=== PATIENT | female | born 1945 | race Caucasian/White ===

== ENCOUNTER 2016-11-13 09:35 | Observation (INO) | payer OTHER, MEDICAID ==
[2016-11-13] MEDS ORDERED: DILTIAZEM 25 MG/5 ML VIAL IVP ONE (09:45)
[2016-11-13] MEDS ORDERED: DILTIAZEM 125 MG in D5W 125 ML IV ONE (09:45)
[2016-11-13 09:50] LABS: % IMMATURE GRANULYOCYTES 1.1 % (0.0-1.1); ABSOLUTE IMMATURE GRANULOCYTES 0.09 10^3/uL (0.00-0.10); ADD DIFF? NO; ADD MORPH? NO; ADD SCAN? NO; ATYPICAL LYMPHOCYTE FLAG 10 (0-99); FRAGMENT RBC FLAG 0 (0-99); HEMATOCRIT 41.1 % (38.0-47.0); HEMOGLOBIN 14.2 g/dL (12.6-16.3); LEFT SHIFT FLG 0 (0-99); LIPEMIA HEMOLYSIS FLAG 90 (0-99); MEAN CELL HEMOGLOBIN 32.1 pg (27.9-34.1); MEAN CELL HEMOGLOBIN CONCENTR. 34.5 g/dL (32.4-36.7); MEAN PLATELET VOLUME 8.8 fL (8.7-11.7); PLATELET CLUMPS FLAG 10 (0-99); PLATELET COUNT 297 10^3/uL (150-400); RED BLOOD CELL COUNT 4.42 10^6/uL (4.18-5.33); RED CELL DISTRIBUTION WIDTH 12.8 % (11.5-15.2)
--- NOTE | 2016-11-13 09:54 | EDPHY ---
H & P HPI/ROS: CHIEF COMPLAINT: Chest pain HISTORY OF PRESENT ILLNESS: Patient complains of chest pain that started around 7:28 a.m. this morning. She resides at [facility] and under independent living status. She says the pain is retrosternal. It is mild to moderate. It is constant. It is much better than at the time of onset. Does not radiate. Some nausea but no vomiting. Some headache. Minimal shortness of breath. No fever chills. No recent cough or illness. She arrives by EMS in atrial fibrillation with RVR but normotensive. She does have a history of atrial fibrillation but she is not anticoagulated, and she is on no rate control agents. She was given 381 mg aspirins en route. No other medications administered. No other associated complaints or modifying factors. REVIEW OF SYSTEMS: Ten systems reviewed and are negative unless otherwise noted in the HPI PERTINENT MEDICAL HISTORY: Atrial fibrillation, previous PA, previous CVA, current smoker EXAMINATION General Appearance: Alert, no distress Head: normocephalic, atraumatic Eyes: Pupils equal and round, no conjunctival pallor or injection ENT, Mouth: Mucous membranes moist Neck: Normal inspection, supple, non-tender Respiratory: Scattered rhonchi. No wheezing, crackles or diminishment. Cardiovascular: Irregularly irregular rhythm Gastrointestinal: Abdomen is soft and nontender Back: non-tender, no bony abnormalities Neurological: GCS 15. A&O, nonfocal, strength 5/5. No facial droop. No dysmetria. No pronator drift. Skin: Warm and dry, no rash. No petechia Extremities: Nontender, no pedal edema Psychiatric: Mood and affect normal DIFFERENTIAL DIAGNOSES: Including but not limited to AFib with RVR, ACS, CAD pneumonia, COPD electrolyte disturbance, hypothyroid MDM: 9:50 a.m. Chest pain along with atrial fibrillation RVR. Pressure is 120-140s systolic. Pain is still present. Chest x-ray, laboratory studies are pending. I have also ordered a bolus and titratable drip of diltiazem. EKG is currently being obtained. 10:05 a.m. EKG does confirm atrial fibrillation with RVR. Her blood pressure remains in the 115-130 systolic. We are proceeding with bolus and drip at 5 milligrams/ hour. Proceed with admission after troponin and chest x-ray returned. 10:30 a.m. Troponin is negative. BNP is slightly elevated. Vital signs remained stable after bolus. Diltiazem drip is currently 2.5 milligrams/hour. Chest x-ray is not yet been obtained, and we have requested this be done at this time. Then we will proceed with admission. 10:40 a.m. Chest x-ray as interpreted by me reveals COPD presentation. No obvious pneumonia. Patient remains hemodynamically stable on the diltiazem drip. I will proceed with admission to the hospitalist. 10:45 a.m. I have discussed the case with the hospitalist Latricia Cooper. She informed me that the patient can be admitted to PCU bed to Dr. Caitlyn Jones. She has been admitted in stable condition on a diltiazem, titrating drips. SUPERVISION: Patient was evaluated in conjunction with the supervising physician. Please see their note for details. Source: Patient, Old records Exam Limitations: No limitations Constitutional: Initial Vital Signs Temperature (C) 96.8 F 11/13/16 09:35 Heart Rate 142 H 11/13/16 09:35 Respiratory Rate 20 11/13/16 09:35 Blood Pressure 141/106 H 11/13/16 09:35 O2 Sat (%) 93 11/13/16 09:35 O2 Delivery Mode Room Air Allergies/Adverse Reactions: olanzapine [From Zyprexa] Allergy (Unknown, Verified 11/13/16 09:46) Unknown Penicillins Allergy (Unknown, Verified 11/13/16 09:46) Unknown theophylline [Theophylline] Allergy (Unknown, Verified 11/13/16 09:46) Unknown amoxicillin Allergy (Verified 11/13/16 09:46) diphenhydramine HCl [From Benadryl] Allergy (Verified 11/13/16 09:46) ENVIRONMENTAL Allergy (Unknown, Uncoded 04/07/11 14:11) Unknown TB VAC Allergy (Uncoded 02/11/11 14:20) theodur Allergy (Uncoded 10/27/09 16:43) Home Medications: Medication Instructions Recorded Metoprolol Tartrate 100 mg PO BID 02/11/11 clonIDINE [Catapres] 0.1 mg PO BID 02/11/11 Norvasc 11/13/16 Medical Decision Making - Data Points Laboratory Results: Laboratory Results 11/13/16 09:40 11/13/16 09:40 11/13/16 11/13/16 11/13/16 09:40 09:40 09:40 WBC 8.43 10^3/uL 10^3/uL (3.80-9.50) RBC 4.42 10^6/uL 10^6/uL (4.18-5.33) Hgb 14.2 g/dL g/dL (12.6-16.3) Hct 41.1 % % (38.0-47.0) MCV 93.0 fL fL (81.5-99.8) MCH 32.1 pg pg (27.9-34.1) MCHC 34.5 g/dL g/dL (32.4-36.7) RDW 12.8 % % (11.5-15.2) Plt Count 297 10^3/uL 10^3/uL (150-400) MPV 8.8 fL fL (8.7-11.7) Neut % (Auto) 63.5 % % (39.3-74.2) Lymph % (Auto) 22.5 % % (15.0-45.0) [place] % (Auto) 10.6 % % (4.5-13.0) Eos % (Auto) 1.7 % % (0.6-7.6) Baso % (Auto) 0.6 % % (0.3-1.7) Nucleat RBC Rel Count 0.0 % % (0.0-0.2) Absolute Neuts (auto) 5.36 10^3/uL 10^3/uL (1.70-6.50) Absolute Lymphs (auto) 1.90 10^3/uL 10^3/uL (1.00-3.00) Absolute Monos (auto) 0.89 10^3/uL H 10^3/uL (0.30-0.80) Absolute Eos (auto) 0.14 10^3/uL 10^3/uL (0.03-0.40) Absolute Basos (auto) 0.05 10^3/uL 10^3/uL (0.02-0.10) Absolute Nucleated RBC 0.00 10^3/uL 10^3/uL (0-0.01) Immature Gran % 1.1 % % (0.0-1.1) Immature Gran # 0.09 10^3/uL 10^3/uL (0.00-0.10) PT 12.1 SEC SEC (12.0-15.0) INR 0.91 (0.83-1.16) APTT 26.8 SEC SEC (23.0-38.0) Sodium 145 mEq/L H mEq/L (134-144) Potassium 4.1 mEq/L mEq/L (3.5-5.2) Chloride 102 mEq/L mEq/L (97-110) Carbon Dioxide 29 mEq/l mEq/l (22-31) Anion Gap 14 mEq/L mEq/L (8-16) BUN 15 mg/dL mg/dL (7-23) Creatinine 0.9 mg/dL mg/dL (0.6-1.0) Estimated GFR > 60 Glucose 115 mg/dL H mg/dL (70-100) Calcium 9.6 mg/dL mg/dL (8.5-10.4) Troponin I < 0.012 ng/mL ng/mL (0-0.034) NT-Pro-B Natriuret Pep 972 pg/mL H pg/mL (0-125) Lipase 232.0 IU/L IU/L (23-300) TSH 1.290 uIU/mL uIU/mL (0.465-4.680) Medications Given: Discontinued Medications Diltiazem HCl (Cardizem 25 Mg/5 Ml Vial) 20 mg IVP EDNOW ONE Stop: 11/13/16 09:46 Last Admin: 11/13/16 10:10 Dose: 20 mg Diltiazem HCl 125 mg/ Dextrose 125 mls @ 0 mls/hr IV EDNOW ONE; As Directed PRN Reason: Protocol Stop: 11/13/16 09:46 Last Admin: 11/13/16 10:20 Dose: 125 mls Departure - Departure Disposition: [facility] Acute Clinical Impression: Acute chest pain, Atrial fibrillation with RVR Condition: Good Referrals: Patient,NotPresent [Primary Care Provider] - As per Instructions
--- NOTE | 2016-11-13 09:55 | CPEKG ---
Heart Rate: 106 RR Interval: 566 QRSD Interval: 76 QT Interval: 348 QTC Interval: 463 QRS [place]: 38 T Wave [place]: 89 EKG Severity - ABNORMAL ECG - EKG Impression: ATRIAL FIBRILLATION Electronically Signed By: Harvinder Peacock 13-Nov-2016 14:34:52
[2016-11-13 09:59] LABS: INR 0.91 (0.83-1.16); PROTIME(PATIENT) 12.1 SEC (12.0-15.0)
[2016-11-13 10:00] LABS: APTT 26.8 SEC (23.0-38.0)
[2016-11-13 10:03] LABS: ANION GAP 14 mEq/L (8-16); CALCIUM 9.6 mg/dL (8.5-10.4); CARBON DIOXIDE 29 mEq/l (22-31); CHLORIDE 102 mEq/L (97-110); CREATININE 0.9 mg/dL (0.6-1.0); GLOMERULAR FILTRATION RATE > 60; GLUCOSE 115 mg/dL (70-100); POTASSIUM 4.1 mEq/L (3.5-5.2); SODIUM 145 mEq/L (134-144)
[2016-11-13 10:16] LABS: TROPONIN I < 0.012 ng/mL (0-0.034)
[2016-11-13] MEDS ORDERED: ONDANSETRON DISINTEGRATING 4 MG TAB PO PRN (12:35)
[2016-11-13] MEDS ORDERED: ONDANSETRON 4 MG/2 ML VIAL IVP PRN (12:35)
[2016-11-13] MEDS ORDERED: DOCUSATE SODIUM 100 MG CAP PO PRN (12:38)
[2016-11-13] MEDS ORDERED: guaiFENesin 200 MG/10 ML UDCUP PO PRN (12:38)
[2016-11-13] MEDS ORDERED: SENNOSIDES/DOCUSATE SODIUM TAB PO PRN (12:38)
[2016-11-13] MEDS ORDERED: MAGNESIUM HYDROXIDE 30 ML UDCUP PO PRN (12:38)
[2016-11-13] MEDS ORDERED: DILTIAZEM 125 MG in D5W 125 ML IV SCH (13:00)
--- NOTE | 2016-11-13 13:26 | CPEKG ---
Heart Rate: 48 RR Interval: 1250 P-R Interval: 148 QRSD Interval: 84 QT Interval: 460 QTC Interval: 411 P [place]: 49 QRS [place]: 32 T Wave [place]: 59 EKG Severity - BORDERLINE ECG - EKG Impression: SINUS BRADYCARDIA Electronically Signed By: Wilbur Grant 13-Nov-2016 16:37:35
--- NOTE | 2016-11-13 13:30 | PDGENHP ---
History and Physical - Chief Complaint chest pain - History of Present Illness 71 yo female with h/o paroxysmal A fib, CAD s/p [place] with 2 stents and h/o CVA presents to ED from [place], where she lives independently, after developing crushing chest pain this morning. She had her morning cigarette and ate breakfast. While resting in bed, she felt tightness and heaviness in her chest. There was no associated SOB, N/V, diaphoresis or radiation of the pain. She denies fevers/chills, abdominal pain, or urinary symptoms. She is not anti-coagulated for her a fib as she states blood thinners make her cold. She takes daily ASA. In the ED, she was found to be in A fib with RVR. A diltiazem drip was started and she is admitted to the PCU for further management. History Information - Allergies/Home Medication List Allergies/Adverse Reactions: olanzapine [From Zyprexa] Allergy (Unknown, Verified 11/13/16 09:46) Unknown Penicillins Allergy (Unknown, Verified 11/13/16 09:46) Unknown theophylline [Theophylline] Allergy (Unknown, Verified 11/13/16 09:46) Unknown amoxicillin Allergy (Verified 11/13/16 09:46) diphenhydramine HCl [From Benadryl] Allergy (Verified 11/13/16 09:46) ENVIRONMENTAL Allergy (Unknown, Uncoded 04/07/11 14:11) Unknown TB VAC Allergy (Uncoded 02/11/11 14:20) theodur Allergy (Uncoded 10/27/09 16:43) Home Medications: Acetaminophen [Tylenol ES 500 mg (*)] 1,000 mg PO TID PRN 11/13/16 [Last Taken 11/13/16 05:00] Aspirin [Aspirin 81mg (*)] 81 mg PO DAILY 11/13/16 [Last Taken 11/11/16] Docusate Sodium [Colace 100 MG (*)] 100 mg PO DAILY PRN 11/13/16 [Last Taken Unknown] Ergocalciferol [Vitamin D2 (*)] 50,000 unit PO Q30D 11/13/16 [Last Taken Unknown ] Herbals/Supplements -Info Only 1 ea PO DAILY 11/13/16 [Last Taken Unknown] Magnesium Hydroxide [Milk of Magnesia] 30 ml PO DAILY PRN 11/13/16 [Last Taken Unknown] Metoprolol Tartrate [Lopressor 50 mg (*)] 50 mg PO BID 11/13/16 [Last Taken 02/22] Sennosides/Docusate Sodium [Senna-S Tablet] 2 each PO DAILY PRN 11/13/16 [Last Taken Unknown] amLODIPine BESYLATE [Norvasc 10 mg (*)] 10 mg PO DAILY 11/13/16 [Last Taken 02/22] clonIDINE [Catapres (*)] 0.1 mg PO DAILY PRN 11/13/16 [Last Taken Unknown] clonIDINE [Catapres (*)] 0.2 mg PO BID 11/13/16 [Last Taken 11/13/16] guaiFENesin [Cough Syrup] 200 mg PO Q4 PRN 11/13/16 [Last Taken Unknown] I have personally reviewed and updated: family history, medical history, social history, surgical history - Past Medical History atrial fibrillation, coronary artery disease, CVA, hypertension, hyperlipidemia Additional medical history: CAD with stents - Surgical History Reports: hysterectomy Additional surgical history: cardiac stents, bladder suspension surgery - Family History Positive for: CAD - Social History Smoking Status: Current every day smoker Alcohol Use: None Drug Use: None Additional social history: 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 Review of Systems ROS: 10pt was reviewed & negative except for what was stated in HPI & below Physical Exam Temp Pulse Resp BP Pulse Ox 36.7 C 47 L 20 101/47 L 93 11/13/16 11:40 11/13/16 13:02 11/13/16 11:40 11/13/16 13:02 11/13/16 11:40 Constitutional: no apparent distress Eyes: PERRL Ears, Nose, Mouth, Throat: moist mucous membranes Cardiovascular: irregularly irregular Respiratory: no respiratory distress, clear to auscultation Gastrointestinal: normoactive bowel sounds, soft, non-tender abdomen Skin: warm Musculoskeletal: full muscle strength, other (no edema) Neurologic: AAOx3 Psychiatric: interacting appropriately Lab Data & Imaging Review 11/13/16 09:40 11/13/16 09:40 WBC 8.43 10^3/uL (3.80-9.50) 11/13/16 09:40 RBC 4.42 10^6/uL (4.18-5.33) 11/13/16 09:40 Hgb 14.2 g/dL (12.6-16.3) 11/13/16 09:40 Hct 41.1 % (38.0-47.0) 11/13/16 09:40 MCV 93.0 fL (81.5-99.8) 11/13/16 09:40 MCH 32.1 pg (27.9-34.1) 11/13/16 09:40 MCHC 34.5 g/dL (32.4-36.7) 11/13/16 09:40 RDW 12.8 % (11.5-15.2) 11/13/16 09:40 Plt Count 297 10^3/uL (150-400) 11/13/16 09:40 MPV 8.8 fL (8.7-11.7) 11/13/16 09:40 Neut % (Auto) 63.5 % (39.3-74.2) 11/13/16 09:40 Lymph % (Auto) 22.5 % (15.0-45.0) 11/13/16 09:40 [place] % (Auto) 10.6 % (4.5-13.0) 11/13/16 09:40 Eos % (Auto) 1.7 % (0.6-7.6) 11/13/16 09:40 Baso % (Auto) 0.6 % (0.3-1.7) 11/13/16 09:40 Nucleat RBC Rel Count 0.0 % (0.0-0.2) 11/13/16 09:40 Absolute Neuts (auto) 5.36 10^3/uL (1.70-6.50) 11/13/16 09:40 Absolute Lymphs (auto) 1.90 10^3/uL (1.00-3.00) 11/13/16 09:40 Absolute Monos (auto) 0.89 10^3/uL (0.30-0.80) H 11/13/16 09:40 Absolute Eos (auto) 0.14 10^3/uL (0.03-0.40) 11/13/16 09:40 Absolute Basos (auto) 0.05 10^3/uL (0.02-0.10) 11/13/16 09:40 Absolute Nucleated RBC 0.00 10^3/uL (0-0.01) 11/13/16 09:40 Immature Gran % 1.1 % (0.0-1.1) 11/13/16 09:40 Immature Gran # 0.09 10^3/uL (0.00-0.10) 11/13/16 09:40 PT 12.1 SEC (12.0-15.0) 11/13/16 09:40 INR 0.91 (0.83-1.16) 11/13/16 09:40 APTT 26.8 SEC (23.0-38.0) 11/13/16 09:40 Sodium 145 mEq/L (134-144) H 11/13/16 09:40 Potassium 4.1 mEq/L (3.5-5.2) 11/13/16 09:40 Chloride 102 mEq/L (97-110) 11/13/16 09:40 Carbon Dioxide 29 mEq/l (22-31) 11/13/16 09:40 Anion Gap 14 mEq/L (8-16) 11/13/16 09:40 BUN 15 mg/dL (7-23) 11/13/16 09:40 Creatinine 0.9 mg/dL (0.6-1.0) 11/13/16 09:40 Estimated GFR > 60 11/13/16 09:40 Glucose 115 mg/dL (70-100) H 11/13/16 09:40 Calcium 9.6 mg/dL (8.5-10.4) 11/13/16 09:40 Troponin I < 0.012 ng/mL (0-0.034) 11/13/16 09:40 NT-Pro-B Natriuret Pep 972 pg/mL (0-125) H 11/13/16 09:40 Lipase 232.0 IU/L (23-300) 11/13/16 09:40 TSH 1.290 uIU/mL (0.465-4.680) 11/13/16 09:40 Visualized and Interpreted Chest x-ray results: Yes Chest X-Ray results: no infiltrate, normal heart size Visualized and Interpreted EKG results: Yes EKG additional interpertation: A fib Assessment & Plan Assessment: A fib with RVR - Paroxysmal by hx. Presented with HR 140's and started on Diltiazem drip. BP initially dropped to 70's, but improved with rate control. She then had a conversion pause on telemetry of about 3 seconds and is now in sinus bradycardia with SBP >100. Chads vasc 5. Discussed anticoagulation, pt reluctant and wants to discuss this with her trusted case consultant. -d/c dilt drip given conversion with pause -holding BB for now with bradycardia -check echo -cardiology to see -ASA for now, but I recommended anti-coagulation. She'd like to discuss this with cards. If she is agreeable, would proceed with Heparin or LMWH until chest pain w/u completed, then transition to coumadin or eliquis. Chest pain - likely secondary to onset of A fib. She is chest pain free at this time. Initial trop neg, EKG non-ischemic. -trend trop -echo as above to r/o WMA -stress test prior to dc -check lipid panel in am and start statin if indicated H/O CAD with prior [place] s/p stent - cont ASA, holding BB due to bradycardia, check lipid status and plan for stress test as above. Hypertension - she is on multiple anti-hypertensives, including Amlodipine, Clonidine and Metoprolol, which are held for now due to hypotension. Will resume as clinically indicated. Full code Dispo - obs
[2016-11-13] MEDS ORDERED: TEMAZEPAM 15 MG CAP PO PRN ×2 (13:45→21:06)
[2016-11-13] MEDS: ACETAMINOPHEN 325 MG TAB PO PRN ×2 (14:07→21:08)
[2016-11-13 15:03] LABS: ALANINE AMINOTRANSFERASE 28 IU/L (9-52); ALBUMIN 4.1 g/dL (3.5-5.0); ALKALINE PHOSPHATASE 76 IU/L (38-126); ASPARTATE AMINOTRANSFERASE 33 IU/L (14-46); BILIRUBIN,TOTAL 0.5 mg/dL (0.1-1.4); BILIRUBIN-CONJUGATED 0.4 mg/dL (0.0-0.5); BILIRUBIN-UNCONJUGATED 0.1 mg/dL (0.0-1.1); TOTAL PROTEIN 6.7 g/dL (6.3-8.2)
[2016-11-13 15:15] LABS: TROPONIN I < 0.012 ng/mL (0-0.034)
[2016-11-13] MEDS ORDERED: NITROGLYCERIN 0.4 MG BTL SL PRN (16:08)
--- NOTE | 2016-11-13 16:08 | GCON ---
[f rep st] CONSULTATION CARDIOLOGY CONSULTATION. REASON FOR CONSULTATION: We were asked by Dr. Caitlyn Jones of [facility] to evaluate the patient for her new onset chest pain, as well as her paroxysmal atrial fibrillation with rapid ventricular rates. HISTORY OF PRESENT ILLNESS: The patient is a 71-year-old female with a history of paroxysmal atrial fibrillation, CAD, status post PTCA and stenting to RCA in 2002, hypertension, ongoing tobacco abuse, who is admitted from the emergency department for atrial fibrillation with rapid ventricular rate. She reports awakening in her usual state of health. At 7:28, she noted a substernal crushing 10/10 chest discomfort. She denies any radiation or associated nausea , diaphoresis, or dyspnea. Symptoms were relieved after she arrived to the emergency department after being given diltiazem for rate control for her atrial fibrillation. Over the past 3 months, she has noted episodes of this chest discomfort that are typically self-relieved. When this episode did not stop, she presented for further evaluation. She also reports that she will have occasional racing heart rates. She reports that she is active with her ADLs. She will walk the halls of [employer]. She notes dyspnea with this but does not need to stop to rest. She denies any pnd, orthopnea, peripheral edema, or presyncope/syncope. She has previously been seen in our office but has been lost to followup, with her last visit being in 2012. PAST MEDICAL HISTORY: 1. CAD. 2. 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 3. Paroxysmal atrial fibrillation. 4. Bilateral shoulder surgery. 5. Previous hernia surgery. 6. Untreated dyslipidemia. 7. Hypertension. 8. Pulmonary hypertension. 9. Bladder suspension surgery. 10. Hysterectomy. 11. History of CVA. OUTPATIENT MEDICATIONS: Yet to be reconciled, but are listed as senna, guaifenesin, magnesium, Colace, clonidine 0.1 daily p.r.n., Tylenol 1000 mg t.i.d., clonidine 0.2 mg p.o. b.i.d., metoprolol tartrate 50 mg p.o. b.i.d., amlodipine 10 mg p.o. daily, vitamin D3, aspirin. ALLERGIES: Listed to Zyprexa, penicillin, theophylline, amoxicillin, diphenhydramine, TB vaccination, [place], and some environmental allergen. SOCIAL HISTORY: Patient reports occasional alcohol. She is an everyday smoker and smokes up to 6 cigarettes daily. REVIEW OF SYSTEMS: As per HPI. A complete 10-point review of systems was obtained and is negative except for what is dictated. PHYSICAL EXAMINATION: VITAL SIGNS: BP of 101/47, heart rate 47, respirations 20, O2 saturation 93% on room air, temp of 98.1 degrees. GENERAL: She is a very pleasant female, in no apparent distress. HEENT: Eyes are without scleral icterus. Mucous membranes moist. HEART: Regular rate and rhythm with a 2/6 systolic ejection murmur, with no radiation into carotids. There is JVD present to mid neck. LUNGS: Clear. ABDOMEN: Soft, with normoactive bowel sounds. No hepatosplenomegaly detected. SKIN: Warm and dry. 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 LABORATORY DATA: CBC with WBC 8.43, hemoglobin 14.2, hematocrit 41.1, platelets of 297. BMP with sodium 145, potassium 4.1, chloride 102, CO2 29, BUN 15, creatinine 0.9, glucose 115. NT proBNP of 972. Last troponin is less than 0.012. TSH of 1.29. 12-lead ECG, personally interpreted, demonstrates sinus bradycardia at 48 with LVH by voltage. 11/13/2016 EKG at 9:45 a.m. shows atrial fibrillation with variable rates up to 150. Chest x-ray showed borderline cardiac prominence with mild cephalization of pulmonary blood flow. I discussed patient's care with Dr. Caitlyn Jones. IMPRESSION AND PLAN: The patient is a 71-year-old female, who presents with crushing chest pressure. 1. Chest pain. The patient has known coronary artery disease. Her first troponin is negative and her EKG appears nonischemic. We will plan to cycle her enzymes and consider cardiac catheterization for further evaluation. 2. Hypertension. Patient reports a history of resistant hypertension. Currently, her blood pressure appears controlled. Her home medications may be continued. 3. Ongoing tobacco abuse. We will plan for cessation counseling prior to her discharge. 4. Atrial fibrillation. She has an elevated CHADS-VASc, as she claims a history of cerebrovascular accident. Her CHADS-VASc score is at least 5. We will address full anticoagulation prior to her discharge. In the past, she has declined this. Currently, she may be placed on aspirin therapy. 5. History of moderate pulmonary hypertension and moderate tricuspid regurgitation. Echo will be repeated. 6. Dyslipidemia. We will plan to obtain repeat lipids during her admission. /[id number]/MODL MTDSantosh
--- NOTE | 2016-11-13 16:37 | ECHO ---
[id number] + + [address] : : [place] [address] : : [phone] + Adult Echocardiographic Report + -----+ :Name: Josephine WHITE Date: 11/13/2016 02:45 PM : : Hospital Admission Number: [id number] Location : 221: :: 1945 Gender: Female Height: 61 in : :Age: 71 yrs Race: WH Weight: 142 lb : :Reason For Study: Eval LV Fx : : BSA: 1.6 meters2 : :History: New onset A-Fib, Chest Pain : + -----+ MMode/2D Measurements \T\ Calculations IVSd: 0.83 cm LVIDd: 4.1 cm FS: 44.6 % Ao root diam: 3.0 cm LVPWd: 0.93 cm LVIDs: 2.3 cm EDV(Teich): 74.5 ml ACS: 1.9 cm ESV(Teich): 17.6 ml EF(Teich): 76.4 % Normal Measurement Values: + + :LVIDd (3.5-5.7cm) IVSd (0.6-1.1cm) LVPWd (0.6-1.1cm) Aortic Root (2.0-3.7cm)Left Atrium (1.5-4.0cm): :LV Vol(d) (76-115ml) LV Vol(s) (29-48ml) Ejec Fraction (50-65%)PV Sony (0.6- 1.2m/s) TV Sony (0.4-1.0m/s) : :MV E Sony (0.8-1.0m/s)MV A Sony (0.3-1.0m/s)LVOT Sony (0.7-1.2m/s) Asc Ao Sony ( 0.9-1.8m/s) : + + Doppler Measurements \T\ Calculations MV E max sony: Ao V2 max: LV V1 max: PA V2 max: 92.8 cm/sec 97.7 cm/sec 87.4 cm/sec 77.4 cm/sec MV A max sony: Ao max PG: LV V1 max PG: PA max P.4 cm/sec 3.8 mmHg 3.1 mmHg 2.4 mmHg MV E/A: 2.2 TR max sony: 319.0 cm/sec TR max P.7 mmHg RAP systole: 5.0 mmHg RVSP(TR): 45.7 mmHg Left Ventricle The left ventricle is normal in size and function. There is normal left ventricular wall thickness. The left ventricular ejection fraction is normal. Ejection Fraction = 76%. No regional wall motion abnormalities noted. Right Ventricle The right ventricle is normal in size and function. Atria The left atrium is mildly dilated. Right atrial size is normal. Mitral Valve The mitral valve is normal in structure and function. There is no evidence of mitral valve prolapse. There is no mitral valve stenosis. There is trace to mild mitral regurgitation. Tricuspid Valve There is mild tricuspid regurgitation. Right ventricular systolic pressure is 46mmHg. There is Doppler evidence for mild pulmonary hypertension. Aortic Valve The aortic valve is normal in structure and function. The aortic valve is trileaflet. There is no aortic stenosis. There is no aortic insufficiency. Pulmonic Valve The pulmonic valve is normal in structure and function. There is no pulmonic valvular regurgitation. Great Vessels The aortic root is normal size. Pericardium/Pleural There is no pericardial effusion. Conclusion A complete two-dimensional transthoracic echocardiogram was performed (2D, M-mode, Doppler and color flow Doppler). The left ventricle is normal in size and function. The left ventricular ejection fraction is normal. Ejection Fraction = 76%. No regional wall motion abnormalities noted. The right ventricle is normal in size and function. The mitral valve is normal in structure and function. There is trace to mild mitral regurgitation. There is mild tricuspid regurgitation. Right ventricular systolic pressure is 46mmHg. There is Doppler evidence for mild pulmonary hypertension. The left atrium is mildly dilated. The aortic valve is normal in structure and function. The aortic valve is trileaflet. There is no pericardial effusion. Final Reading Physician: Dr Denisse Villanueva electronically signed on 11/13/2016 04:36 PM Ordering Physician: Caitlyn Jones Performed By: Atnwan Mejia, CS
[2016-11-13] MEDS: METOPROLOL TARTRATE 25 MG TAB PO SCH (17:47)
[2016-11-13] MEDS: ALPRAZolam 0.25 MG TAB PO PRN (21:18)
[2016-11-14 05:33] LABS: % IMMATURE GRANULYOCYTES 1.2 % (0.0-1.1); ADD DIFF? NO; ADD MORPH? NO; ADD SCAN? NO; ATYPICAL LYMPHOCYTE FLAG 20 (0-99); FRAGMENT RBC FLAG 0 (0-99); HEMATOCRIT 38.9 % (38.0-47.0); HEMOGLOBIN 13.4 g/dL (12.6-16.3); LEFT SHIFT FLG 10 (0-99); LIPEMIA HEMOLYSIS FLAG 90 (0-99); MEAN CELL HEMOGLOBIN 32.4 pg (27.9-34.1); MEAN CELL HEMOGLOBIN CONCENTR. 34.4 g/dL (32.4-36.7); MEAN CELL VOLUME 94.2 fL (81.5-99.8); MEAN PLATELET VOLUME 8.9 fL (8.7-11.7); PLATELET CLUMPS FLAG 0 (0-99); PLATELET COUNT 294 10^3/uL (150-400); RED BLOOD CELL COUNT 4.13 10^6/uL (4.18-5.33); RED CELL DISTRIBUTION WIDTH 13.1 % (11.5-15.2)
[2016-11-14 05:58] LABS: APTT 27.1 SEC (23.0-38.0); INR 0.92 (0.83-1.16); PROTIME(PATIENT) 12.3 SEC (12.0-15.0)
[2016-11-14] MEDS ORDERED: DIAZEPAM 5 MG TAB PO ONE (06:00)
[2016-11-14] MEDS ORDERED: NS 1,000 ML IV ONE (06:00)
[2016-11-14] MEDS ORDERED: ASPIRIN EC 325 MG TAB PO ONE (06:00)
[2016-11-14 06:06] LABS: ANION GAP 12 mEq/L (8-16); CALCIUM 9.5 mg/dL (8.5-10.4); CARBON DIOXIDE 24 mEq/l (22-31); CHLORIDE 106 mEq/L (97-110); CHOLESTEROL 213 mg/dL (140-220); CHOLESTEROL/HDL RATIO 4.63 RATIO (1.00-4.44); CREATININE 0.8 mg/dL (0.6-1.0); GLOMERULAR FILTRATION RATE > 60; GLUCOSE 85 mg/dL (70-100); HIGH DENSITY LIPOPROTEIN 46 mg/dL (40-85); LDL/HDL RATIO 2.67 RATIO (1.00-3.22); LOW DENSITY LIPOPROTEIN 123 mg/dL (80-100); MAGNESIUM 1.9 mg/dL (1.6-2.3); NON-HIGH DENSITY LIPOPROTEIN 167 mg/dL (90-129); POTASSIUM 4.6 mEq/L (3.5-5.2); SODIUM 142 mEq/L (134-144); TRIGLYCERIDE 221 mg/dL (35-135); VERY LOW DENSITY LIPOPROTEINS 44 mg/dL (8-25)
[2016-11-14] MEDS: ACETAMINOPHEN 325 MG TAB PO PRN (08:43)
[2016-11-14] MEDS: ALPRAZolam 0.25 MG TAB PO PRN (08:43)
[2016-11-14] MEDS: METOPROLOL TARTRATE 25 MG TAB PO SCH (08:43)
[2016-11-14] MEDS ORDERED: ASPIRIN 81 MG CHEWABLE TAB PO SCH (09:00)
--- NOTE | 2016-11-14 09:11 | CPEKG ---
Heart Rate: 79 RR Interval: 759 P-R Interval: 132 QRSD Interval: 72 QT Interval: 400 QTC Interval: 459 P [place]: 49 QRS [place]: 32 T Wave [place]: 79 EKG Severity - ABNORMAL ECG - EKG Impression: SINUS RHYTHM EKG Impression: NONSPECIFIC ST_T WAVE ABNORMAILITES Electronically Signed By: Wilbur Grant 14-Nov-2016 14:19:27
[2016-11-14 11:38] VITALS: BP 159/77; PULSE 67; RESP 16; TEMP 98.5; O2SAT 90
[2016-11-14] MEDS ORDERED: ACETAMINOPHEN 500 MG TAB PO PRN (11:49)
[2016-11-14] MEDS ORDERED: ASPIRIN 325 MG TAB PO ONE (14:26)
--- NOTE | 2016-11-14 14:26 | PDIAF ---
- Diagnosis Diagnosis: paroxysmal a fib Code Status: Full Code - Medication Management Discharge Medications: Medications to Continue on Transfer Acetaminophen [Tylenol ES 500 mg (*)] 1,000 mg PO TID PRN 11/13/16 [Last Taken 11/13/16 05:00] Docusate Sodium [Colace 100 MG (*)] 100 mg PO DAILY PRN 11/13/16 [Last Taken Unknown] Ergocalciferol [Vitamin D2 (*)] 50,000 unit PO Q30D 11/13/16 [Last Taken Unknown ] Herbals/Supplements -Info Only 1 ea PO DAILY 11/13/16 [Last Taken Unknown] Magnesium Hydroxide [Milk of Magnesia] 30 ml PO DAILY PRN 11/13/16 [Last Taken Unknown] Metoprolol Tartrate [Lopressor 50 mg (*)] 50 mg PO BID 11/13/16 [Last Taken 02/22] Sennosides/Docusate Sodium [Senna-S Tablet] 2 each PO DAILY PRN 11/13/16 [Last Taken Unknown] amLODIPine BESYLATE [Norvasc 10 mg (*)] 10 mg PO DAILY 11/13/16 [Last Taken 02/22] guaiFENesin [Cough Syrup] 200 mg PO Q4 PRN 11/13/16 [Last Taken Unknown] Aspirin [Aspirin 325 mg (*)] 325 mg PO DAILY #90 tab 11/14/16 [Last Taken Unknown] Discharge Medications: Refer to the Discharge Home Medication list for PRN reason. PICC Care - Routine: N/A - Orders Diet Recommendation: cardiac -low fat low salt - Follow Up Care Current Providers and Referrals: Belen Fajardo PA [Physician Java Web Services Developer] - WILL CISSE [Primary Care Provider] -
--- NOTE | 2016-11-14 16:03 | PDCARPN ---
Cardiology Progress Note Assessment/Plan: Assessment/plan: 71 yo F with hx of remote RCA PCI (2002), last MPI normal in 2012. Also PAF but has previously declined anticoagulation other than aspirin. She was admitted on 11/13 with AFib and rapid ventricular response. With this she had chest pain. Her troponins have been negative. EKG is not remarkable ischemic. Echocardiogram without ischemic wall motion abnormalities. 1. Chest pain and history of coronary disease: Negative troponins. Chest pain resolved. She also reported that when she is having her echo the probe pressing on her chest reproduces her chest pain. Even though she does have a history of coronary disease, I do not think she requires cardiac catheterization. I recommended further risk stratification with a Lexiscan nuclear stress test. The patient declines stress test at this time, citing adverse drug reactions. I cannot find any record of it 1st drug reactions when she has previously had nuclear stress tests. During our interview she is intermittently irritable questions whether not I a.m. actually physician. She ultimately declined either a stress test or catheterization. Continue aspirin, beta-keira. Could discuss statin as outpatient. 2. Paroxysmal atrial fibrillation: Since her currently in sinus rhythm. Continue beta-keira. Continue aspirin. She has declined additional anticoagulation. I did discuss the thromboembolic stroke risk associated with atrial fibrillation. 3. Psychosis: This is complicating her care as she is not, in my opinion, completely understanding the risks of her decision making. She resides at [facility]. Patient is being discharged in stable condition. She can follow up in our clinic. She has previously seen Curtis Lockwood. 11/14/16 16:06 Subjective: Vicky has not had CP since converting from AF to NSR. no SOB Reviewed/Discussed With: hospitalist Objective: Vital Signs (8 Hrs) Temp Pulse Resp BP Pulse Ox 11/14/16 11:36 36.9 C 67 16 159/77 H 90 L Intake/Output (24 Hrs) 11/13/16 11/14/16 11/15/16 05:59 05:59 05:59 Intake Total 100 Output Total 100 Balance 0 Intake: IV Infused (ml) 100 Output: Urine (ml) 100 Toilet 100 Other: Weight 64.5 kg 63.1 kg Intake Quantity Yes Sufficient Number of Voids Toilet 2 appears upset JVP <10 RRR no m/r/g LUngs CTAB No edema Result Diagrams: 11/14/16 04:08 11/14/16 04:08 Cardiac Labs: Cardiac Lab Results (72 Hrs) 11/13/16 14:32 Troponin I < 0.012 EKG: NSR, Minimal lateral ST abnl. Admission: AF with RVR Telemetry: NSR Echocardiogram: Normal LVEF with normal wall motion. Mild PHTN ICD10 Worksheet Patient Problems: Problems Problem Status Onset Acute chest pain Acute Atrial fibrillation with RVR Acute
--- NOTE | 2016-11-14 21:56 | GDS ---
[f rep st] DISCHARGE SUMMARY DISCHARGE DIAGNOSES: 1. Atrial fibrillation with rapid ventricular rate spontaneously converted to normal sinus rhythm a nd remains in normal sinus rhythm at discharge. 2. Chest pain with onset of atrial fibrillation has since resolved. 3. History of coronary artery disease status post prior stenting. 4. Hypertension. 5. History of psychosis with delusional symptoms present during this hospitalization. CONSULTANTS: 1. Belen Fajardo, ERICK Cardiology. 2. Denisse Villanueva MD upset operator. PROCEDURES: 1. Chest x-ray November 13 showed borderline cardiomegaly, no qian pulmonary edema. 2. Echocardiogram November 13 showed normal left ventricular ejection fraction of 76% without regional wall motion abnormalities, trace to mild mitral regurgitation, mild tricuspid regurgitation, and a r ight ventricular systolic pressure of 46. HISTORY: For details please see dictated history and physical dated November 13. In brief, the patient is a 71-year-old female who resides at [place] with history of atrial fibrillation, coronary [place] disease, hypertension and prior stroke, who presents to the emergency department with chest pain and was found to be in rapid AFib. She was admitted to the hospital for further management. HOSPITAL COURSE: Patient was admitted to the progressive care unit. She was started on a diltiazem drip, and shortly thereafter she converted to normal sinus rhythm. She did have some hypotension o n low-dose diltiazem, and upon converting to normal sinus rhythm her hypotension improved though she was in sinus bradycardia. As her heart rate and blood pressure trended up, her beta-keira was re sumed at a lower dose of 12.5 mg twice daily. Her blood pressures had been in the 150s over 70s on the day of discharge, and thus she is discharged to resume her home dose of metoprolol of 50 mg twic e daily. She had negative troponin x2 without evidence of acute ischemia on her EKG. Stress test was recomme nded though the patient refused this. Per discussion with Cardiology, there was no indication for h eart catheterization. She ultimately declined both stress test and heart catheterization. She is c ontinued on daily aspirin, which is increased to 325 mg p.o. daily at discharge. She had previously declined anticoagulation and continues to decline anticoagulation during this hospitalization. Hiro mullins myself and the cardiology team discussed with her the stroke risk associated with AFib. On the da y of discharge, the patient was chest pain-free. She remained hemodynamically stable in normal sinu s rhythm. DISPOSITION: Patient is discharged back to [place] in stable condition. FOLLOWUP: She is instructed to follow up with ERICK Lockwood at [facility] and Ame Gomes MD, her primary care provider. DISCHARGE MEDICATIONS: Please see [facility] for completed and updated outpatient medication list. N ew medications at discharge include aspirin 325 mg p.o. daily. She will continue all other medicati ons as prescribed, and she will resume her usual dose of metoprolol 50 mg p.o. twice daily, as well as resume Norvasc 10 mg p.o. daily for her hypertension. I have held her clonidine at discharge, as her blood pressure was in the 150s over 70s on just a very low dose of metoprolol and since we are resuming her higher metoprolol dose along with her Norvasc dose, I recommend she follow up with her upset operator or primary care provider to recheck her blood pressure and determine if ongoing clonidi ne is indicated. /[id number]/MODL
== END 2016-11-14 16:24 | disposition home or self-care (01) ==
LOC: EDUNIT# → INTOOBSV 10:45 → F2W 11:21
PROVIDERS: ADMIT Hospitalist; ATTEND Hospitalist
DX: I48.0 Paroxysmal atrial fibrillation (principal); I25.10 Atherosclerotic heart disease of native coronary artery without angina pectoris; F29 Unspecified psychosis not due to a substance or known physiological condition; I10 Essential (primary) hypertension; E78.5 Hyperlipidemia, unspecified; I25.2 Old myocardial infarction; Z95.5 Presence of coronary angioplasty implant and graft; F17.210 Nicotine dependence, cigarettes, uncomplicated; Z86.73 Personal history of transient ischemic attack (TIA), and cerebral infarction without residual deficits; Z79.82 Long term (current) use of aspirin
CPT/HCPCS: 93005; 93306; 97161; G0378; G8978; G8979; G8980; 96365; 96366

== ENCOUNTER 2018-03-17 23:30 | Inpatient (IN) | payer OTHER, MEDICAID ==
[2018-03-17] MEDS ORDERED: NITROGLYCERIN 0.4 MG BTL SL PRN (23:39)
[2018-03-18 00:04] LABS: PLATELET COUNT 300 10^3/uL (150-400)
--- NOTE | 2018-03-18 00:18 | EDPHY ---
H & P Stated Complaint: CP OFF/ON X4, HAPPENING X1 MO Time Seen by Provider: 03/17/18 23:31 HPI/ROS: Chief Complaint: Chest tightness HPI: 72-year-old woman with a history of coronary artery disease, atrial fibrillation, ID in the past is presenting with 4 episodes of chest tightness this evening. Patient states that 1st 1 was in the afternoon. He symptoms last about an hour. Most recent pain began about an hour ago. It was the worst of the 3. At worst is a 9/10. Right now is a 4/10. She has not been given any specific medicines for this. He does have a history of ID in the past. She has had cardiac stenting. She states she had a similar episode 2 weeks ago. She has not followed up with her primary care physician for this. No recent illness. No fevers or chills. No cough. No nausea or vomiting. Pain is nonradiating. It is substernal and described as a tightness. ROS: 10 systems were reviewed and were negative except those elements noted in the HPI. PMH: Coronary artery disease, atrial fibrillation, psychosis, dementia Social History: No smoking, no alcohol, no recreational drug use Family History: non-contributory Physical Exam: Gen: Awake, Alert, No Distress HEENT: Nose: no rhinorrhea Eyes: PERRLA, EOMI Mouth: Moist mucosa Neck: Supple, no JVD Chest: nontender, lungs clear to auscultation Heart: S1, S2 normal, no murmur Abd: Soft, non-tender, no guarding Back: no CVA tenderness, no midline tenderness Ext: no edema, non-tender Skin: no rash Neuro: CN II-XII intact, Sensation grossly intact, Strength 5/5 in bilateral upper and lower extremities - Personal History Current Tetanus/Diphtheria Vaccine: No Tetanus Vaccine Date: < 10 years - Medical/Surgical History Hx Asthma: No Hx Chronic Respiratory Disease: No Hx Diabetes: No Hx Cardiac Disease: Yes Hx Renal Disease: No Hx Cirrhosis: No Hx Alcoholism: No Hx HIV/AIDS: No Hx Splenectomy or Spleen Trauma: No Other PMH: afib, 2 strokes, ID, stents, gerd, hysterectomy, bilat carotid surgery, bladder suspension. broken left wrist, c3 and t3 fractures secondary to a fall about 6 years ago. headaches, positive skin test to TB and treated for 6 months, cataract surgery both eyes - Social History Smoking Status: Current every day smoker Constitutional: Initial Vital Signs Temperature (C) 36.5 C 03/17/18 23:30 Heart Rate 60 03/17/18 23:30 Respiratory Rate 18 03/17/18 23:30 Blood Pressure 136/90 H 03/17/18 23:30 O2 Sat (%) 93 03/17/18 23:30 O2 Delivery Mode Room Air Allergies/Adverse Reactions: olanzapine [From Zyprexa] Allergy (Unknown, Verified 03/18/18 00:38) Unknown Penicillins Allergy (Unknown, Verified 03/18/18 00:38) Unknown theophylline [Theophylline] Allergy (Unknown, Verified 03/18/18 00:38) Unknown amoxicillin Allergy (Verified 03/18/18 00:38) diphenhydramine HCl [From Benadryl] Allergy (Verified 03/18/18 00:38) ENVIRONMENTAL Allergy (Unknown, Uncoded 03/18/18 00:38) Unknown TB VAC Allergy (Uncoded 03/18/18 00:38) theodur Allergy (Uncoded 03/18/18 00:38) Home Medications: Medication Instructions Recorded Acetaminophen [Tylenol ES 500 mg 1,000 mg PO TID PRN 11/13/16 (*)] Metoprolol Tartrate [Lopressor 50 50 mg PO BID 11/13/16 mg (*)] amLODIPine BESYLATE [Norvasc 10 mg 10 mg PO DAILY 11/13/16 (*)] guaiFENesin [Cough Syrup] 200 mg PO Q4 PRN 11/13/16 Aspirin [Aspirin 325 mg (*)] 325 mg PO DAILY #90 tab 11/14/16 Advair 250/50 (*) 03/18/18 Claritin 03/18/18 Lisinopril 03/18/18 Vitamin D3 03/18/18 Medical Decision Making - Diagnostics EKG Interpretation: ECG time 11:48 p.m., sinus rhythm with a rate of 56, normal axis, normal intervals, no acute ST or T-wave changes. Impression: Normal ECG. Imaging Results: Imaging Impressions Chest X-Ray 03/17/18 23:38 Impression: 1. Chronic airways disease and interstitial fibrosis. 2. No acute superimposed process. 3. Severe mid thoracic compression fracture, likely old. ED Course/Re-evaluation: Patient's pain is improved. ECG is normal. Troponin is negative. Given her cardiac history and risk factors she will be admitted to the hospital for cardiac rule out. - Data Points Laboratory Results: Laboratory Results 03/17/18 23:15 03/17/18 23:15 03/17/18 03/17/18 03/17/18 23:54 23:15 23:15 WBC 8.76 10^3/uL 10^3/uL (3.80-9.50) RBC 3.78 10^6/uL L 10^6/uL (4.18-5.33) Hgb 12.1 g/dL L g/dL (12.6-16.3) Hct 35.4 % L % (38.0-47.0) MCV 93.7 fL fL (81.5-99.8) MCH 32.0 pg pg (27.9-34.1) MCHC 34.2 g/dL g/dL (32.4-36.7) RDW 13.2 % % (11.5-15.2) Plt Count 300 10^3/uL 10^3/uL (150-400) MPV 9.2 fL fL (8.7-11.7) Neut % (Auto) 59.0 % % (39.3-74.2) Lymph % (Auto) 29.1 % % (15.0-45.0) [place] % (Auto) 9.1 % % (4.5-13.0) Eos % (Auto) 1.9 % % (0.6-7.6) Baso % (Auto) 0.7 % % (0.3-1.7) Nucleat RBC Rel Count 0.0 % % (0.0-0.2) Absolute Neuts (auto) 5.16 10^3/uL 10^3/uL (1.70-6.50) Absolute Lymphs (auto) 2.55 10^3/uL 10^3/uL (1.00-3.00) Absolute Monos (auto) 0.80 10^3/uL 10^3/uL (0.30-0.80) Absolute Eos (auto) 0.17 10^3/uL 10^3/uL (0.03-0.40) Absolute Basos (auto) 0.06 10^3/uL 10^3/uL (0.02-0.10) Absolute Nucleated RBC 0.00 10^3/uL 10^3/uL (0-0.01) Immature Gran % 0.2 % % (0.0-1.1) Immature Gran # 0.02 10^3/uL 10^3/uL (0.00-0.10) Sodium 140 mEq/L mEq/L (135-145) Potassium 4.4 mEq/L mEq/L (3.3-5.0) Chloride 107 mEq/L mEq/L (97-110) Carbon Dioxide 24 mEq/l mEq/l (22-31) Anion Gap 9 mEq/L mEq/L (8-16) BUN 17 mg/dL mg/dL (7-23) Creatinine 0.9 mg/dL mg/dL (0.6-1.0) Estimated GFR > 60 Glucose 98 mg/dL mg/dL (70-100) Calcium 9.3 mg/dL mg/dL (8.5-10.4) POC Troponin I 0.01 ng/mL ng/mL (0.00-0.08) Medications Given: Nitroglycerin (Nitrostat) 0.4 mg SL EDNOW PRN PRN Reason: Chest Pain Last Admin: 03/18/18 00:02 Dose: 0.4 mg Point of Care Test Results: Chemistry 03/17/18 23:54 POC Troponin I 0.01 ng/mL ng/mL (0.00-0.08) Departure - Departure Disposition: [facility] Inpatient Acute Clinical Impression: Chest pain Condition: Fair Referrals: VICTOR HUGO SARKAR [Primary Care Provider] - As per Instructions
[2018-03-18] MEDS ORDERED: ONDANSETRON DISINTEGRATING 4 MG TAB PO PRN (00:54)
[2018-03-18] MEDS ORDERED: ONDANSETRON 4 MG/2 ML VIAL IVP PRN (00:54)
--- NOTE | 2018-03-18 01:44 | CPEKG ---
Test Reason : OPEN Blood Pressure : / mmHG Vent. Rate : 056 BPM Atrial Rate : 056 BPM P-R Int : 145 ms QRS Dur : 080 ms QT Int : 455 ms P-R-T Axes : 048 021 049 degrees QTc Int : 440 ms Sinus rhythm Confirmed by Ignacio Lawrence ([id number]) on 03/18/2018 1:44:00 AM Referred By: Confirmed By:Ignacio Lawrence
--- NOTE | 2018-03-18 02:00 | PDGENHP ---
History and Physical - Chief Complaint Chest pain - History of Present Illness 72 yo F w/ hx of CAD s/p PCI in 2002, AF, and HTN presents with chest pain. She first experienced an episode of chest pain around 3 PM. She experienced the pain on and off for several hours until presenting to the ED this evening. She tells me she felt four distinct episodes. The pain is described as left-sided chest pain, severe, with onset at rest, and association with shortness of breath. She states the pain reminded her of previous cardiac events. Evaluation in the ED has been thus far unremarkable. She is being admitted for further observation. Case discussed with ED physician Dr. Lawrence; records reviewed in EMR. History Information - Allergies/Home Medication List Allergies/Adverse Reactions: olanzapine [From Zyprexa] Allergy (Unknown, Verified 03/18/18 00:38) Unknown Penicillins Allergy (Unknown, Verified 03/18/18 00:38) Unknown theophylline [Theophylline] Allergy (Unknown, Verified 03/18/18 00:38) Unknown amoxicillin Allergy (Verified 03/18/18 00:38) diphenhydramine HCl [From Benadryl] Allergy (Verified 03/18/18 00:38) ENVIRONMENTAL Allergy (Unknown, Uncoded 03/18/18 00:38) Unknown TB VAC Allergy (Uncoded 03/18/18 00:38) theodur Allergy (Uncoded 03/18/18 00:38) Home Medications: Acetaminophen [Tylenol ES 500 mg (*)] 1,000 mg PO TID PRN 11/13/16 [Last Taken 11/13/16 05:00] Metoprolol Tartrate [Lopressor 50 mg (*)] 50 mg PO BID 11/13/16 [Last Taken 02/22] amLODIPine BESYLATE [Norvasc 10 mg (*)] 10 mg PO DAILY 11/13/16 [Last Taken 02/22] guaiFENesin [Cough Syrup] 200 mg PO Q4 PRN 11/13/16 [Last Taken Unknown] Advair 250/50 (*) 03/18/18 [Last Taken Unknown] Claritin 03/18/18 [Last Taken Unknown] Lisinopril 03/18/18 [Last Taken Unknown] Vitamin D3 03/18/18 [Last Taken Unknown] I have personally reviewed and updated: family history, medical history - Past Medical History atrial fibrillation, coronary artery disease, CVA, hypertension, hyperlipidemia Additional medical history: CAD with stents - Surgical History Reports: hysterectomy Additional surgical history: cardiac stents, bladder suspension surgery - Family History Positive for: CAD - Social History Smoking Status: Current every day smoker Additional social history: 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 Review of Systems Review of Systems: ROS: 10pt was reviewed & negative except for what was stated in HPI & below Physical Exam Physical Exam: Temp Pulse Resp BP Pulse Ox 36.5 C 59 L 14 102/46 L 94 03/17/18 23:30 03/18/18 01:45 03/18/18 01:45 03/18/18 01:45 03/18/18 01:45 Constitutional: no apparent distress, not in pain Eyes: PERRL, EOMI Ears, Nose, Mouth, Throat: moist mucous membranes, no oral mucosal ulcers Cardiovascular: regular rate and rhythym, no murmur, rub, or gallop Respiratory: no respiratory distress, clear to auscultation Gastrointestinal: normoactive bowel sounds, soft, non-tender abdomen Skin: warm, normal color Musculoskeletal: full muscle strength, no muscle tenderness Neurologic: AAOx3, CN II-XII Intact Psychiatric: interacting appropriately, not anxious Lab Data & Imaging Review 03/17/18 23:15 03/17/18 23:15 WBC 8.76 10^3/uL (3.80-9.50) 03/17/18 23:15 RBC 3.78 10^6/uL (4.18-5.33) L 03/17/18 23:15 Hgb 12.1 g/dL (12.6-16.3) L 03/17/18 23:15 Hct 35.4 % (38.0-47.0) L 03/17/18 23:15 MCV 93.7 fL (81.5-99.8) 03/17/18 23:15 MCH 32.0 pg (27.9-34.1) 03/17/18 23:15 MCHC 34.2 g/dL (32.4-36.7) 03/17/18 23:15 RDW 13.2 % (11.5-15.2) 03/17/18 23:15 Plt Count 300 10^3/uL (150-400) 03/17/18 23:15 MPV 9.2 fL (8.7-11.7) 03/17/18 23:15 Neut % (Auto) 59.0 % (39.3-74.2) 03/17/18 23:15 Lymph % (Auto) 29.1 % (15.0-45.0) 03/17/18 23:15 [place] % (Auto) 9.1 % (4.5-13.0) 03/17/18 23:15 Eos % (Auto) 1.9 % (0.6-7.6) 03/17/18 23:15 Baso % (Auto) 0.7 % (0.3-1.7) 03/17/18 23:15 Nucleat RBC Rel Count 0.0 % (0.0-0.2) 03/17/18 23:15 Absolute Neuts (auto) 5.16 10^3/uL (1.70-6.50) 03/17/18 23:15 Absolute Lymphs (auto) 2.55 10^3/uL (1.00-3.00) 03/17/18 23:15 Absolute Monos (auto) 0.80 10^3/uL (0.30-0.80) 03/17/18 23:15 Absolute Eos (auto) 0.17 10^3/uL (0.03-0.40) 03/17/18 23:15 Absolute Basos (auto) 0.06 10^3/uL (0.02-0.10) 03/17/18 23:15 Absolute Nucleated RBC 0.00 10^3/uL (0-0.01) 03/17/18 23:15 Immature Gran % 0.2 % (0.0-1.1) 03/17/18 23:15 Immature Gran # 0.02 10^3/uL (0.00-0.10) 03/17/18 23:15 Sodium 140 mEq/L (135-145) 03/17/18 23:15 Potassium 4.4 mEq/L (3.3-5.0) 03/17/18 23:15 Chloride 107 mEq/L (97-110) 03/17/18 23:15 Carbon Dioxide 24 mEq/l (22-31) 03/17/18 23:15 Anion Gap 9 mEq/L (8-16) 03/17/18 23:15 BUN 17 mg/dL (7-23) 03/17/18 23:15 Creatinine 0.9 mg/dL (0.6-1.0) 03/17/18 23:15 Estimated GFR > 60 03/17/18 23:15 Glucose 98 mg/dL (70-100) 03/17/18 23:15 Calcium 9.3 mg/dL (8.5-10.4) 03/17/18 23:15 POC Troponin I 0.01 ng/mL (0.00-0.08) 03/17/18 23:54 Imaging Review: Imaging Impressions Chest X-Ray 03/17/18 23:38 Impression: 1. Chronic airways disease and interstitial fibrosis. 2. No acute superimposed process. 3. Severe mid thoracic compression fracture, likely old. Visualized and Interpreted EKG results: Yes EKG Interpretation: Positive for: normal sinsus rhythm Assessment & Plan Assessment: 72 yo F w/ hx of CAD s/p PCI in 2002, AF, and HTN presents with chest pain. Plan: 1. Chest pain - Patient describes severe, left-sided chest pain occurring at rest for several hours on day of admission. Initial evaluation unremarkable: troponin negative and ECG(personally interpreted) in sinus rhythm with no signs of acute ischemia. HEART score of 5 necessitating further inpatient observation. - Admit to PCU for observation - Monitor on telemetry, trend cardiac enzymes - Proceed per chest pain protocol pending above 2. Hx CAD - S/p PCI in 2002; last available stress test was in 2012 and normal. She has refused anticoagulation and risk stratification in the past. - Acute management as above - Continue home medications pending reconciliation 3. AF - In NSR on admission; on BB as outpatient, has refused anticoagulation in the past. - Monitor on telemetry 4. HTN - Continue home medications. Diet - NPO Code - Full Ppx - LMWH Dispo - Admit under observation status
[2018-03-18] MEDS: ACETAMINOPHEN 325 MG TAB PO PRN ×2 (02:12→06:22)
[2018-03-18 05:04] LABS: PLATELET COUNT 250 10^3/uL (150-400)
[2018-03-18] MEDS ORDERED: ENOXAPARIN 40 MG/0.4 ML SYR SC SCH (09:00)
[2018-03-18] MEDS: FLUTICASONE/SALMETER 250/50MCG DISKUS IH SCH ×2 (09:53→19:33)
[2018-03-18] MEDS: LISINOPRIL 5 MG TAB PO SCH (10:23)
[2018-03-18] MEDS: ASPIRIN 325 MG TAB PO SCH (10:23)
[2018-03-18] MEDS: METOPROLOL TARTRATE 50 MG TAB PO SCH ×2 (10:24→22:14)
--- NOTE | 2018-03-18 12:22 | ASMTCMCOM ---
CM Note CM Note Notes: 03/18/2018 Case Management Note Reviewed chart and discussed with Abad at [facility] [facility]. 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 Staff at [facility] transported pt to [facility] for evaluation d/t pt complaint of radiating chest pain. Faxed updates to Abad at [facility]. Case Management d/c poc: return to [facility] [facility] Case Management to follow. Date Signed: 03/18/2018 12:21 PM Electronically Signed By:Shaina Banda RN
[2018-03-18] MEDS ORDERED: NS 1,000 ML IV ONE (12:27)
[2018-03-18] MEDS ORDERED: DIAZEPAM 5 MG TAB PO ONE (12:27)
[2018-03-18] MEDS ORDERED: FAMOTIDINE 20 MG TAB PO ONE (12:27)
--- NOTE | 2018-03-18 13:32 | GCON ---
DATE OF CONSULTATION: 03/18/2018 REASON FOR CONSULTATION: We are asked to consult by the hospitalist for chest pain and known coronary artery disease with stents placed in 2002. HISTORY OF PRESENT ILLNESS: A 72-year-old female who has a history of coronary artery disease with stents placed in 2002. Additionally, she has a history of atrial fibrillation and hypertension. Most recently, she experienced chest pain yesterday about 3:00 p.m. in the afternoon. This pain waxed and waned over several hours, until she decided to go to the emergency room for further evaluation. At the time of arrival to the hospital she reports that her chest pain was a 9/10. The pain was presenting on the left side of the chest and very severe. The pain came on at rest and did have associated shortness of breath. The pain was similar to previous cardiac episodes. It was determined to admit her for further observation. On my arrival to evaluate her she reported that at that time the pain was much better, about 3/10. She was given sublingual nitroglycerin in the emergency room and diazepam. MEDICATION ALLERGIES: Zyprexa, penicillin, theophylline, amoxicillin, Benadryl , and environmental allergies. MEDICATION: She currently is on: Norvasc 10 mg daily; Aspirin 325 mg daily; Lovenox 40 mg subcu daily; Zestril 5 mg daily; Metoprolol tartrate 50 mg twice daily. PAST MEDICAL HISTORY 1. Atrial fibrillation. 2. Coronary artery disease. 3. CVA. 4. Hypertension. 5. Hyperlipidemia. PAST SURGICAL HISTORY 1. Three Synergy stents placed in 2002. 2. Hysterectomy. 3. Bladder suspension. 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 REVIEW OF SYSTEMS: A 10-point Review of Systems was done and negative except for that in HPI. PHYSICAL EXAMINATION: VITAL SIGNS: Blood pressure 141/70, heart rate 65 and regular, oxygen saturation 98%. Temperature 36.3. EKG on 03/18/2018 shows sinus bradycardia. CONSTITUTIONAL: She is alert and in no distress. EYES: Sclera are white with EOMI. CARDIOVASCULAR: Heart rate is regular with mild murmur. No rub , or gallop. RESPIRATORY: Lungs are clear to auscultation, no wheezes, rales, or rhonchi noted. GASTROINTESTINAL: Bowel sounds are normal. ABDOMEN: Soft and nontender. SKIN: Warm and dry. MUSCULOSKELETAL: Full, good muscle strength. NEUROLOGICAL: Alert and oriented x3. INVESTIGATION REPORTS: On admission 03/17/2018, chest x-ray showed: 1. Chronic airway disease and interstitial fibrosis. 2. No acute superimposed process. 3. Severe mid thoracic compression fracture, likely old. 03/17/2018, electrocardiogram showed sinus bradycardia with rate 56, lead 3, Q- wave. Myocardial perfusion imaging in March 22, 2011. This was done at [facility]. Dr. Godfrey Mccord was ordering physician, test showed normal myocardial perfusion study. No evidence of ischemia or prior myocardial infarction. Ejection fraction 77%. No wall motion abnormalities. IMPRESSION AND PLAN: 1. Coronary artery disease with stent placed in 2002. She comes in to the emergency room with chest pain rated 9/10. It did improve this morning. She tells me she has mild chest discomfort rated at a 3/10. Her troponins were negative at 0.033. Creatinine noted at 0.9. 2. Hypertension. Her blood pressure is currently well managed on metoprolol, lisinopril, and aspirin. 3. Atrial fibrillation. She has had no recent episodes of atrial fibrillation. She has not been on anticoagulation in the past, however, does continue on aspirin. 4. Tobacco abuse. She continues to smoke cigarettes. We did discuss options for further evaluation. In the past, she has had a cardiac Lexiscan stress test. However, she reports that she did not tolerate it well and refuses to do a Lexiscan stress test. We discussed cardiac angiogram, which she is willing to proceed with. This has been discussed with Dr. Theodore Parker, who is willing to take her to the cardiac center medical and lab director to further evaluate for progressing cardiac disease. She has been n.p.o. since midnight. She understands that the angiogram will be done this afternoon. She is in agreement with this plan. All questions were answered. She will proceed with cardiac angiogram with Theodore Parker MD. /[id number]/MODL and [id number]/MODL [facility]
[2018-03-18] MEDS ORDERED: MIDAZOLAM 2 MG/2 ML VIAL ONE ×2 (14:04)
[2018-03-18] MEDS ORDERED: LIDOCAINE 1% 300 MG/30 ML SDV ONE (14:04)
[2018-03-18] MEDS ORDERED: fentaNYL 100 MCG/2 ML INJ ONE (14:04)
[2018-03-18] MEDS ORDERED: IOPAMIDOL (ISOVUE-370) 150 ML BTL IV ONE (14:04)
[2018-03-18] MEDS ORDERED: CLOPIDOGREL BISULFATE 75 MG TAB ONE (14:11)
[2018-03-18] MEDS ORDERED: CLOPIDOGREL BISULFATE 75 MG TAB PO ONE (14:15)
--- NOTE | 2018-03-18 14:49 | PDPROPOC ---
Sedation Plan of Care Sedation Plan of Care: mental status noted, patient educated of risks, benefits , alternatives, patient can tolerate sedation ASA Classification: ASA 2 Planned drugs: fentanyl, midazolam Mallampati Score: Class 2 Mallampati Reference Image:
--- NOTE | 2018-03-18 14:50 | PDHPUP ---
History & Physical Update H&P update statement: This history and physical update is based on an assessment of the patient which was completed after admission or registration (within 24 hours), but prior to the surgery/procedure. H&P update: H&P reviewed & patient examined, no change in patient's condition since H&P completed
[2018-03-18] MEDS ORDERED: BIVALIRUDIN 250 MG/5 ML VIAL IV ONE (15:11)
[2018-03-18] MEDS ORDERED: NITROGLYCERIN 0.4 MG BTL SL PRN (15:40)
--- NOTE | 2018-03-18 16:19 | CPIP ---
DATE OF PROCEDURE: 03/18/2018 INDICATION FOR PROCEDURE: Unstable angina. PROCEDURE: 1. Nonselective right groin sheathogram. 2. Bilateral coronary angiography. 3. Left heart catheterization. 4. Left ventriculogram. HISTORY: Briefly, this is a 72-year-old female with history of coronary artery disease, positive smo manolo who is admitted for unstable angina. The patient consented for left heart catheterization. DESCRIPTION OF PROCEDURE: After informed consent was obtained, the patient was brought to [facility] where the right groin was prepped and draped in sterile fashion. Using lidocaine, a short 6-S[place] sheath in the right common femoral artery verified angiographically. Through this 6-S[place] sheath, a JL4 ca theter was advanced up to the left coronary artery. A JL4 catheter was advanced. Angiography showed normal left main. Left circumflex had 80% to 90% lesion proximally, followed by a tubular area of l east 43% stenosis. Distal marginal 1 appeared to be widely patent. The LAD had diffuse disease in i ts proximal mid section ranging up to 70% distally. The LAD was a serpiginous vessel, but was health y and patent. There were tiny diagonal arteries coming off the LAD. After these images were obtained, the JL4 catheter was removed. A JR4 catheter was advanced to the r ight coronary artery. Images of the right coronary artery revealed normal ostial RCA. The proximal RCA revealed a 70% proximal and 89% mid distal severe in-stent restenosis. The distal RPDA appeared to be healthy and free of disease. The RPL appeared to be healthy and free of disease as well. After images were obtained, The JR4 catheter was removed. The pigtail catheter was advanced in the l eft ventricle. LVEDP is mmHg. Left ventriculogram in RUIZ projection showed EF of 60% wit h no wall motion abnormalities. There was no pullback gradient aorta. Pigtail catheter w as removed with the FiberWire. Right groin closed with manual pressure. Patient tolerated the proced ure well. No complications. IMPRESSION: 1. Triple-vessel coronary artery disease. 2. Normal ejection fraction. PLAN: The patient will be seen by Dr. Mack from CT surgery for potential CABG. Further orders foll owing clinical course. /[id number]/MODL
--- NOTE | 2018-03-18 16:35 | GCON ---
DATE OF CONSULTATION: 03/18/2018 REFERRING PHYSICIAN: Theodore Parker MD Patient seen at the request of Dr. Parker with the patient's permission. IMPRESSION: 1. Unstable angina pectoris with severe 3-vessel disease. 2. Chronic obstructive pulmonary disease with chronic ongoing cigarette abuse. 3. Multiple questionable allergies, including Zyprexa, penicillin, theophylline, amoxicillin, Benadr yl, and miliary tuberculosis vaccination. RECOMMENDATIONS: 1. The patient has critical 3-vessel disease presenting with unstable angina pectoris. She should u ndergo coronary artery revascularization. We will perform a blood gas to rule out any CO2 retention, although clinically appears to not be severe given her history of paroxysmal atrial fibrillation. W e will also perform a Roman Maze IV and left atrial appendage ligation with intraoperative GREG to rule out thrombus. Risk is 2% to 3% given her comorbidities and heavy ongoing cigarette abuse history. HISTORY OF PRESENT ILLNESS: This is a 72-year-old female with a history of multiple PCIs, atrial fib rillation, and hypertension who presents with chest pain. She underwent diagnostic left heart cath, was noted to have severe 3-vessel disease with preserved LV function. Past medical history is obtain ed from the record. She is currently somewhat somnolent post-cath. PAST MEDICAL HISTORY: Previous medical history is atrial fibrillation, coronary artery disease, stro ke, hypertension, and hyperlipidemia. PAST SURGICAL HISTORY: Previous surgeries, include stents of the coronaries, bladder suspension. SOCIAL HISTORY: She is a current everyday smoker. 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 REVIEW OF SYSTEMS: At the present time were unobtainable. PHYSICAL EXAMINATION: GENERAL: This is an elderly female lying supine in bed, in no apparent distre ss. HEART: Rate is regular without murmur, S3 or S4. LUNGS: Clear. ABDOMEN: Soft, nontender. B owel sounds are active. RECTAL/GENITAL: Exams were deferred. NEUROLOGIC: Grossly intact. VASCULA R: Femoral pulses are 2+. /[id number]/MODL
[2018-03-18 19:09] LABS: PROTIME(PATIENT) 13.4 SEC (12.0-15.0)
[2018-03-18] MEDS ORDERED: TEMAZEPAM 15 MG CAP PO PRN (19:25)
--- NOTE | 2018-03-18 20:45 | HOSPPROG ---
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 Mack's service tomorrow am when she goes to surgery Subjective: Cardiology recommended stress test but she refused as she has had adverse reaction in past. She was agreeabe to cardiac cath - this showed triple vessel disease Objective: Vital Signs Temp Pulse Resp BP Pulse Ox 36.5 C 69 22 H 125/58 H 93 03/18/18 20:20 03/18/18 20:20 03/18/18 20:20 03/18/18 20:20 03/18/18 20:20 03/17/18 03/18/18 03/19/18 05:59 05:59 05:59 Intake Total 300 Balance 300 PT 13.4 SEC (12.0-15.0) 03/18/18 18:43 INR 1.00 (0.83-1.16) 03/18/18 18:43 case d/w Luh Pinzon of cardiology - NPO and await cardiology opinion regarding how to proceed CXR - COPD Laboratory Tests 03/17/18 03/17/18 03/18/18 23:15 23:54 04:25 Hct 35.4 L 32.4 L POC Troponin I 0.01 Troponin I 03/18/18 04:25 Hct POC Troponin I Troponin I 0.033 - Physical Exam Constitutional: no apparent distress, appears nourished, not in pain Cardiovascular: regular rate and rhythym, no murmur, rub, or gallop Respiratory: no respiratory distress, no rales or rhonchi, clear to auscultation Gastrointestinal: normoactive bowel sounds, soft, non-tender abdomen, no palpable masses Skin: no rashes or abrasions, no fluctuance, no induration Neurologic: AAOx3, sensation intact bilaterally Psychiatric: interacting appropriately, not anxious, not encephalopathic, thought process linear ICD10 Worksheet Patient Problems: Problems Problem Status Onset Chest pain Acute Acute chest pain Acute Atrial fibrillation with RVR Acute
[2018-03-18] MEDS ORDERED: CHLORHEXIDINE GLUC HIBICLENS 118 ML BTL TP SCH (21:00)
[2018-03-18] MEDS: HEPARIN 5,000 UNIT/0.5 ML INJ SC SCH (22:18)
[2018-03-18] MEDS: MUPIROCIN 2% 22 GM OINT NS SCH (22:18)
[2018-03-19] MEDS: SENNOSIDES/DOCUSATE SODIUM TAB PO SCH ×2 (00:20→13:09)
[2018-03-19] MEDS: MUPIROCIN 2% 22 GM OINT NS SCH ×2 (06:19→20:55)
[2018-03-19] MEDS ORDERED: CALCIUM CHLORIDE 1 GM/10 ML INJ ONE ×2 (06:33→06:35)
[2018-03-19] MEDS ORDERED: PROTAMINE SULFATE 50 MG/5 ML VIAL IVP ONE (06:33)
[2018-03-19] MEDS ORDERED: NA BICARBONATE 50 MEQ/50 ML VIAL ONE (06:33)
[2018-03-19] MEDS ORDERED: MILRINONE/DEXTROSE/100 ML BAG IV ONE (06:33)
[2018-03-19] MEDS ORDERED: niCARdipine/NACL/200 ML BAG IV ONE (06:34)
[2018-03-19] MEDS ORDERED: HEPARIN 10,000 UNIT/10 ML MDV (1,000 UNIT/ML) ONE ×2 (06:34→06:36)
[2018-03-19] MEDS ORDERED: DOPamine/DEXTROSE 400 MG/250 ML BAG IV ONE (06:34)
[2018-03-19] MEDS ORDERED: AMIODARONE HCL 150 MG/3 ML VIAL ONE ×2 (06:35→06:36)
[2018-03-19] MEDS ORDERED: ceFAZolin 1 GM VIAL ONE (06:35)
[2018-03-19] MEDS ORDERED: NITROGLYCERIN/D5W 50 MG/250 ML BOTTLE IV ONE (06:35)
[2018-03-19] MEDS ORDERED: ADENOSINE 6 MG/2 ML VIAL ONE (06:35)
[2018-03-19] MEDS ORDERED: ALBUMIN 5% 250 ML BOTTLE IV ONE (06:35)
[2018-03-19] MEDS ORDERED: LIDOCAINE 2% 100 MG/5 ML SYR ONE (06:36)
[2018-03-19] MEDS ORDERED: CITRATE DEXTROSE SOLN 500 ML BAG ONE (06:36)
[2018-03-19] MEDS ORDERED: MAGNESIUM SULFATE 1 GM/2 ML VIAL ONE (06:37)
[2018-03-19] MEDS ORDERED: methylPREDNISolone SOD SUCC 1 GM/8 ML VIAL ONE (06:37)
--- NOTE | 2018-03-19 07:20 | PDCARPN ---
Cardiology Progress Note Chief Complaint: CP Assessment/Plan: Assessment: CP 3-vessel CAD NL EF Plan: 03/19/18 07:[address] Mack Given 3V disease and failed prior stents, patient is better suited with CABG Patient is alert/oriented and agrees and understands with plan check echo today Subjective: feels well Reviewed/Discussed With: multidisciplinary team Time Spent with Patient: greater than 25 minutes Time Spent with Patient: Greater than 25 minutes spent on this patients care, greater than 50% of time spent counseling, educating, and coordinating care regarding the above mentioned plan. Objective: Vital Signs (8 Hrs) Temp Pulse Resp BP Pulse Ox 03/19/18 06:22 36.6 C 67 18 113/50 L 93 03/19/18 05:35 36.7 C 67 19 113/50 L 93 Intake/Output (24 Hrs) 03/18/18 03/19/18 03/20/18 05:59 05:59 05:59 Intake Total 900 Balance 900 Intake: Oral (ml) 900 Other: Weight 69.2 kg Number of Voids Toilet 3 Number of Stools Toilet 1 Result Diagrams: 03/19/18 05:45 03/19/18 05:45 - Physical Exam Constitutional: healthy appearing Eyes: PERRL Ears, Nose, Mouth, Throat: moist mucous membranes Cardiovascular: regular rate and rhythm Peripheral Pulses: 1+: femoral (R), femoral (L) Respiratory: clear to auscultate bilat Gastrointestinal: normoactive bowel sounds Genitourinary: no suprapubic tenderness Musculoskeletal: no muscular tenderness Psychiatric: cooperative ICD10 Worksheet Patient Problems: Problems Problem Status Onset Chest pain Acute Acute chest pain Acute Atrial fibrillation with RVR Acute
[2018-03-19] MEDS ORDERED: PAPAVERINE HCL 60 MG/2 ML SDV ONE (07:26)
[2018-03-19] MEDS ORDERED: VERAPAMIL 5 MG/2 ML VIAL ONE (07:27)
[2018-03-19] MEDS ORDERED: SODIUM BICARBONATE 20 MEQ, LIDOCAINE 1% 10 ML in NORMOSOL-R 1,000 ML MISC ONE (07:30)
[2018-03-19] MEDS ORDERED: NOREPINEPHRINE BITARTRATE 16 MG in NS 250 ML IV ONE (07:30)
[2018-03-19] MEDS ORDERED: AMINOCAPROIC ACID 5 GM/20 ML VIAL IV ONE (07:30)
[2018-03-19] MEDS ORDERED: PHENYLEPHRINE HCL 50 MG in NS 250 ML IV ONE (07:30)
[2018-03-19] MEDS ORDERED: VANCOMYCIN HCL/NORMAL SALINE 250 ML IV ONE (07:30)
[2018-03-19] MEDS ORDERED: niCARdipine/NACL 200 ML IV ONE (07:30)
[2018-03-19] MEDS ORDERED: INSULIN REGULAR HUMAN 100 UNIT in NS 100 ML IV ONE (07:30)
[2018-03-19] MEDS ORDERED: CITRATE DEXTROSE SOLN 500 ML BAG MISC ONE (07:30)
[2018-03-19] MEDS ORDERED: VANCOMYCIN PHARMACY TO DOSE MISC ONE (07:30)
[2018-03-19] MEDS ORDERED: VERAPAMIL 5 MG, NITROGLYCERIN 2.5 MG, HEPARIN 500 UNIT, SODIUM BICARBONATE 0.2 MEQ in L... MISC ONE (07:30)
[2018-03-19] MEDS ORDERED: MANNITOL 25% 12.5 GM/50 ML VIAL IVP ONE (07:30)
[2018-03-19] MEDS ORDERED: LR 1,000 ML IV ONE (08:21)
--- NOTE | 2018-03-19 08:31 | PDMN ---
Medical Necessity Medical necessity: Change to IP, as of 03/18/18, per MD & MCG M-40; los >2 mn for ongoing management of unstable angina w/3-vessel CAD; requiring CABG w/ further monitoring; hx AFIB, COPD, delusions, stroke, HTN
[2018-03-19] MEDS ORDERED: MIDAZOLAM 2 MG/2 ML VIAL IVP ONE (08:34)
--- NOTE | 2018-03-19 08:34 | PDANEPAE ---
ANE History of Present Illness here for CABG ANE Past Medical History - Cardiovascular History Hx Hypertension: Yes Hx Arrhythmias: Yes Hx Chest Pain: Yes Hx Coronary Artery / Peripheral Vascular Disease: Yes Hx CHF / Valvular Disease: No Hx Palpitations: No - Pulmonary History Hx COPD: Yes Hx Asthma/Reactive Airway Disease: No Hx Recent Upper Respiratory Infection: No Hx Oxygen in Use at Home: No Hx Sleep Apnea: No Sleep Apnea Screening Result - Last Documented: Positive - Endocrine History Hx Diabetes: No - Renal History Hx Renal Disorders: No - Chronic Pain History Chronic Pain: Yes ANE Review of Systems Review of systems is: negative Review of Systems: - Exercise capacity Exercise capacity: <4 METS ANE Patient History - Allergies Allergies/Adverse Reactions: olanzapine [From Zyprexa] Allergy (Unknown, Verified 03/18/18 00:38) Unknown Penicillins Allergy (Unknown, Verified 03/18/18 00:38) Unknown theophylline [Theophylline] Allergy (Unknown, Verified 03/18/18 00:38) Unknown amoxicillin Allergy (Verified 03/18/18 00:38) diphenhydramine HCl [From Benadryl] Allergy (Verified 03/18/18 00:38) morphine Allergy (Verified 03/19/18 08:42) Unknown ENVIRONMENTAL Allergy (Unknown, Uncoded 03/18/18 00:38) Unknown TB VAC Allergy (Uncoded 03/18/18 00:38) theodur Allergy (Uncoded 03/18/18 00:38) - Home Medications Home medications: home medication list seen and reviewed Home Medications: Acetaminophen [Tylenol ES 500 mg (*)] 1,000 mg PO TID PRN 11/13/16 [Last Taken 11/13/16 05:00] Metoprolol Tartrate [Lopressor 50 mg (*)] 50 mg PO BID 11/13/16 [Last Taken 02/22] amLODIPine BESYLATE [Norvasc 10 mg (*)] 10 mg PO DAILY 11/13/16 [Last Taken 02/22] guaiFENesin [Cough Syrup] 200 mg PO Q6HRS PRN 11/13/16 [Last Taken Unknown] Cholecalciferol Vit D3 [Vitamin D3 (*)] 50,000 unit PO Q30D 03/18/18 [Last Taken Unknown] Fluticasone/Salmeter 250/50Mcg [Advair 250/50 (*)] 1 puffs IH BID 03/18/18 [ Last Taken Unknown] Lisinopril [Zestril 2.5 mg (*)] 5 mg PO DAILY 03/18/18 [Last Taken Unknown] Loratadine [Claritin 10 mg] 10 mg PO DAILY PRN 03/18/18 [Last Taken Unknown] - NPO status NPO Status: no food or drink >8 hours NPO Since - Liquids (Date): 03/19/18 NPO Since - Liquids (Time): 00:05 NPO Since - Solids (Date): 03/18/18 NPO Since - Solids (Time): 18:00 - Anes Hx Anes Hx: no prior problems - Smoking Hx Smoking Status: Current every day smoker ANE Labs/Vital Signs - Labs Result Diagrams: 03/19/18 05:45 03/19/18 05:45 - Vital Signs Blood Pressure: 122/68 Heart Rate: 71 Respiratory Rate: 18 O2 Sat (%): 93 Height: 154.94 cm Weight: 69.2 kg ANE Physical Exam - Airway Neck exam: FROM Mallampati Score: Class 1 Mouth exam: dentures - Pulmonary Pulmonary: no respiratory distress - Cardiovascular Cardiovascular: regular rate and rhythym - ASA Status ASA Status: IV ANE Anesthesia Plan Anesthesia Plan: general endotracheal anesthesia Lines/Monitors: arterial line, central line, GREG
[2018-03-19] MEDS ORDERED: fentaNYL 250 MCG/5 ML INJ ONE (08:45)
[2018-03-19] MEDS ORDERED: PROPOFOL/EMULSION 500 MG/50 ML BOTTLE IV ONE (08:46)
[2018-03-19] MEDS: FLUTICASONE/SALMETER 250/50MCG DISKUS IH SCH ×2 (09:33→20:43)
--- NOTE | 2018-03-19 09:50 | ECHO ---
[email or web address] [address] [address] Main: [phone] Fax: [email or web address] Echocardiogram Name: ZANE WHITE MR#: [id number] Study Date: 03/18/2018 Study Time: 04:31 PM Date of : 1945 Age: 72 year(s) Height: 154.9 cm (61 in.) Weight: 69.85 kg (154 lb.) BSA: 1.69 m2 Gender: Female Examination: Echo Indication: Pre CABG Image Quality: Contrast: Requested by: Delta Mack BP: / Heart Rate: Rhythm: Indication: Pre CABG Procedure Staff Career Based Intervention Coordinator: Antwan Mejia RDCS Reading Physician: Heath Long MD Requesting Provider: Conclusions: Normal size left ventricle. No LV hypertrophy. Normal global systolic LV function. EF is 72 %. No regional wall motion abnormality. Diastolic dysfunction is present. . Trivial mitral valve regurgitation. Measurements: Chambers Valvular Assessment AV/MV Valvular Assessment TV/PV Normal Normal Normal Name Value Range Name Value Range Name Value Range Ao Altagracia (MM): 3.0 cm (2.2 cm-3.7 AV Vmax: 1.26 m/s (1 m/s-1.7 PV Vmax: 0.84 m/s (0.6 m/s-0.9 cm) m/s) m/s) IVSd (2D): 0.8 cm (0.6 cm-1.1 AV maxP mmHg ( - ) PV PGmax: 3 mmHg ( - ) cm) LVOT Vmax: 0.76 m/s (0.7 m/s-1.1 LVDd (2D): 4.4 cm (3.9 cm-5.3 m/s) cm) MV E Vmax: 0.91 m/s ( - ) LVDs (2D): 2.6 cm (2.1 cm-4 MV A Vmax: 0.61 m/s ( - ) cm) MV E/A: 1.49 ( - ) LVPWd (2D): 1.1 cm ( - ) LVEF (2D): 72 (>=54 %) Continued Measurements: Chambers Valvular Assessment AV/MV Name Value Name Value LADs: 2.9 cm MV E' Septal: 0.05 m/s LADs Lon.2 cm MV E/E' Septal: 17.60 LA Area: 19.2 cm2 Patient: ZANE WHITE Study Date: 03/18/2018 Page 1 of 2 04:31 PM LA Volume: 69 ml LA Volume Index: 40.8 ml/m2 Findings: Left Ventricle: Normal size left ventricle. No LV hypertrophy. Normal global systolic LV function. EF is 72 %. No regional wall motion abnormality. Diastolic dysfunction is present. . Right Ventricle: Normal size right ventricle. Left Atrium: The left atrium is normal in size. Right Atrium: The right atrium is normal in size. Mitral Valve: The mitral valve is normal in appearance and function. Trivial mitral valve regurgitation. Aortic Valve: The aortic valve is normal in appearance and function. Tricuspid Valve: The tricuspid valve is normal in appearance and function. Pulmonic Valve: The pulmonic valve is normal in appearance and function. Aorta: The aorta is normal. Pericardium: No pericardial effusion. (No Signature Object) Patient: ZANE WHITE Study Date: 03/18/2018 Page 2 of 2 04:31 PM D:_[id number]
--- NOTE | 2018-03-19 10:23 | ASMTCMCOM ---
CM Note CM Note Notes: 03/19/2018 Case Management Note Pt transfer to ICU after open heart surgery. Case Management d/c poc: return to [place]. Date Signed: 03/19/2018 10:22 AM Electronically Signed By:Shaina Banda RN
[2018-03-19] MEDS ORDERED: MINERAL OIL 10 ML VIAL ONE (11:13)
[2018-03-19] MEDS ORDERED: fentaNYL 100 MCG/2 ML INJ ONE ×3 (11:39→12:45)
[2018-03-19] MEDS ORDERED: PHENYLEPHRINE HCL 100 MCG/ML SYR ONE ×2 (11:56→12:21)
[2018-03-19] MEDS ORDERED: ePHEDrine SULFATE 25 MG/5 ML SYR ONE (12:21)
[2018-03-19] MEDS ORDERED: METOCLOPRAMIDE 10 MG/2 ML VIAL IVP PRN (12:25)
[2018-03-19] MEDS ORDERED: LACTULOSE 20 GM/30 ML UDCUP PO PRN (12:25)
[2018-03-19] MEDS ORDERED: CEPACOL LOZENGE PO PRN (12:25)
[2018-03-19] MEDS ORDERED: MEPERIDINE 25 MG/0.5 ML AMP IVP PRN (12:25)
[2018-03-19] MEDS ORDERED: POTASSIUM Cl (KCl) 50 ML IV PRN (12:25)
[2018-03-19] MEDS ORDERED: MAGNESIUM HYDROXIDE 30 ML UDCUP PO PRN (12:25)
[2018-03-19] MEDS ORDERED: D50W 25 GM/50 ML SYR IVP PRN (12:25)
[2018-03-19] MEDS ORDERED: BISACODYL 10 MG SUPP PR PRN (12:25)
[2018-03-19] MEDS ORDERED: POLYETHYLENE GLYCOL 3350 17 GM PKT PO PRN (12:25)
[2018-03-19] MEDS ORDERED: PANTOPRAZOLE SODIUM 40 MG VIAL IVP ONE (12:25)
[2018-03-19] MEDS ORDERED: niCARdipine/NACL 200 ML IV PRN (12:25)
[2018-03-19] MEDS ORDERED: SODIUM CL NASAL 45 ML BTL EACHNARE PRN (12:25)
[2018-03-19] MEDS ORDERED: ACETAMINOPHEN 650 MG SUPP PR PRN (12:25)
[2018-03-19] MEDS ORDERED: NS 1,000 ML IV SCH (12:30)
[2018-03-19] MEDS ORDERED: INSULIN REGULAR HUMAN 100 UNIT in NS 100 ML IV SCH (12:30)
[2018-03-19] MEDS: fentaNYL 100 MCG/2 ML INJ IVP PRN ×3 (12:45→17:30)
--- NOTE | 2018-03-19 12:59 | GOP ---
DATE OF OPERATION: 03/19/2018 SURGEON: Delta Mack DO SALES ORDER CLERK: Scott. ANESTHESIOLOGIST: Wes. PREOPERATIVE DIAGNOSIS: Unstable angina pectoris. POSTOPERATIVE DIAGNOSIS: Unstable angina pectoris. PROCEDURE PERFORMED: 1. Coronary artery bypass grafting x3 with the left internal mammary artery to the distal left anter ior descending, saphenous vein graft to the lateral circumflex, and saphenous vein graft to the right coronary artery. 2. Ligation of the left atrial appendage. 3. Pulmonary vein ablation. FINDINGS: Patient presented with unstable angina pectoris, underwent diagnostic left heart catheteri zation. Was noted to have severe 3-vessel disease, not easily amenable to PCI. She was referred for surgical intervention. She also has a history of paroxysmal atrial fibrillation. DESCRIPTION OF PROCEDURE: She was consented for surgery and brought to the operating room, intubated . Monitoring lines were placed. She was prepped and draped in a sterile classical manner. Sternoto my was performed. The mammary was harvested. Vein was harvested endoscopically by KIMBERLY Park. Sh e was then heparinized, cannulated. Bypass was begun, and cardioplegic arrest was obtained with ante grade cardioplegia, topical hypothermia, and systemic cooling. All distals and proximals were perfor med with a cross-clamp on. It should be noted that the RCA was a 2.3 mm vessel in the main right mirela or to the crux with heavy posterior plaque. The LAD was a 2 mm vessel with minimal distal plaque. T he circumflex was a 3.6 mm heavily plaqued, but large vessel. The conduits were excellent. The aort a was without thickening or calcification. We also doubly ligated the left atrial appendage. We per formed PVI on both pulmonary veins, left and right, for a history of paroxysmal atrial fibrillation. The cross-clamp was removed with suction on the ascending aortic vent. Spontaneous cardiac activity was noted to resume. The patient was rewarmed, weaned from bypass. Heparin was reversed with prota mine. Cannula was removed and oversewn. 4 pacing wires, 1 left pleural, 1 mediastinal drain was giuseppe earlene. The thymic fat and pericardium were closed. Chest was closed in standard fashion. Patient was returned to ICU in stable condition. /[id number]/MODL
[2018-03-19] MEDS: LISINOPRIL 5 MG TAB PO SCH (13:08)
[2018-03-19] MEDS: ASPIRIN 325 MG TAB PO SCH (13:08)
[2018-03-19] MEDS: HEPARIN 5,000 UNIT/0.5 ML INJ SC SCH (13:08)
[2018-03-19] MEDS: METOPROLOL TARTRATE 50 MG TAB PO SCH (13:09)
[2018-03-19] MEDS ORDERED: SODIUM BICARBONATE 50 MEQ/50 ML SYR ONE (14:01)
[2018-03-19] MEDS ORDERED: SODIUM BICARBONATE 50 MEQ/50 ML SYR IVP ONE (14:15)
[2018-03-19] MEDS: ALBUMIN 5% 250 ML IV PRN ×2 (15:44→17:32)
--- NOTE | 2018-03-19 15:55 | GHP ---
PULMONARY/CRITICAL CARE CONSULTATION DATE OF ADMISSION: 03/18/2018 REFERRING PHYSICIAN: Delta Mack DO REASON FOR REFERRAL: Evaluation and management of respiratory failure and history of smoking, possib le COPD. HISTORY OF PRESENT ILLNESS: The patient is a 72-year-old woman with a history of coronary artery dis ease, status post stenting in 2002. She also has atrial fibrillation and hypertension. She was admi tted to the hospital 2 days ago after presenting with several hours of waxing and waning chest pain t hat improved with sublingual nitroglycerin. She had a coronary coronary angiogram, which demonstrate d 3-vessel coronary artery disease. She was referred to Dr. Mack who recommended a coronary artery bypass grafting. This was performed today and the patient has had an unremarkable intraoperative cou rse. She received 1 unit of packed red blood cells. She has returned to the intensive care unit int ubated. She is starting to wake up. PAST MEDICAL HISTORY: 1. Atrial fibrillation. 2. History of stroke. 3. Hypertension. 4. Hyperlipidemia. MEDICATIONS: At the time of admission include amlodipine, guaifenesin, metoprolol, aspirin, lisinopr il, Claritin, and Advair. ALLERGIES: Include olanzapine, penicillins, theophylline. SOCIAL HISTORY: The patient is a current longstanding smoker. 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 FAMILY HISTORY: Unremarkable. REVIEW OF SYSTEMS: Unobtainable. PHYSICAL EXAMINATION: GENERAL: The patient is intubated, sedated, but starting to follow some simpl e commands. VITAL SIGNS: Blood pressure is 113/56, with a heart rate of 95. She is afebrile. Oxyg en saturations are 97% on 50% oxygen. HEENT: Normocephalic and atraumatic. No icterus. NECK: No JVD. Trachea is midline. CHEST: Clear to auscultation. CARDIAC: Regular rate and rhythm without murmur. ABDOMEN: Soft, nontender. Bowel sounds are present. EXTREMITIES: No clubbing, cyanosis, or edema. NEURO: The patient is somnolent, but does awaken to stimulation. She moves all extremiti es. LABORATORY/IMAGING: A chemistry group is normal with the exception of a mildly elevated glucose at 1 45. Hemoglobin is 9.9, down from 12.1 at admission. Arterial blood gas intraoperatively showed a pH of 7.29 with a pO2 of 148, a CO2 of 41, and a bicarbonate of 21 on a respiratory rate of 12 with a t idal volume of 500, 100% oxygen with PEEP of 5. Chest x-ray shows increased infiltrates when compared to some interstitial infiltrate seen at admissi on. The endotracheal tube is in appropriate position. Images reviewed by me. ASSESSMENT: 1. Status post coronary artery bypass graft. The patient had triple-vessel disease and presented wi th unstable angina. She had an unremarkable intraoperative course. 2. Atrial fibrillation. The patient had a Roman-Maze procedure to reduce the recurrence of atrial fib rillation. 3. History of tobacco use. The patient likely has a component of chronic obstructive pulmonary dise ase. She is on Advair, but I do not have any history to confirm a diagnosis of chronic obstructive p ulmonary disease. Currently, she is ventilating and oxygenating well. RECOMMENDATIONS: 1. I think the patient is ready to wean to be extubated. We will check weaning parameters and extub ate if she meets criteria. 2. Continue Advair. Albuterol will be used p.r.n. /[id number]/MODL
[2018-03-19] MEDS: VANCOMYCIN HCL/NORMAL SALINE 250 ML IV SCH (20:53)
[2018-03-19] MEDS: traMADol 50 MG TAB PO PRN (21:52)
[2018-03-20] MEDS: traMADol 50 MG TAB PO PRN ×5 (03:21→23:37)
[2018-03-20 04:28] LABS: INR 1.04 (0.83-1.16); PROTIME(PATIENT) 13.8 SEC (12.0-15.0)
[2018-03-20 04:35] LABS: PLATELET COUNT 148 10^3/uL (150-400)
--- NOTE | 2018-03-20 06:55 | SOAPPROG ---
SOAP Progress Note Assessment/Plan: Assessment: POD#1 urgent CABGx3 (OSUNA-LAD, SV-LCX, SV-RCA), EVH LLE, pulmonary vein isolation w bipolar RF, suture ligation of left atrial appendage Sx severe CAD/ISR RCA with preserved LV systolic fx - Fully revascularized with CABG. Stable early postop course. No vasoactive support. No dysrhythmias. No sig volume overload. Secondary prevention with ASA, BB, and statin when appropriate. PAF - [id number] score of 6, refusing anticoagulation in the past. Post PVI rhythm sinus. AF prophylaxis with BB, uptitrated as tolerated. Antithrombotic prophylaxis with ASA alone if rhythm stable. Current light smoker - 1/2 pk weekly last few yrs. CXR c/w ILD. Extubated without incident. Relatively high suppl O2 needs exacerbated by grogginess/ hypoventilation. Pulm following. Duonebs, mucolytics, pulm physiotherapy prn. Acute expected blood loss anemia - Preop H/H . Surgical losses repleted with 1u PRBC. No evidence active bleeding. VTE prophylaxis with SQ hep/SCDs. HTN - Controlled on combination therapy. Preferential use of BB postop. Reintro of home regimen as tolerated. Plan: Routine POD#1 orders re. wires, lines, drains, orals and mobility. Lasix 20 mg IV x 1. Start metoprolol 12.5 mg BID tonight. Minimize narcs. Tx to PCU later today if suppl O2 req < 6lpm. 03/20/18 06:49 Subjective: Sedated. Comfortable at rest. Hurts to move or take a deep breath. Thirsty. No nausea or dizziness. Objective: Vital Signs Temp Pulse Resp BP Pulse Ox 36.7 C 83 20 101/46 L 91 L 03/20/18 04:00 03/20/18 06:00 03/20/18 06:00 03/20/18 06:17 03/20/18 06:00 Laboratory Results 03/20/18 04:00 03/20/18 04:00 03/19/18 03/20/18 03/21/18 05:59 05:59 05:59 Intake Total 900 1485.5 Output Total 1803 Balance 900 -317.5 PT 13.8 SEC (12.0-15.0) 03/20/18 04:00 INR 1.04 (0.83-1.16) 03/20/18 04:00 Holding SR 80s. MAPs 60s-70s d/t low DBP. 6lpm suppl O2 req. Current CVP 14. CXR -> no PTX, interval decrease in interstitial infiltrates, RLL and left mid lung atelectasis. No sig CTOP. Labs as expected. Physical Exam - Physical Exam General Appearance: alert (when engaged), no apparent distress Respiratory: decreased breath sounds (bases), other (blakes x 2 y-d to pleurovac , serosang drainage, no air leak) Cardiac/Chest: regular rate, rhythm, other (Sternotomy CDI. A&V wires intact.) Abdomen: non-tender, soft Skin: warm/dry Extremities: swelling (1+ gen), other (LLE leg wrap intact) ICD10 Worksheet Patient Problems: Problems Problem Status Onset Acute blood loss anemia Acute CAD, multiple vessel Acute Chest pain Acute S/P CABG x 3 Acute ~03/19/18 Status post circumferential ablation of pulmonary vein Acute ~03/19/18 chronic disease mgmt/transitional care Acute Acute chest pain Acute Atrial fibrillation with RVR Acute
[2018-03-20] MEDS: HEPARIN 5,000 UNIT/0.5 ML INJ SC SCH ×3 (07:53→21:53)
[2018-03-20] MEDS: FLUTICASONE/SALMETER 250/50MCG DISKUS IH SCH ×2 (08:05→20:20)
[2018-03-20] MEDS: PANTOPRAZOLE SODIUM 40 MG TAB PO SCH (08:13)
[2018-03-20] MEDS: MUPIROCIN 2% 22 GM OINT NS SCH ×2 (08:19→21:09)
[2018-03-20] MEDS ORDERED: FUROSEMIDE 20 MG/2 ML VIAL IVP ONE (08:45)
[2018-03-20] MEDS ORDERED: ASPIRIN EC 325 MG TAB PO ONE (08:58)
[2018-03-20] MEDS ORDERED: ASPIRIN 81 MG CHEWABLE TAB TUBE PRN (09:00)
[2018-03-20] MEDS ORDERED: METOPROLOL TARTRATE 25 MG TAB PO SCH (09:00)
[2018-03-20] MEDS: VANCOMYCIN HCL/NORMAL SALINE 250 ML IV SCH ×2 (09:07→21:01)
[2018-03-20] MEDS: ASPIRIN 325 MG TAB PO SCH (09:24)
--- NOTE | 2018-03-20 10:20 | POSTANESTH ---
Post Anesthetic Evaluation Cardiovascular Status: Normal, Stable Respiratory Status: Normal, Stable Level of Consciousness/Mental Status: Can Participate in Eval Pain Control: Adequate, Prn Tx Ordered Nausea/Vomiting Control: Adequate, Prn Tx Ordered Complications Possibly Related to Anesthesia: None Noted
--- NOTE | 2018-03-20 10:52 | PDINTPN ---
Technical Service Rep Progress Note Assessment/Plan: Assessment: S/P CABG x 3: Doing well post-op. Probable COPD: Currently smoking at time of admission. Possible ILD: Very mild peripheral mid-upper lung pattern seen on CXR November 2016, more prominent on admission CXR (although this could have been interstitial fluid). On high-flow humidified oxygen due to hypoxemia Plan: Agree with Lasix. Continue Advair, nebs. Titrate oxygen down as tolerated. 03/20/18 12:27 Subjective: Feels OK, denies pain. Fair appetite. Denies dyspnea. Gets worn out easily. Objective: Vital Signs Temp Pulse Resp BP Pulse Ox 36.2 C 87 22 H 108/31 L 97 03/20/18 08:00 03/20/18 10:00 03/20/18 10:00 03/20/18 10:00 03/20/18 10:00 Laboratory Results 03/20/18 04:00 03/20/18 04:00 03/19/18 03/20/18 03/21/18 05:59 05:59 05:59 Intake Total 900 1485.5 Output Total 1803 135 Balance 900 -317.5 -135 PT 13.8 SEC (12.0-15.0) 03/20/18 04:00 INR 1.04 (0.83-1.16) 03/20/18 04:00 Physical Exam - Physical Exam General Appearance: alert, no apparent distress EENT: normal ENT inspection Neck: normal inspection Respiratory: crackles Cardiac/Chest: regular rate, rhythm, No edema Abdomen: normal bowel sounds, non-tender Skin: normal color, warm/dry Extremities: normal inspection Neuro/Psych: alert, normal mood/affect, oriented x 3 ICD10 Worksheet Patient Problems: Problems Problem Status Onset Acute blood loss anemia Acute CAD, multiple vessel Acute Chest pain Acute S/P CABG x 3 Acute ~03/19/18 Status post circumferential ablation of pulmonary vein Acute ~03/19/18 chronic disease mgmt/transitional care Acute Acute chest pain Acute Atrial fibrillation with RVR Acute
[2018-03-20] MEDS ORDERED: KETOROLAC 15 MG/1 ML SDV ONE (13:00)
[2018-03-20] MEDS ORDERED: KETOROLAC 15 MG/1 ML SDV IVP ONE (13:15)
[2018-03-20] MEDS: METOPROLOL TARTRATE 25 MG TAB PO SCH (21:08)
[2018-03-21] MEDS: HEPARIN 5,000 UNIT/0.5 ML INJ SC SCH ×3 (05:54→20:51)
[2018-03-21] MEDS: traMADol 50 MG TAB PO PRN (05:54)
--- NOTE | 2018-03-21 06:12 | SOAPPROG ---
SOAP Progress Note Assessment/Plan: POD#2: Urgent CABGx3 (OSUNA-LAD, SV-LCX, SV-RCA), EVH LLE, pulmonary vein isolation w bipolar RF, suture ligation of left atrial appendage Sx severe CAD/ISR RCA with preserved LV systolic fx s/p CABGx3 - Secondary prevention with ASA, BB, and statin when appropriate - Tubes and wires removed PAF s/p PVI ablation - [id number] score of 6 - h/o of refusing anticoagulation in the past, continue ASA - AF prophylaxis with BB and amiodarone Post-op respiratory insufficiency with h/o current tobacco abuse - Wean high-flow as tolerated - Further mgmt as per pulmonology Acute blood loss anemia on chronic anemia (pre-op H/H ) - s/p 1U PRBC VTE prophylaxis - SQ hep/SCDs. Subjective: Pt c/o of pain near CTs. Denies SOB. Would like to get back in bed as uncomfortable in chair. Objective: Vital Signs Temp Pulse Resp BP Pulse Ox 36.4 C 90 24 H 112/49 L 95 03/20/18 19:38 03/21/18 04:00 03/21/18 04:00 03/21/18 04:00 03/21/18 04:00 Laboratory Results 03/20/18 04:00 03/20/18 12:30 03/20/18 03/21/18 03/22/18 05:59 05:59 05:59 Intake Total 1485.5 1226 Output Total 1803 745 Balance -317.5 481 PT 13.8 SEC (12.0-15.0) 03/20/18 04:00 INR 1.04 (0.83-1.16) 03/20/18 04:00 Physical Exam - Physical Exam General Appearance: WD/WN, alert, no apparent distress EENT: No scleral icterus (R), No scleral icterus (L) Neck: normal inspection Respiratory: No respiratory distress Cardiac/Chest: regular rate, rhythm Abdomen: non-tender, soft, No distended Skin: normal color, warm/dry Extremities: No pedal edema Neuro/Psych: no motor/sensory deficits, alert, normal mood/affect, oriented x 3 ICD10 Worksheet Patient Problems: Problems Problem Status Onset Acute blood loss anemia Acute CAD, multiple vessel Acute Chest pain Acute S/P CABG x 3 Acute ~03/19/18 Status post circumferential ablation of pulmonary vein Acute ~03/19/18 chronic disease mgmt/transitional care Acute Acute chest pain Acute Atrial fibrillation with RVR Acute
[2018-03-21] MEDS ORDERED: AMIODARONE HCL 100 ML IV ONE (07:27)
[2018-03-21] MEDS ORDERED: POTASSIUM CL 20 MEQ TAB PO ONE (07:42)
[2018-03-21] MEDS ORDERED: FUROSEMIDE 40 MG/4 ML VIAL IVP ONE (07:42)
[2018-03-21] MEDS: FLUTICASONE/SALMETER 250/50MCG DISKUS IH SCH ×2 (08:14→19:52)
--- NOTE | 2018-03-21 08:38 | CPEKG ---
Test Reason : OPEN Blood Pressure : / mmHG Vent. Rate : 099 BPM Atrial Rate : 099 BPM P-R Int : 150 ms QRS Dur : 097 ms QT Int : 383 ms P-R-T Axes : 082 011 084 degrees QTc Int : 492 ms Sinus rhythm Abnormal R-wave progression, early transition Minimal ST depression, anterior leads Borderline prolonged QT interval Confirmed by Godfrey Mccord ([id number]) on 03/21/2018 8:37:48 AM Referred By: Confirmed By:Godfrey Mccord
[2018-03-21] MEDS: AMIODARONE HCL 200 MG TAB PO SCH ×2 (08:52→20:50)
[2018-03-21] MEDS: PANTOPRAZOLE SODIUM 40 MG TAB PO SCH (08:52)
[2018-03-21] MEDS: MUPIROCIN 2% 22 GM OINT NS SCH (08:53)
[2018-03-21] MEDS: METOPROLOL TARTRATE 25 MG TAB PO SCH ×2 (08:53→20:50)
[2018-03-21] MEDS: ASPIRIN 325 MG TAB PO SCH (08:53)
[2018-03-21] MEDS ORDERED: PROTOCOL POTASSIUM 1 DOSE MISC PRN (11:44)
--- NOTE | 2018-03-21 14:01 | PDINTPN ---
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 PAF: Resolved with amiodarone Probable COPD: Currently smoking at time of admission. Possible ILD: Very mild peripheral mid-upper lung pattern seen on CXR November 2016, more prominent on admission CXR (although this could have been interstitial fluid). On high-flow humidified oxygen due to hypoxemia. FIO2 down a bit from 100% to 80%. CXR no better despite lasix (although no net diuresis) Plan: Agree with repeat Lasix. Continue Advair, nebs. Titrate oxygen down as tolerated. Increase activity. 03/21/18 14:04 Subjective: C/O back pain. Minimal cough. Dyspneic with exertion. Objective: Vital Signs Temp Pulse Resp BP Pulse Ox 36.4 C 82 24 H 105/48 L 95 03/21/18 12:00 03/21/18 12:00 03/21/18 12:00 03/21/18 12:00 03/21/18 12:00 Laboratory Results 03/21/18 07:10 03/21/18 06:20 03/20/18 03/21/18 03/22/18 05:59 05:59 05:59 Intake Total 1485.5 1676 200 Output Total 1803 1025 400 Balance -317.5 651 -200 PT 13.8 SEC (12.0-15.0) 03/20/18 04:00 INR 1.04 (0.83-1.16) 03/20/18 04:00 CXR: Persistent infiltrates/atelectasis, increased in right base. Images reviewed by me. Physical Exam - Physical Exam General Appearance: alert, no apparent distress EENT: normal ENT inspection Neck: normal inspection Respiratory: lungs clear, normal breath sounds Cardiac/Chest: regular rate, rhythm, edema Abdomen: normal bowel sounds, non-tender Skin: normal color, warm/dry Extremities: normal inspection Neuro/Psych: alert, normal mood/affect, oriented x 3 ICD10 Worksheet Patient Problems: Problems Problem Status Onset Acute blood loss anemia Acute CAD, multiple vessel Acute Chest pain Acute S/P CABG x 3 Acute ~03/19/18 Status post circumferential ablation of pulmonary vein Acute ~03/19/18 chronic disease mgmt/transitional care Acute Acute chest pain Acute Atrial fibrillation with RVR Acute
[2018-03-21] MEDS: HYDROCODONE/APAP 5/325 TAB PO PRN (20:50)
[2018-03-21] MEDS: SENNOSIDES/DOCUSATE SODIUM TAB PO SCH (20:54)
[2018-03-21] MEDS ORDERED: POTASSIUM Cl (KCl) 50 ML IV ONE (22:13)
[2018-03-22] MEDS: HYDROCODONE/APAP 5/325 TAB PO PRN ×3 (01:50→20:35)
[2018-03-22] MEDS: IPRATROPIUM/ALBUTEROL 3 ML DEYVIAL IH PRN (02:07)
--- NOTE | 2018-03-22 06:22 | SOAPPROG ---
SOAP Progress Note Assessment/Plan: POD#3: Urgent CABGx3 (OSUNA-LAD, SV-LCX, SV-RCA), EVH LLE, pulmonary vein isolation w bipolar RF, suture ligation of left atrial appendage Severe CAD/ISR RCA with preserved LV systolic fx s/p CABGx3 - Secondary prevention with ASA, BB, and statin PAF s/p PVI ablation - [id number] 6 - Eliquis started - AF prophylaxis with BB and amiodarone Acute pulmonary insufficiency with h/o current tobacco abuse - Wean O2 as tolerated - Further mgmt as per pulmonology Acute blood loss anemia on chronic anemia - 2 units PRBCs this AM - Monitor H/H VTE prophylaxis - SCDs/Eliquis Subjective: Feeling better this AM. Still hard to stand. Objective: Vital Signs Temp Pulse Resp BP Pulse Ox 36.9 C 85 17 108/41 L 91 L 03/21/18 20:00 03/22/18 04:00 03/22/18 04:00 03/22/18 04:00 03/22/18 04:00 Laboratory Results 03/22/18 04:45 03/22/18 04:45 03/21/18 03/22/18 03/23/18 05:59 05:59 05:59 Intake Total 1676 889 Output Total 1025 650 Balance 651 239 PT 13.8 SEC (12.0-15.0) 03/20/18 04:00 INR 1.04 (0.83-1.16) 03/20/18 04:00 Physical Exam - Physical Exam General Appearance: WD/WN, alert, no apparent distress EENT: No scleral icterus (R), No scleral icterus (L) Neck: normal inspection Respiratory: No respiratory distress Cardiac/Chest: regular rate, rhythm Abdomen: non-tender, soft, No distended Skin: normal color, warm/dry Extremities: No pedal edema Neuro/Psych: no motor/sensory deficits, alert, normal mood/affect, oriented x 3 ICD10 Worksheet Patient Problems: Problems Problem Status Onset Acute blood loss anemia Acute CAD, multiple vessel Acute Chest pain Acute S/P CABG x 3 Acute ~03/19/18 Status post circumferential ablation of pulmonary vein Acute ~03/19/18 chronic disease mgmt/transitional care Acute Acute chest pain Acute Atrial fibrillation with RVR Acute
[2018-03-22] MEDS: HEPARIN 5,000 UNIT/0.5 ML INJ SC SCH (06:41)
[2018-03-22] MEDS: FLUTICASONE/SALMETER 250/50MCG DISKUS IH SCH ×2 (08:02→19:47)
[2018-03-22] MEDS: ASPIRIN 81 MG CHEWABLE TAB PO SCH (09:12)
[2018-03-22] MEDS: METOPROLOL TARTRATE 25 MG TAB PO SCH (09:12)
[2018-03-22] MEDS: SENNOSIDES/DOCUSATE SODIUM TAB PO SCH ×2 (09:12→20:51)
[2018-03-22] MEDS: APIXABAN 2.5 MG TAB PO SCH ×2 (09:12→20:51)
[2018-03-22] MEDS: PANTOPRAZOLE SODIUM 40 MG TAB PO SCH (09:13)
[2018-03-22] MEDS: AMIODARONE HCL 200 MG TAB PO SCH (09:13)
--- NOTE | 2018-03-22 09:21 | ASMTCMCOM ---
CM Note CM Note Notes: Patient resides at [facility]. PT/OT are recommending SNF rehab. Patient will return to [facility] for her rehab there. CM will follow. Date Signed: 03/22/2018 09:20 AM Electronically Signed By:Natalee Quach LCSW
[2018-03-22] MEDS ORDERED: FUROSEMIDE 40 MG/4 ML VIAL IVP ONE ×2 (10:00→22:00)
--- NOTE | 2018-03-22 10:37 | PDINTPN ---
Test Baker Progress Note Assessment/Plan: Assessment: S/P CABG x 3: Doing well post-op. PAF: Resolved with amiodarone Probable COPD: Currently smoking at time of admission. Pulmonary infiltrates/possible ILD: Very mild peripheral mid-upper lung pattern seen on CXR November 2016, more prominent on admission CXR (although this could have been interstitial fluid). Now has worsening pulmonary infiltrates on CXR. I=O. Afebrile, WBC high but down slightly today. ? infiltrates are cardiogenic, acute pneumonia. Non-infectious pneumonitis, such as amiodarone pulmonary toxicity, less likely. On high-flow humidified oxygen due to hypoxemia. FIO2 remains high as 80-100%. Anemia: Getting PRBCs Plan: PRBCs/Lasix. Continue Advair, nebs. Probably will start empiric antibiotics. Follow CXR. 03/22/18 10:45 Subjective: Feels quite weak, fatigues easily with minimal exertion. C/O chest discomfort. Objective: Vital Signs Temp Pulse Resp BP Pulse Ox 36.8 C 101 H 89 H 101/44 L 89 L 03/22/18 08:00 03/22/18 08:02 03/22/18 08:02 03/22/18 08:00 03/22/18 08:00 Laboratory Results 03/22/18 04:45 03/22/18 04:45 03/21/18 03/22/18 03/23/18 05:59 05:59 05:59 Intake Total 1676 1129 Output Total 1025 1250 200 Balance 651 -121 -200 PT 13.8 SEC (12.0-15.0) 03/20/18 04:00 INR 1.04 (0.83-1.16) 03/20/18 04:00 CXR: Increased bilateral upper lobe infiltrates. Images reviewed by me. Physical Exam - Physical Exam General Appearance: alert, no apparent distress EENT: normal ENT inspection Neck: normal inspection Respiratory: lungs clear, normal breath sounds Cardiac/Chest: No edema Abdomen: normal bowel sounds, non-tender Skin: normal color Extremities: normal inspection Neuro/Psych: alert, normal mood/affect, oriented x 3 ICD10 Worksheet Patient Problems: Problems Problem Status Onset Acute blood loss anemia Acute CAD, multiple vessel Acute Chest pain Acute S/P CABG x 3 Acute ~03/19/18 Status post circumferential ablation of pulmonary vein Acute ~03/19/18 chronic disease mgmt/transitional care Acute Acute chest pain Acute Atrial fibrillation with RVR Acute
[2018-03-22] MEDS: VANCOMYCIN HCL/NORMAL SALINE 250 ML IV SCH (13:39)
[2018-03-22] MEDS ORDERED: POTASSIUM CL 10 MEQ TAB PO ONE (15:25)
[2018-03-22] MEDS ORDERED: METOPROLOL TARTRATE 25 MG TAB PO ONE (16:03)
[2018-03-22] MEDS: methylPREDNISolone SOD SUCC 125 MG/2 ML VIAL IVP SCH (20:41)
[2018-03-22] MEDS ORDERED: METOPROLOL TARTRATE 25 MG TAB PO SCH (21:00)
[2018-03-22] MEDS ORDERED: POTASSIUM CL 20 MEQ TAB ONE (21:08)
[2018-03-22] MEDS ORDERED: POTASSIUM Cl (KCl) 50 ML IV ONE (22:00)
[2018-03-23] MEDS: methylPREDNISolone SOD SUCC 125 MG/2 ML VIAL IVP SCH ×5 (00:14→23:00)
[2018-03-23] MEDS: POTASSIUM Cl (KCl) 50 ML IV SCH ×3 (04:25→06:30)
[2018-03-23] MEDS: HYDROCODONE/APAP 5/325 TAB PO PRN (06:27)
--- NOTE | 2018-03-23 07:11 | SOAPPROG ---
SOAP Progress Note Assessment/Plan: Assessment: POD#4: Urgent CABGx3 (OSUNA-LAD, SV-LCX, SV-RCA), EVH LLE, pulmonary vein isolation w bipolar RF, suture ligation of left atrial appendage Severe CAD/ISR RCA with preserved LV systolic fx s/p CABGx3 - Secondary prevention with ASA, BB, and statin. PAF s/p PVI ablation - Currently in SR 100-110's - [id number] 6 - On Eliquis - AF prophylaxis with BB. Amiodarone d/c'd to prevent further lung injury Acute pulmonary insufficiency/COPD with h/o current tobacco abuse - Down to 30L and 60% FiO2. Wean O2 as tolerated - Smoking cessation emphasized to patient. - Started on Levaquin and Solumedrol. On Advair and Duonebs prn - Further mgmt as per pulmonology Acute blood loss anemia on chronic anemia - H&H stable at 12.0/34.8 s/p 2 units PRBCs yesterday - Monitor H/H Hyperlipidemia - Patient reports that she does not tolerate Lipitor or Zocor. - Started Crestor today. Anxiety - Resumed home Xanax - Resumed home Melatonin for sleep VTE prophylaxis - SCDs/Eliquis Subjective: "I didn't sleep at all last night because I kept having to urinate." Patient reports good pain control. Reports having a somewhat productive cough of whitish/yellow sputum. Objective: Vital Signs Temp Pulse Resp BP Pulse Ox 36.7 C 110 H 24 H 138/89 H 90 L 03/23/18 04:00 03/23/18 04:00 03/23/18 04:00 03/23/18 04:00 03/23/18 04:00 Microbiology 03/22/18 11:30 Respiratory Panel (PCR) - Final Nasal, Sinus - Swab No Organism Detected Laboratory Results 03/23/18 04:00 03/23/18 04:00 03/22/18 03/23/18 03/24/18 05:59 05:59 05:59 Intake Total 1129 1268 Output Total 1255 8731 Balance -121 -4582 PT 13.8 SEC (12.0-15.0) 03/20/18 04:00 INR 1.04 (0.83-1.16) 03/20/18 04:00 Physical Exam - Physical Exam General Appearance: WD/WN, alert, no apparent distress EENT: normal ENT inspection Neck: supple Respiratory: lungs clear, decreased breath sounds (bases), other (No wheezing, rhonchi, rales. ) Cardiac/Chest: tachycardia, other (No murmurs, rubs, gallops. Sternum stable. Sternotomy c/d/i. ) Abdomen: normal bowel sounds, non-tender, soft Skin: normal color, warm/dry Extremities: other (Wam, mild lower extremity edema. Leg incision c/d/i. ) Neuro/Psych: alert, normal mood/affect, oriented x 3 ICD10 Worksheet Patient Problems: Problems Problem Status Onset Acute blood loss anemia Acute CAD, multiple vessel Acute Chest pain Acute S/P CABG x 3 Acute ~03/19/18 Status post circumferential ablation of pulmonary vein Acute ~03/19/18 chronic disease mgmt/transitional care Acute Acute chest pain Acute Atrial fibrillation with RVR Acute
[2018-03-23] MEDS: FLUTICASONE/SALMETER 250/50MCG DISKUS IH SCH ×2 (08:25→20:43)
[2018-03-23] MEDS ORDERED: METOPROLOL TARTRATE 25 MG TAB PO ONE (08:58)
[2018-03-23] MEDS: ASPIRIN 81 MG CHEWABLE TAB PO SCH (09:05)
[2018-03-23] MEDS: PANTOPRAZOLE SODIUM 40 MG TAB PO SCH (09:06)
[2018-03-23] MEDS: SENNOSIDES/DOCUSATE SODIUM TAB PO SCH ×2 (09:06→21:48)
[2018-03-23] MEDS: APIXABAN 2.5 MG TAB PO SCH ×2 (09:06→21:47)
--- NOTE | 2018-03-23 09:15 | PDCARCONS ---
Cardiology Consult Reason for Consult: Tachycardia, hypotension. Chief Complaint: I do not feel well. Requesting Physician: Dr. Renzo Mera. History of Present Illness: This is a 72-year-old female who has a previous cardiovascular history significant for known coronary artery disease with previous 2 vessel coronary artery bypass graft surgery in 2003, permanent atrial fibrillation, sick sinus syndrome with a previous single-chamber pacemaker implantation and hyperlipidemia. 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 Historically, her cardiovascular disease has been stable. She does have regular and routine interrogations of her pacemaker. She has occasional episodes of high ventricular rates sometimes lasting up to 9 min at a time. Typically these have been well tolerated and asymptomatic. As an outpatient her rates have been controlled with a combination of low-dose metoprolol and diltiazem. She takes warfarin for systemic anticoagulation. She was admitted through the emergency department last night. History Information - Allergies/Home Medication List Allergies/Adverse Reactions: olanzapine [From Zyprexa] Allergy (Unknown, Verified 03/18/18 00:38) Unknown Penicillins Allergy (Unknown, Verified 03/18/18 00:38) Unknown theophylline [Theophylline] Allergy (Unknown, Verified 03/18/18 00:38) Unknown amoxicillin Allergy (Verified 03/18/18 00:38) diphenhydramine HCl [From Benadryl] Allergy (Verified 03/18/18 00:38) morphine Allergy (Verified 03/19/18 08:42) Unknown ENVIRONMENTAL Allergy (Unknown, Uncoded 03/18/18 00:38) Unknown TB VAC Allergy (Uncoded 03/18/18 00:38) theodur Allergy (Uncoded 03/18/18 00:38) Home Medications: Acetaminophen [Tylenol ES 500 mg (*)] 1,000 mg PO TID PRN 11/13/16 [Last Taken 11/13/16 05:00] Metoprolol Tartrate [Lopressor 50 mg (*)] 50 mg PO BID 11/13/16 [Last Taken 02/22] amLODIPine BESYLATE [Norvasc 10 mg (*)] 10 mg PO DAILY 11/13/16 [Last Taken 02/22] guaiFENesin [Cough Syrup] 200 mg PO Q6HRS PRN 11/13/16 [Last Taken Unknown] Cholecalciferol Vit D3 [Vitamin D3 (*)] 50,000 unit PO Q30D 03/18/18 [Last Taken Unknown] Fluticasone/Salmeter 250/50Mcg [Advair 250/50 (*)] 1 puffs IH BID 03/18/18 [ Last Taken Unknown] Lisinopril [Zestril 2.5 mg (*)] 5 mg PO DAILY 03/18/18 [Last Taken Unknown] Loratadine [Claritin 10 mg] 10 mg PO DAILY PRN 03/18/18 [Last Taken Unknown] Past Medical History: - Social History Smoking Status: Current every day smoker Physical Exam Physical Exam: Temp Pulse Resp BP Pulse Ox 36.7 C 111 H 18 136/64 H 91 L 03/23/18 04:00 03/23/18 09:07 03/23/18 08:25 03/23/18 09:07 03/23/18 08:25 O2 (L/minute) 30 FIO2 (%) 60 Lab and Imaging 03/23/18 04:00 03/23/18 04:00 WBC 15.44 10^3/uL (3.80-9.50) H 03/22/18 04:45 RBC 2.29 10^6/uL (4.18-5.33) L 03/22/18 04:45 Hgb 12.0 g/dL (12.6-16.3) L 03/23/18 04:00 POC Hgb 8.8 gm/dL (12.6-16.3) L 03/20/18 00:09 Hct 34.8 % (38.0-47.0) L 03/23/18 04:00 POC Hct 26 % (38-47) L 03/20/18 00:09 MCV 95.6 fL (81.5-99.8) 03/22/18 04:45 MCH 32.3 pg (27.9-34.1) 03/22/18 04:45 MCHC 33.8 g/dL (32.4-36.7) 03/22/18 04:45 RDW 13.4 % (11.5-15.2) 03/22/18 04:45 Plt Count 160 10^3/uL (150-400) 03/22/18 04:45 MPV 9.6 fL (8.7-11.7) 03/20/18 04:00 Neut % (Auto) 84.2 % (39.3-74.2) H 03/20/18 04:00 Lymph % (Auto) 6.2 % (15.0-45.0) L 03/20/18 04:00 Levy % (Auto) 9.0 % (4.5-13.0) 03/20/18 04:00 Eos % (Auto) 0.0 % (0.6-7.6) L 03/20/18 04:00 Baso % (Auto) 0.1 % (0.3-1.7) L 03/20/18 04:00 Nucleat RBC Rel Count 0.0 % (0.0-0.2) 03/20/18 04:00 Absolute Neuts (auto) 12.75 10^3/uL (1.70-6.50) H 03/20/18 04:00 Absolute Lymphs (auto) 0.94 10^3/uL (1.00-3.00) L 03/20/18 04:00 Absolute Monos (auto) 1.37 10^3/uL (0.30-0.80) H 03/20/18 04:00 Absolute Eos (auto) 0.00 10^3/uL (0.03-0.40) L 03/20/18 04:00 Absolute Basos (auto) 0.01 10^3/uL (0.02-0.10) L 03/20/18 04:00 Absolute Nucleated RBC 0.00 10^3/uL (0-0.01) 03/20/18 04:00 Immature Gran % 0.5 % (0.0-1.1) 03/20/18 04:00 Immature Gran # 0.08 10^3/uL (0.00-0.10) 03/20/18 04:00 PT 13.8 SEC (12.0-15.0) 03/20/18 04:00 INR 1.04 (0.83-1.16) 03/20/18 04:00 Puncture Site ARTERIAL LINE 03/19/18 13:05 Patient Temperature 36.0 DEGREES 03/19/18 13:05 pCO2 41 mmHg (34-38) H 03/19/18 13:05 pO2 148 mmHg (65-75) H 03/19/18 13:05 Total CO2 21 mEq/L (23-27) L 03/19/18 13:05 ABG pH 7.29 (7.35-7.45) L 03/19/18 13:05 ABG PO2/FiO2 Ratio 147 RATIO 03/19/18 13:05 ABG HCO3 19 mEq/L (22-26) L 03/19/18 13:05 ABG O2 Saturation 99 % (92-95) H 03/19/18 13:05 ABG Base Excess -6.8 mEq/L (-2.5-2.5) L 03/19/18 13:05 O2 Concentration % 100 % (0-100) 03/19/18 13:05 Actual Respiration Rate 12 03/19/18 13:05 Set Respiration Rate 12 03/19/18 13:05 Tidal Volume 500 03/19/18 13:05 End Tidal CO2 42 03/19/18 13:05 PEEP 5 03/19/18 13:05 Pressure Support 7 03/19/18 13:05 POC Sodium 142 mEq/L (135-145) 03/20/18 00:09 Sodium 133 mEq/L (135-145) L 03/22/18 04:45 POC Potassium 4.3 mEq/L (3.3-5.0) 03/20/18 00:09 Potassium 3.6 mEq/L (3.3-5.0) 03/23/18 04:00 POC Chloride 107 mEq/L (97-110) 03/20/18 00:09 Chloride 101 mEq/L (97-110) 03/22/18 04:45 Carbon Dioxide 23 mEq/l (22-31) 03/22/18 04:45 Anion Gap 9 mEq/L (8-16) 03/22/18 04:45 POC BUN 18 mg/dL (7-23) 03/20/18 00:09 BUN 24 mg/dL (7-23) H 03/22/18 04:45 Creatinine 1.0 mg/dL (0.6-1.0) 03/22/18 04:45 POC Creatinine 0.9 mg/dL (0.6-1.0) 03/20/18 00:09 Estimated GFR 54 03/22/18 04:45 Glucose 119 mg/dL (70-100) H 03/22/18 04:45 POC Glucose 141 mg/dL (70-100) H 03/20/18 06:45 Calcium 7.7 mg/dL (8.5-10.4) L 03/22/18 04:45 Phosphorus 5.6 mg/dL (2.5-4.5) H 03/18/18 04:25 Magnesium 1.8 mg/dL (1.6-2.3) 03/18/18 18:43 POC Troponin I 0.01 ng/mL (0.00-0.08) 03/17/18 23:54 Troponin I 0.033 ng/mL (0.000-0.034) 03/18/18 04:25 Patient ABO/Rh O NEGATIVE 03/22/18 07:24 Antibody Screen NEGATIVE 03/22/18 07:24 Crossmatch IS Only See Detail 03/22/18 07:24 Bld Prod Verbal Order YES 03/18/18 18:43
[2018-03-23] MEDS ORDERED: POTASSIUM Cl (KCl) 50 ML IV ONE (10:56)
[2018-03-23] MEDS ORDERED: ONDANSETRON 4 MG/2 ML VIAL ONE (11:25)
[2018-03-23] MEDS: OXYCODONE/APAP 5/325 TAB PO PRN ×2 (11:31→15:19)
--- NOTE | 2018-03-23 11:39 | PDINTPN ---
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 Probable COPD: Currently smoking at time of admission. Pulmonary infiltrates/possible ILD: Very mild peripheral mid-upper lung pattern seen on CXR November 2016, more prominent on admission CXR (although this could have been interstitial fluid). Now has worsening pulmonary infiltrates on CXR. I=O. Afebrile, WBC high but stable ? infiltrates are cardiogenic, acute pneumonia. Non-infectious pneumonitis, such as amiodarone pulmonary toxicity, less likely. Started Levaquin, Vanco, Solumedrol 03/22. On high-flow humidified oxygen due to hypoxemia. FIO2 down a bit to 50-80% today. Anemia: Improved with PRBCs Plan: PRBCs/Lasix. Continue Advair, nebs. Continue empiric antibiotics/ steroids. Follow CXR. Keep in ICU. 03/23/18 11:41 Subjective: Slept poorly, unable to state why. Quite fatigued/dyspneic after short exertion. Objective: Vital Signs Temp Pulse Resp BP Pulse Ox 36.7 C 111 H 18 136/64 H 91 L 03/23/18 04:00 03/23/18 09:07 03/23/18 08:25 03/23/18 09:07 03/23/18 08:25 Microbiology 03/22/18 11:30 Respiratory Panel (PCR) - Final Nasal, Sinus - Swab No Organism Detected Laboratory Results 03/23/18 04:00 03/23/18 04:00 03/22/18 03/23/18 03/24/18 05:59 05:59 05:59 Intake Total 1129 1268 Output Total 1250 5850 180 Balance -121 -4582 -180 PT 13.8 SEC (12.0-15.0) 03/20/18 04:00 INR 1.04 (0.83-1.16) 03/20/18 04:00 CXR: Persistent bilateral infiltrates. Images reviewed by me. Respiratory panel: No organism detected. Blood Cx negative. Physical Exam - Physical Exam General Appearance: alert EENT: normal ENT inspection Neck: normal inspection Respiratory: crackles Cardiac/Chest: regular rate, rhythm, edema (trace) Abdomen: normal bowel sounds, non-tender Skin: normal color, warm/dry Extremities: normal inspection Neuro/Psych: alert, No motor weakness ICD10 Worksheet Patient Problems: Problems Problem Status Onset Acute blood loss anemia Acute CAD, multiple vessel Acute Chest pain Acute S/P CABG x 3 Acute ~03/19/18 Status post circumferential ablation of pulmonary vein Acute ~03/19/18 chronic disease mgmt/transitional care Acute Acute chest pain Acute Atrial fibrillation with RVR Acute
[2018-03-23] MEDS: VANCOMYCIN HCL/NORMAL SALINE 250 ML IV SCH (14:44)
[2018-03-23] MEDS: IPRATROPIUM/ALBUTEROL 3 ML DEYVIAL IH PRN (20:49)
[2018-03-23] MEDS: ALPRAZolam 0.5 MG TAB PO PRN (21:47)
[2018-03-23] MEDS: METOPROLOL TARTRATE 50 MG TAB PO SCH (21:47)
[2018-03-23] MEDS: MELATONIN 3 MG TAB PO SCH (21:47)
[2018-03-23] MEDS: ROSUVASTATIN CALCIUM 10 MG TAB PO SCH (23:00)
[2018-03-23] MEDS ORDERED: POTASSIUM CL 10 MEQ TAB PO ONE (23:34)
[2018-03-24] MEDS: IPRATROPIUM/ALBUTEROL 3 ML DEYVIAL IH PRN (05:18)
[2018-03-24] MEDS: methylPREDNISolone SOD SUCC 125 MG/2 ML VIAL IVP SCH ×2 (06:00→21:42)
[2018-03-24] MEDS: ACETAMINOPHEN 500 MG TAB PO PRN ×2 (06:41→21:46)
[2018-03-24] MEDS: ALPRAZolam 0.5 MG TAB PO PRN (06:41)
--- NOTE | 2018-03-24 07:43 | SOAPPROG ---
SOAP Progress Note Assessment/Plan: Assessment: POD#5: Urgent CABGx3 (OSUNA-LAD, SV-LCX, SV-RCA), EVH LLE, pulmonary vein isolation w bipolar RF, suture ligation of left atrial appendage Severe CAD/ISR RCA with preserved LV systolic fx s/p CABGx3 - Secondary prevention with ASA, BB, and statin. PAF s/p PVI ablation - Currently in SR 80-100's - [id number] 6 - On Eliquis - AF prophylaxis with BB. Amiodarone d/c'd to prevent further lung injury. Acute pulmonary insufficiency/COPD with h/o current tobacco abuse - Down to 8L. Wean O2 as tolerated - Smoking cessation emphasized to patient. - On Levaquin, Solumedrol, Advair and Duonebs prn. - Mgmt as per pulmonology. Acute blood loss anemia on chronic anemia - H&H stable at 12.0/34.8 s/p 2 units PRBCs. Hyperlipidemia - Patient reports that she does not tolerate Lipitor or Zocor. - On Crestor. Anxiety - On home Xanax prn. - Continue Melatonin for sleep. VTE prophylaxis - SCDs/Eliquis Subjective: Patient reports good pain control and happy about getting good sleep last night. Objective: Vital Signs Temp Pulse Resp BP Pulse Ox 36.2 C 93 18 133/75 H 94 03/23/18 20:00 03/24/18 05:18 03/24/18 05:18 03/24/18 04:00 03/24/18 05:18 Laboratory Results 03/23/18 04:00 03/24/18 05:20 03/23/18 03/24/18 03/25/18 05:59 05:59 05:59 Intake Total 1268 1165 Output Total 5850 930 Balance -4582 235 PT 13.8 SEC (12.0-15.0) 03/20/18 04:00 INR 1.04 (0.83-1.16) 03/20/18 04:00 Physical Exam - Physical Exam General Appearance: WD/WN, alert, no apparent distress Neck: supple Respiratory: decreased breath sounds (bases), crackles (right anterior lung field), other (No wheezing or rales. ) Cardiac/Chest: tachycardia, other (No murmurs, rubs, gallops. Sternum stable. Sternotomy c/d/i. ) Abdomen: normal bowel sounds, non-tender, soft Skin: normal color, warm/dry Extremities: other (Wam, mild lower extremity edema. Leg incision c/d/i. ) Neuro/Psych: alert, normal mood/affect, oriented x 3 ICD10 Worksheet Patient Problems: Problems Problem Status Onset Acute blood loss anemia Acute CAD, multiple vessel Acute Chest pain Acute S/P CABG x 3 Acute ~03/19/18 Status post circumferential ablation of pulmonary vein Acute ~03/19/18 chronic disease mgmt/transitional care Acute Acute chest pain Acute Atrial fibrillation with RVR Acute
[2018-03-24] MEDS ORDERED: FUROSEMIDE 40 MG/4 ML VIAL IVP ONE (09:16)
[2018-03-24] MEDS ORDERED: POTASSIUM CL 20 MEQ TAB PO ONE (09:17)
[2018-03-24] MEDS: FLUTICASONE/SALMETER 250/50MCG DISKUS IH SCH ×2 (09:31→20:03)
[2018-03-24] MEDS: SENNOSIDES/DOCUSATE SODIUM TAB PO SCH ×2 (09:33→21:46)
[2018-03-24] MEDS: ROSUVASTATIN CALCIUM 10 MG TAB PO SCH (09:33)
[2018-03-24] MEDS: PANTOPRAZOLE SODIUM 40 MG TAB PO SCH (09:34)
[2018-03-24] MEDS: APIXABAN 2.5 MG TAB PO SCH ×2 (09:34→21:46)
[2018-03-24] MEDS: ASPIRIN 81 MG CHEWABLE TAB PO SCH (09:34)
[2018-03-24] MEDS: METOPROLOL TARTRATE 50 MG TAB PO SCH ×2 (09:41→21:14)
--- NOTE | 2018-03-24 11:39 | PDINTPN ---
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 Probable COPD: Currently smoking at time of admission. Pulmonary infiltrates/possible ILD: Very mild peripheral mid-upper lung pattern seen on CXR November 2016, more prominent on admission CXR (although this could have been interstitial fluid). Now has worsening pulmonary infiltrates on CXR. I=O. Afebrile, WBC high but stable ? infiltrates are cardiogenic, acute pneumonia. Non-infectious pneumonitis, such as amiodarone pulmonary toxicity, less likely. Started Levaquin, Vanco, Solumedrol 03/22. On high-flow humidified oxygen due to hypoxemia. FIO2 down over the last 48 hours. Anemia: Improved with PRBCs PAF: Several episodes, self-terminated spontaneously or with cough. Plan: Continue Advair, nebs. Decrease steroids. Continue Levaquin, stop Vanco. Follow CXR. 03/24/18 11:41 Subjective: Feels OK, tires easily with minimal exertion. Denies dyspnea, cough. Objective: Vital Signs Temp Pulse Resp BP Pulse Ox 36.5 C 105 H 16 105/53 L 95 03/24/18 07:52 03/24/18 09:41 03/24/18 09:34 03/24/18 09:41 03/24/18 09:34 Laboratory Results 03/23/18 04:00 03/24/18 05:20 03/23/18 03/24/18 03/25/18 05:59 05:59 05:59 Intake Total 1268 1165 Output Total 5850 930 Balance -4582 235 PT 13.8 SEC (12.0-15.0) 03/20/18 04:00 INR 1.04 (0.83-1.16) 03/20/18 04:00 CXR: Interstitial infiltrates stable/perhaps slightly improved in bases. Images reviewed by me. Physical Exam - Physical Exam General Appearance: alert, no apparent distress EENT: normal ENT inspection Neck: normal inspection Respiratory: lungs clear, No normal breath sounds Cardiac/Chest: regular rate, rhythm, No edema Abdomen: normal bowel sounds, non-tender, soft Skin: normal color, warm/dry Extremities: normal inspection Neuro/Psych: alert, normal mood/affect, oriented x 3 ICD10 Worksheet Patient Problems: Problems Problem Status Onset Acute blood loss anemia Acute CAD, multiple vessel Acute Chest pain Acute S/P CABG x 3 Acute ~03/19/18 Status post circumferential ablation of pulmonary vein Acute ~03/19/18 chronic disease mgmt/transitional care Acute Acute chest pain Acute Atrial fibrillation with RVR Acute
[2018-03-24] MEDS ORDERED: AMIODARONE A.FIB-6HR INFSN (ORDER 2/3) PREMIX IV ONE (17:00)
[2018-03-24] MEDS ORDERED: AMIODARONE A.FIB-LOAD DOSE(ORDER 1/3) PREMIX IV ONE (17:00)
[2018-03-24] MEDS ORDERED: METOPROLOL TARTRATE 5 MG/5 ML INJ IVP ONE ×2 (17:45→19:00)
[2018-03-24] MEDS: OXYCODONE/APAP 5/325 TAB PO PRN (17:49)
[2018-03-24] MEDS ORDERED: ALBUMIN 5% 250 ML IV ONE (19:00)
[2018-03-24] MEDS ORDERED: METOPROLOL TARTRATE 50 MG TAB PO ONE (21:00)
[2018-03-24] MEDS: MELATONIN 3 MG TAB PO SCH (21:45)
[2018-03-24] MEDS ORDERED: AMIODARONE A.FIB-18HR INFSN (ORDER 3/3) IV ONE (23:00)
[2018-03-25] MEDS: OXYCODONE/APAP 5/325 TAB PO PRN ×3 (06:19→20:41)
--- NOTE | 2018-03-25 07:59 | SOAPPROG ---
SOAP Progress Note Assessment/Plan: Assessment: POD#6 urgent CABGx3 (OSUNA-LAD, SV-LCX, SV-RCA), EVH LLE, pulmonary vein isolation w bipolar RF, suture ligation of left atrial appendage Sx severe CAD/ISR RCA with preserved LV systolic fx - Fully revascularized with CABG. Tubes and wires out. Adequately diuresing modest volume overload. Secondary prevention with ASA, BB, and statin (Crestor as intolerant to lipitor and zocor). PAF - [id number] score of 6, refusing anticoagulation in the past. Recurrent PAF post PVI. Benefit of amiodarone felt to outweigh risk of pulmonary toxicity. Adjunctive rate control with BB, uptitrated as tolerated. Antithrombotic prophylaxis with Eliquis. Postoperative acute pulmonary insufficiency - Persistent high suppl O2 needs post extubation. Exacerbated by probable COPD/tobacco abuse, fluid overload and possible ILD. No evidence of infectious pneumonitis. Pulm following. Empiric Abx , steroids. Acute on chronic anemia - Preop H/H . Surgical losses repleted with 3u PRBC. No evidence active bleeding. VTE prophylaxis with SCDs/Eliquis. HTN - Controlled on combination therapy. Preferential use of BB postop. Reintro of home regimen as tolerated. Anxiety - Home regimen (melatonin, prn xanax) resumed. Plan: Transition IV amio to orals tonight. Cont metoprolol tartrate 50 mg BID. IV 2.5 mg boluses prn RVR. Colloid prn SBP < 100. Wean O2 to SpO2 90%. 03/25/18 07:52 Subjective: Talkative. Good appetite. Comfortable at rest. Feels that she's being pushed too hard, given poor sleep, easy fatigueability and breathlessness. 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 Objective: Vital Signs Temp Pulse Resp BP Pulse Ox 36.9 C 66 24 H 120/70 96 03/25/18 00:00 03/25/18 04:00 03/25/18 04:00 03/25/18 04:00 03/25/18 04:00 Laboratory Results 03/23/18 04:00 03/25/18 05:45 03/24/18 03/25/18 03/26/18 05:59 05:59 05:59 Intake Total 1165 1654 Output Total 930 1725 Balance 235 -71 PT 13.8 SEC (12.0-15.0) 03/20/18 04:00 INR 1.04 (0.83-1.16) 03/20/18 04:00 Intermittent AF w RVR. Sufficient BP to escalate BB. Occ dip in SBPs to 90s. Oxymask @ 9 lpm. Balanced I/Os. +4 kg overall. CXR -> decr interstitial infiltrates Cr up a bit, likely sec to relatively lower SBPs Physical Exam - Physical Exam General Appearance: alert, no apparent distress Respiratory: crackles (bases) Cardiac/Chest: tachycardia, irregularly irregular, other (Sternotomy and CT sites CDI) Abdomen: non-tender, soft Skin: warm/dry Extremities: swelling (trace -1+ dependent), other (LLE venotomty CDI) ICD10 Worksheet Patient Problems: Problems Problem Status Onset Acute blood loss anemia Acute CAD, multiple vessel Acute Chest pain Acute S/P CABG x 3 Acute ~03/19/18 Status post circumferential ablation of pulmonary vein Acute ~03/19/18 chronic disease mgmt/transitional care Acute Acute chest pain Acute Atrial fibrillation with RVR Acute
[2018-03-25] MEDS: ROSUVASTATIN CALCIUM 10 MG TAB PO SCH (08:24)
[2018-03-25] MEDS: PANTOPRAZOLE SODIUM 40 MG TAB PO SCH (08:24)
[2018-03-25] MEDS: METOPROLOL TARTRATE 50 MG TAB PO SCH ×2 (08:24→20:33)
[2018-03-25] MEDS: SENNOSIDES/DOCUSATE SODIUM TAB PO SCH ×2 (08:24→20:35)
[2018-03-25] MEDS: APIXABAN 2.5 MG TAB PO SCH ×2 (08:25→20:33)
[2018-03-25] MEDS: ASPIRIN 81 MG CHEWABLE TAB PO SCH (08:25)
[2018-03-25] MEDS: methylPREDNISolone SOD SUCC 125 MG/2 ML VIAL IVP SCH ×2 (08:25→20:34)
[2018-03-25] MEDS ORDERED: METOPROLOL TARTRATE 5 MG/5 ML INJ ONE ×2 (08:47→11:31)
[2018-03-25] MEDS ORDERED: METOPROLOL TARTRATE 5 MG/5 ML INJ IVP ONE (09:00)
[2018-03-25] MEDS: METOPROLOL TARTRATE 5 MG/5 ML INJ IVP SCH ×3 (09:17→09:54)
[2018-03-25] MEDS ORDERED: FUROSEMIDE 40 MG/4 ML VIAL IVP ONE (09:44)
[2018-03-25] MEDS ORDERED: POTASSIUM CL 20 MEQ TAB PO ONE (09:45)
[2018-03-25] MEDS: FLUTICASONE/SALMETER 250/50MCG DISKUS IH SCH ×2 (09:51→19:57)
[2018-03-25] MEDS ORDERED: AMIODARONE HCL 100 ML IV ONE (10:15)
[2018-03-25] MEDS: METOPROLOL TARTRATE 5 MG/5 ML INJ IVP PRN ×3 (11:40→11:52)
[2018-03-25] MEDS: ALPRAZolam 0.5 MG TAB PO PRN ×2 (11:49→20:33)
[2018-03-25] MEDS: AMIODARONE 360MG/200ML PREMIX IV SCH (14:55)
--- NOTE | 2018-03-25 15:00 | PDINTPN ---
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 Has been re-bolused with amiodarone, on beta-blockers. Probable COPD: Currently smoking at time of admission. On inhaled therapies Pulmonary infiltrates/possible ILD: Very mild peripheral mid-upper lung pattern seen on CXR November 2016, more prominent on admission CXR (although this could have been interstitial fluid). Increased pulmonary infiltrates with hypoxemia postoperatively. Likely secondary to volume overload as she has responded well to diuresis. However also being treated for pneumonia and inflammatory lung disease with steroids. Doubt acute amiodarone but cannot rule this out entirely. Anemia: Improved with PRBCs. Hct 34 today DVT prophylaxis: On Eliquis. GI prophylaxis: On pantoprazole Plan: Continue amiodarone intravenously per cardiovascular surgery. Continue metoprolol. Continue Lasix intermittently. Continue Advair, nebs. Decrease IV steroids slowly. Continue Levaquin, x7 days total, 2 more days. Follow CXR , lab. 30 min critical care time spent directly with the patient. Discussed with [facility]S, nursing, RT, and the ICU multi disciplinary team. Subjective: Doing well. Up in the chair. Denies shortness of breath, chest pain. Objective: Vital Signs Temp Pulse Resp BP Pulse Ox 37.1 C 119 H 20 110/97 H 91 L 03/25/18 12:00 03/25/18 12:00 03/25/18 12:00 03/25/18 12:00 03/25/18 12:00 Laboratory Results 03/23/18 04:00 03/25/18 05:45 03/24/18 03/25/18 03/26/18 05:59 05:59 05:59 Intake Total 1165 1654 Output Total 930 1725 Balance 235 -71 PT 13.8 SEC (12.0-15.0) 03/20/18 04:00 INR 1.04 (0.83-1.16) 03/20/18 04:00 Laboratory Tests 03/25/18 05:45 Sodium 135 Potassium 4.8 Chloride 96 L Carbon Dioxide 28 BUN 42 H Creatinine 1.3 H Glucose 165 H Calcium 8.7 CXR: High right diaphragm with left lower lobe/retrocardiac infiltrate/ atelectasis. Improved increased markings Physical Exam - Physical Exam General Appearance: alert, no apparent distress EENT: PERRL/EOMI, other (Oxygen in place at 3 L) Neck: normal inspection (No JVD) Respiratory: lungs clear (Anteriorly), decreased breath sounds (At bases), rales (Few rales at and inspiration upper lobes posteriorly), No rhonchi, No wheezing Cardiac/Chest: regular rate, rhythm (Sinus rhythm Currently. Converted on amiodarone rib old as and drip) Abdomen: normal bowel sounds, non-tender, soft Skin: warm/dry, pallor Extremities: No pedal edema Neuro/Psych: no motor/sensory deficits, No cognition abnormalities ICD10 Worksheet Patient Problems: Problems Problem Status Onset Acute blood loss anemia Acute Acute chest pain Acute Atrial fibrillation with RVR Acute CAD, multiple vessel Acute Chest pain Acute S/P CABG x 3 Acute ~03/19/18 Status post circumferential ablation of pulmonary vein Acute ~03/19/18 chronic disease mgmt/transitional care Acute
--- NOTE | 2018-03-25 17:02 | ASMTCMCOM ---
CM Note CM Note Notes: Sent [place] updated pt info. Continues to be in Af[facility]. Date Signed: 03/25/2018 05:01 PM Electronically Signed By:Mary Peraza LCSW
[2018-03-25] MEDS: MELATONIN 3 MG TAB PO SCH (20:34)
[2018-03-26] MEDS: AMIODARONE 360MG/200ML PREMIX IV SCH (02:51)
[2018-03-26] MEDS: ACETAMINOPHEN 500 MG TAB PO PRN (02:58)
--- NOTE | 2018-03-26 07:09 | SOAPPROG ---
SOAP Progress Note Assessment/Plan: Assessment: POD#7 urgent CABGx3 (OSUNA-LAD, SV-LCX, SV-RCA), EVH LLE, pulmonary vein isolation w bipolar RF, suture ligation of left atrial appendage Sx severe CAD/ISR RCA with preserved LV systolic fx - Fully revascularized with CABG. Tubes and wires out. Adequately diuresing modest volume overload. Secondary prevention with ASA, BB, and statin (Crestor as intolerant to lipitor and zocor). PAF - [id number] score of 6, refusing anticoagulation in the past. Recurrent PAF post PVI. Benefit of amiodarone felt to outweigh risk of pulmonary toxicity. Adjunctive rate control with BB, uptitrated as tolerated. Antithrombotic prophylaxis with Eliquis. Postoperative acute pulmonary insufficiency - Persistent high suppl O2 needs post extubation. Exacerbated by probable COPD/tobacco abuse, fluid overload and possible ILD. No evidence of infectious pneumonitis. Empiric Abx & steroids w taper/duration per pulm. Acute on chronic anemia - Preop H/H . Surgical losses repleted with 3u PRBC. No evidence active bleeding. VTE prophylaxis with SCDs/Eliquis. HTN - Controlled on combination therapy. Preferential use of BB postop. Reintro of home regimen as tolerated. Anxiety - Home regimen (melatonin, prn xanax) resumed. Plan: Transition to oral amio 200 mg BID. Cont metoprolol tartrate 50 mg BID. IV 5 mg boluses prn RVR. Colloid prn SBP < 100. Consider restarting low dose Norvasc tonight. Cont inc activity as tolerated. Tx to PCU. Dispo - Anticipate SNF ([facility]) in 1-2 days. 03/26/18 07:07 Subjective: In good spirits. Slept well. Hungry. Looking forward to getting out of hospital. Objective: Vital Signs Temp Pulse Resp BP Pulse Ox 36.5 C 58 L 18 96/51 L 95 03/25/18 15:48 03/26/18 04:00 03/26/18 04:00 03/26/18 04:00 03/26/18 04:00 Laboratory Results 03/26/18 06:15 03/26/18 06:15 03/25/18 03/26/18 03/27/18 05:59 05:59 05:59 Intake Total 1654 1295 Output Total 0357 7690 Balance -71 -855 PT 13.8 SEC (12.0-15.0) 03/20/18 04:00 INR 1.04 (0.83-1.16) 03/20/18 04:00 SR restored yest afternoon on amio gtt. SBP somewhat labile. No hypotension. Adequate fluid balance. Normalizing Cr. Suppl O2 req down to 2 lpm. - Pending Discharge Pending Discharge Within 48 Hours: Yes Pending Discharge Date: 03/28/18 Pending Discharge Time: 11:00 Physical Exam - Physical Exam General Appearance: alert, no apparent distress Respiratory: lungs clear (grossly) Cardiac/Chest: regular rate, rhythm, other (Sternotomy, CT sites and LLE venotomy healing well.) Abdomen: non-tender, soft Skin: warm/dry Extremities: other (no visible edema) ICD10 Worksheet Patient Problems: Problems Problem Status Onset Acute blood loss anemia Acute CAD, multiple vessel Acute Chest pain Acute S/P CABG x 3 Acute ~03/19/18 Status post circumferential ablation of pulmonary vein Acute ~03/19/18 chronic disease mgmt/transitional care Acute Acute chest pain Acute Atrial fibrillation with RVR Acute
[2018-03-26] MEDS ORDERED: guaiFENesin 200 MG/10 ML UDL PO PRN (07:30)
[2018-03-26] MEDS ORDERED: METOPROLOL TARTRATE 5 MG/5 ML INJ IVP PRN (08:00)
[2018-03-26] MEDS: methylPREDNISolone SOD SUCC 40 MG/ML VIAL IVP SCH ×2 (08:38→20:17)
[2018-03-26] MEDS: ASPIRIN 81 MG CHEWABLE TAB PO SCH (08:38)
[2018-03-26] MEDS: APIXABAN 2.5 MG TAB PO SCH ×2 (08:38→20:16)
[2018-03-26] MEDS: METOPROLOL TARTRATE 50 MG TAB PO SCH ×2 (08:38→20:16)
[2018-03-26] MEDS: SENNOSIDES/DOCUSATE SODIUM TAB PO SCH ×2 (08:38→20:17)
[2018-03-26] MEDS: PANTOPRAZOLE SODIUM 40 MG TAB PO SCH (08:38)
[2018-03-26] MEDS: FLUTICASONE/SALMETER 250/50MCG DISKUS IH SCH ×2 (08:57→21:14)
[2018-03-26] MEDS ORDERED: CETIRIZINE 10 MG TAB PO PRN (09:00)
[2018-03-26] MEDS ORDERED: FUROSEMIDE 40 MG/4 ML VIAL IVP ONE (09:39)
[2018-03-26] MEDS: ROSUVASTATIN CALCIUM 10 MG TAB PO SCH (10:13)
[2018-03-26] MEDS: AMIODARONE HCL 200 MG TAB PO SCH ×2 (10:13→20:16)
--- NOTE | 2018-03-26 11:17 | PDINTPN ---
Contact Person Progress Note Assessment/Plan: Assessment: S/P CABG x 3 PAF: With a rapid ventricular response. Converted yesterday with bolus amiodarone. On this now orally and on beta-blockers. COPD: Ongoing tobacco abuse, no intention of quitting. On inhaled therapies. Bronchitis, possible pneumonia. Increased cough, congestion and secretions today. On Levaquin. Will continue duo nebs scheduled and add Mucomyst. Pulmonary infiltrates/possible ILD: Very mild peripheral mid-upper lung pattern seen on CXR November 2016, more prominent on admission CXR (although this could have been interstitial fluid). Increased pulmonary infiltrates with hypoxemia postoperatively. Likely secondary to volume overload as she has responded well to diuresis. However also being treated for pneumonia with antibiotics and inflammatory lung disease with steroids. Doubt acute amiodarone but cannot rule this out entirely. Anemia: Improved with PRBCs. Hct 32 today DVT prophylaxis: On Eliquis. GI prophylaxis: On pantoprazole Plan: Continue amiodarone and metoprolol orally. Continue Lasix intermittently as needed. 40 mg given this morning.. Continue Advair, changed to scheduled duo nebs and had Mucomyst. Stop IV steroids after today, go to prednisone at 40. Check sputum culture if an expectorated specimen can be obtained. Continue Levaquin for now. Follow CXR, lab. 30 min of critical care time spent directly with the patient. Discussed issues with the patient,[facility], respiratory, and the ICU multi disciplinary team. Subjective: Increased cough and congestion today. Bring up some mucus with a small amount of blood. Objective: Vital Signs Temp Pulse Resp BP Pulse Ox 36.4 C 80 26 H 122/56 H 99 03/26/18 07:42 03/26/18 09:01 03/26/18 09:01 03/26/18 08:38 03/26/18 09:01 Laboratory Results 03/26/18 06:15 03/26/18 06:15 03/25/18 03/26/18 03/27/18 05:59 05:59 05:59 Intake Total 1654 1295 Output Total 1725 2150 Balance -71 -855 PT 13.8 SEC (12.0-15.0) 03/20/18 04:00 INR 1.04 (0.83-1.16) 03/20/18 04:00 Laboratory Tests 03/26/18 06:15 Calcium 7.7 L Total Bilirubin 0.4 AST 25 ALT 35 Albumin 2.8 L CXR: Lines and tubes in good position. Left lower lobe infiltrate/atelectasis persists. Small effusions, mild increased markings Physical Exam - Physical Exam General Appearance: alert, no apparent distress EENT: PERRL/EOMI, other (Nasal cannula at 2-3 L) Neck: normal inspection (No obvious JVD) Respiratory: decreased breath sounds (At bases, coarse), rales (Few rales, left base), wheezing (Minimal), No lungs clear, No normal breath sounds, No rhonchi ( No qian rhonchi however central congestion is present with cough) Cardiac/Chest: regular rate, rhythm, No gallop Abdomen: non-tender, soft, No normal bowel sounds (Decreased, present) Pelvic Exam: other (No Espinoza catheter, good urine output) Skin: normal color, warm/dry Extremities: pedal edema (Trace) Neuro/Psych: no motor/sensory deficits, No cognition abnormalities ICD10 Worksheet Patient Problems: Problems Problem Status Onset Acute blood loss anemia Acute Status post circumferential ablation of pulmonary vein Acute ~03/19/18 S/P CABG x 3 Acute ~03/19/18 CAD, multiple vessel Acute chronic disease mgmt/transitional care Acute Acute chest pain Acute Atrial fibrillation with RVR Acute Chest pain Acute
[2018-03-26] MEDS: ACETYLCYSTEINE 20% IH/PO 4 ML VIAL IH SCH ×3 (12:13→21:04)
[2018-03-26] MEDS: IPRATROPIUM/ALBUTEROL 3 ML DEYVIAL IH SCH ×3 (12:14→21:04)
[2018-03-26] MEDS: traMADol 50 MG TAB PO PRN ×2 (15:31→22:46)
[2018-03-26] MEDS: OXYCODONE/APAP 5/325 TAB PO PRN ×2 (18:21→22:45)
[2018-03-26] MEDS: MELATONIN 3 MG TAB PO SCH (20:15)
[2018-03-27] MEDS: OXYCODONE/APAP 5/325 TAB PO PRN ×2 (03:30→16:11)
[2018-03-27] MEDS: ACETYLCYSTEINE 20% IH/PO 4 ML VIAL IH SCH ×2 (05:33→09:56)
[2018-03-27] MEDS: IPRATROPIUM/ALBUTEROL 3 ML DEYVIAL IH SCH ×2 (05:33→09:56)
[2018-03-27] MEDS: traMADol 50 MG TAB PO PRN (05:48)
--- NOTE | 2018-03-27 07:45 | SOAPPROG ---
SOAP Progress Note Assessment/Plan: POD #8: Urgent CABGx3 (OSUNA-LAD, SV-LCX, SV-RCA), EVH LLE, pulmonary vein isolation w bipolar RF, suture ligation of left atrial appendage Severe CAD/ISR RCA with preserved LV systolic fx s/p CABGx3 - Secondary prevention with ASA, BB, and statin PAF s/p PVI ablation - [id number] - Eliquis started - AF prophylaxis with BB and amiodarone Acute pulmonary insufficiency with h/o current tobacco abuse - Stable on nasal cannula 3-4 l/min nasal cannula - Continue steroids per pulmonology, ABX stopped Acute blood loss anemia on chronic anemia - 3 units PRBCs transfuse with stable H/H VTE prophylaxis - SCDs/Eliquis HTN - Controlled on BB Subjective: Feeling great. Denies pain/SOB. Ambulating without issues. Looking forward to leaving hospital. Objective: Vital Signs Temp Pulse Resp BP Pulse Ox 36.6 C 74 18 134/60 H 95 03/27/18 04:00 03/27/18 05:35 03/27/18 05:35 03/27/18 04:00 03/27/18 05:35 Laboratory Results 03/26/18 06:15 03/27/18 05:50 03/26/18 03/27/18 03/28/18 05:59 05:59 05:59 Intake Total 1295 1722 Output Total 2150 3650 100 Balance -855 -1928 -100 PT 13.8 SEC (12.0-15.0) 03/20/18 04:00 INR 1.04 (0.83-1.16) 03/20/18 04:00 Physical Exam - Physical Exam General Appearance: WD/WN, alert, no apparent distress EENT: No scleral icterus (R), No scleral icterus (L) Neck: normal inspection Respiratory: No respiratory distress Cardiac/Chest: regular rate, rhythm Abdomen: non-tender, soft, No distended Skin: normal color, warm/dry Extremities: No pedal edema Neuro/Psych: no motor/sensory deficits, alert, normal mood/affect, oriented x 3 ICD10 Worksheet Patient Problems: Problems Problem Status Onset Acute blood loss anemia Acute CAD, multiple vessel Acute Chest pain Acute S/P CABG x 3 Acute ~03/19/18 Status post circumferential ablation of pulmonary vein Acute ~03/19/18 chronic disease mgmt/transitional care Acute Acute chest pain Acute Atrial fibrillation with RVR Acute
[2018-03-27] MEDS: ROSUVASTATIN CALCIUM 10 MG TAB PO SCH (08:07)
[2018-03-27] MEDS: METOPROLOL TARTRATE 50 MG TAB PO SCH ×2 (08:08→18:14)
[2018-03-27] MEDS: PANTOPRAZOLE SODIUM 40 MG TAB PO SCH (08:08)
[2018-03-27] MEDS: ASPIRIN 81 MG CHEWABLE TAB PO SCH (08:11)
[2018-03-27] MEDS: SENNOSIDES/DOCUSATE SODIUM TAB PO SCH ×2 (08:11→21:59)
[2018-03-27] MEDS: APIXABAN 2.5 MG TAB PO SCH ×2 (08:11→21:54)
[2018-03-27] MEDS: AMIODARONE HCL 200 MG TAB PO SCH ×2 (08:11→21:54)
[2018-03-27] MEDS ORDERED: predniSONE 20 MG TAB PO SCH (09:00)
--- NOTE | 2018-03-27 10:41 | PDIAF ---
- Diagnosis Diagnosis: s/p CABG Code Status: Full Code - Medication Management Discharge Medications: Medications to Continue on Transfer Acetaminophen [Tylenol ES 500 mg (*)] 1,000 mg PO TID PRN 11/13/16 [Last Taken 11/13/16 05:00] Metoprolol Tartrate [Lopressor 50 mg (*)] 50 mg PO BID 11/13/16 [Last Taken 02/22] guaiFENesin [Cough Syrup] 200 mg PO Q6HRS PRN 11/13/16 [Last Taken Unknown] Cholecalciferol Vit D3 [Vitamin D3 (*)] 50,000 unit PO Q30D 03/18/18 [Last Taken Unknown] Fluticasone/Salmeter 250/50Mcg [Advair 250/50 (*)] 1 puffs IH BID 03/18/18 [ Last Taken Unknown] Loratadine [Claritin 10 mg] 10 mg PO DAILY PRN 03/18/18 [Last Taken Unknown] ALPRAZolam [Xanax 0.5 MG (*)] 0.5 mg PO TID PRN tab 03/27/18 [Last Taken Unknown] Amiodarone HCl [Pacerone (*)] 200 mg PO BID tab 03/27/18 [Last Taken Unknown] Apixaban [Eliquis] 2.5 mg PO BID tab 03/27/18 [Last Taken Unknown] Aspirin [Aspirin 81mg (*)] 81 mg PO DAILY tab.chew 03/27/18 [Last Taken Unknown ] Furosemide [Lasix 20 MG (*)] 20 mg PO DAILY #30 tab 03/27/18 [Last Taken Unknown ] Melatonin [Melatonin 3 MG (*)] 10 mg PO HS tab 03/27/18 [Last Taken Unknown] Rosuvastatin Calcium [Crestor] 10 mg PO DAILY tab 03/27/18 [Last Taken Unknown] methylPREDNISolone [Medrol Dose Valentino] 1 each PO AD #1 ea 03/27/18 [Last Taken Unknown] oxyCODONE/APAP 5/325 [Percocet 5/325 (*)] 1 - 2 tab PO Q4HRS PRN tab 03/27/18 [ Last Taken Unknown] Discharge Medications: Refer to the Discharge Home Medication list for PRN reason. - Orders Services needed: Registered Nurse, Certified Traveling Clerk, Master Vulcanizer Rubber Plate , Physical Therapy, Occupational Therapy Oxygen: 2 l/min nasal cannula, continuous Diet Recommendation: cardiac -low fat low salt, fluid restriction (use comment for amount) (2 liters per day) Diet Texture: Regular Texture Diet, Thin Liquids, Meds Whole w/Liquids Weigh Patient: daily Espinoza: No Additional Instructions: Discharge Instructions: Call [facility] cardiac rehab to enroll in phase 2 classes if not already arranged. Sternal precautions x 4 weeks. Avoid lifting > 10lbs with an outstretched arm. Avoid push/pull activities. No driving until cleared by surgery. Elevate low legs at rest. Avoid prolonged standing or dangling. Cleanse wounds once daily with soap and water. Avoid immersion (pool, hot tub, bath) until scabs off. Ok to leave all wounds open to air. Avoid creams or ointments until scabs fall off. Log daily vital signs once home: weight, heart rate, blood pressure, and pulse oximetry if on oxygen. Call [employer] for overnight weight gain > 2lbs, weekly gain > 5lbs or worsening leg swelling. Call [employer] for resting heart rate > 120 OR for systolic blood pressure consistently < 90 or > 140. Target oxygen saturation > 89%. Ok to use [id number] medications for bowel function. Chest x-ray Instructions: Please obtain a chest xray prior to surgical appointment. Chest x-rays dont require an appointment. Come to the Emergency Room entrance at the [facility] location. Sign in at the computer kiosk in the entryway. You will be given a number and may sit in the waiting area until called. You will be registered and directed to the Imaging desk on the 1st floor. This process can take up to an hour. Make sure you allow enough time before your appointment to have your x-ray taken. - Follow Up Care Current Providers and Referrals: Delta Mack DO [Doctor of Osteopathy] - 04/02/18 9:30 am VICTOR HUGO SARKAR [Primary Care Provider] - As per Instructions
--- NOTE | 2018-03-27 11:45 | PDINTPN ---
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 Doing well. For possible discharge today per cardiovascular surgery PAF: With a rapid ventricular response. Resolved, on amiodarone and metoprolol. COPD: Ongoing tobacco abuse, no intention of quitting. On inhaled therapies. Probably moderate? Will need oxygen at discharge as she reports not being on oxygen at [facility]. Will need pulmonary follow-up in the future. Bronchitis, possible pneumonia. Improved, antibiotics completed. Will go home on Advair. Apparently has a rescue inhaler as well. Not on her admission SEP. Pulmonary infiltrates/possible ILD: Very mild peripheral mid-upper lung pattern seen on CXR November 2016, more prominent on admission CXR (although this could have been interstitial fluid). Increased pulmonary infiltrates with hypoxemia postoperatively. Likely secondary to volume overload as she has responded well to diuresis. However was also treated for pneumonia with antibiotics and inflammatory lung disease with steroids. Doubt acute amiodarone but cannot rule this out entirely. On a steroid taper. Anemia: Improved post PRBCs. Hct 32 yesterday. For outpatient follow-up Anticoagulation: On Eliquis. AMS: The patient is clearly delusional. 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 I am unclear what her psychiatric diagnosis is, however she is quite calm, not agitated. Plan: To go back to [facility] today. Multiple medications discontinued. Cardiac medications per [facility]. From a pulmonary standpoint she will go home on oxygen, a Medrol Dosepak taper, Advair twice daily by [place], and p.r.n. Albuterol. Smoking cessation was encouraged however she seems to have no intention of quitting. I recommended that she follows up with either myself or Dr. Goode in the office in 3-5 weeks. Pulmonary function studies will be needed at some point. A follow-up x-ray and outpatient CT scan of the chest will be needed as well. Discussed with the patient and with cardiovascular surgery. Subjective: Feels better. Denies shortness breath, chest pain. Anxious to go back to [facility] and restart smoking. Objective: Vital Signs Temp Pulse Resp BP Pulse Ox 36.5 C 65 11 L 140/78 H 92 03/27/18 08:00 03/27/18 09:59 03/27/18 09:59 03/27/18 08:08 03/27/18 09:59 Laboratory Results 03/26/18 06:15 03/27/18 05:50 03/26/18 03/27/18 03/28/18 05:59 05:59 05:59 Intake Total 1295 1722 Output Total 2150 3650 100 Balance -855 -1928 -100 PT 13.8 SEC (12.0-15.0) 03/20/18 04:00 INR 1.04 (0.83-1.16) 03/20/18 04:00 Physical Exam - Physical Exam General Appearance: alert, no apparent distress EENT: PERRL/EOMI, other (Nasal cannula in place at 2-3 L. 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
[2018-03-27] MEDS: FLUTICASONE/SALMETER 250/50MCG DISKUS IH SCH ×2 (11:59→20:21)
--- NOTE | 2018-03-27 12:32 | ASMTCMCOM ---
CM Note CM Note Notes: Pts case discussed w/ KIMBERLY Berumen and MARCI Miles. Dr. Mack and KIMBERLY Berumen reports that pt is medically stable to d/c. Pt wants to appeal her d/c. Pt is reports feeling short of breath after a shower. Sarah from case management will be working with pt to appeal her d/c. CM notified Abad at [facility]. CM to follow. Plan: [facility] Date Signed: 03/27/2018 11:57 AM Electronically Signed By:NAUN Tompkins
--- NOTE | 2018-03-27 15:09 | ASMTCMCOM ---
CM Note CM Note Notes: Abad from [facility] reports that they are unable to meet pts level of care. CM involved [facility] and Milagros Gallo. Milagros is requesting that pt has an ethics consult. CM communicated this to KIMBERLY Berumen. CM spoke to pts daughter Carmen and she reports that pts MDPOA is her son Kwasi Izaguirre. Carmen reports that Kwasi is currently in [place] and does not have any services. Carmen reports that if CM needs to get in contact w/ Kwasi to have her contact him directly. Carmen does not have the MDPOA paperwork. She reports that her sister Edilma has it. CM left a msg for Edilma (P# [phone]). CM to follow. Plan: TBD Date Signed: 03/27/2018 03:08 PM Electronically Signed By:NAUN Tompkins
--- NOTE | 2018-03-27 16:01 | ASMTCMCOM ---
CM Note CM Note Notes: CM spoke to Edilma, daughter for dispo planning. Edilma reports that Kwasi Izaguirre, her nephew is pts guardian. Edilma reports that she does not have any of the guardianship paperwork. Edilma provided JESSICA w/ Kwasi's phone number (P#: [phone]). CM called and left a msg. CM left a msg w/ Abad from [facility] requesting guardianship paperwork sent to [facility]. CM provided Abad w/ the fax number for 2w. JESSICA to follow. Date Signed: 03/27/2018 04:00 PM Electronically Signed By:NAUN Tompkins
[2018-03-27] MEDS: ALPRAZolam 0.5 MG TAB PO PRN ×2 (17:11→23:03)
[2018-03-27] MEDS ORDERED: METOPROLOL TARTRATE 5 MG/5 ML INJ ONE (17:30)
[2018-03-27] MEDS ORDERED: AMIODARONE HCL 100 ML IV ONE ×2 (17:35→21:45)
--- NOTE | 2018-03-27 17:35 | ASMTCMCOM ---
CM Note CM Note Notes: Milagros Gallo and myself have spoken with the DON at [facility] this evening. She wants to ensure patient is medically stable and that they are able to handle the precautions/recommendations. I have sent updated medical notes from today via [facility]. CM will contact the guardian to ensure he understands the expectations/plan on . DON also requesting a handoff from Dr. Mack or perhaps one of his PAs to their medical provider - Dr. Bullard. Will obtain that contact information on and speak with Dr. Mack's team about the possibility of doing this. CM will continue to follow case. Plan: Likely return to [facility] Date Signed: 03/27/2018 05:34 PM Electronically Signed By:Latonia Garland RN
[2018-03-27] MEDS ORDERED: METOPROLOL TARTRATE 5 MG/5 ML INJ IVP ONE (17:36)
[2018-03-27] MEDS ORDERED: METOPROLOL TARTRATE 25 MG TAB PO ONE (21:45)
[2018-03-27] MEDS: MELATONIN 3 MG TAB PO SCH (21:55)
--- NOTE | 2018-03-28 07:13 | SOAPPROG ---
SOAP Progress Note Assessment/Plan: POD #9: Urgent CABGx3 (OSUNA-LAD, SV-LCX, SV-RCA), EVH LLE, pulmonary vein isolation w bipolar RF, suture ligation of left atrial appendage Severe CAD/ISR RCA with preserved LV systolic fx s/p CABGx3 - Secondary prevention with ASA, BB, and statin PAF s/p PVI ablation - [id number] - Eliquis started - AF prophylaxis with BB, amiodarone, and CCB Acute pulmonary insufficiency with h/o current tobacco abuse - Stable on nasal cannula 3-4 l/min nasal cannula - Continue steroids per pulmonology, ABX stopped Acute blood loss anemia on chronic anemia - 3 units PRBCs transfused with stable H/H VTE prophylaxis - SCDs/Eliquis Disposition - Pt appealed d/c to SNF - Appeal process underway Subjective: Has SOB and chest pressure. Objective: Vital Signs Temp Pulse Resp BP Pulse Ox 36.9 C 135 H 20 105/72 91 L 03/28/18 04:00 03/28/18 04:00 03/28/18 04:00 03/28/18 04:00 03/28/18 04:00 Microbiology 03/22/18 11:23 Blood Culture - Final Blood 03/22/18 11:20 Blood Culture - Final Blood Laboratory Results 03/26/18 06:15 03/27/18 05:50 03/27/18 03/28/18 03/29/18 05:59 05:59 05:59 Intake Total 1722 1950 Output Total 3650 200 Balance -1928 1750 PT 13.8 SEC (12.0-15.0) 03/20/18 04:00 INR 1.04 (0.83-1.16) 03/20/18 04:00 Physical Exam - Physical Exam General Appearance: WD/WN, alert, no apparent distress EENT: No scleral icterus (R), No scleral icterus (L) Neck: normal inspection Respiratory: respiratory distress Cardiac/Chest: irregularly irregular Abdomen: non-tender, soft, No distended Skin: normal color, warm/dry Extremities: No pedal edema Neuro/Psych: no motor/sensory deficits, alert, normal mood/affect, oriented x 3 ICD10 Worksheet Patient Problems: Problems Problem Status Onset Acute blood loss anemia Acute CAD, multiple vessel Acute Chest pain Acute S/P CABG x 3 Acute ~03/19/18 Status post circumferential ablation of pulmonary vein Acute ~03/19/18 chronic disease mgmt/transitional care Acute Acute chest pain Acute Atrial fibrillation with RVR Acute
[2018-03-28] MEDS ORDERED: DILTIAZEM 30 MG TAB PO SCH (07:14)
[2018-03-28] MEDS ORDERED: DILTIAZEM 25 MG/5 ML VIAL IVP SCH (07:15)
[2018-03-28] MEDS: traMADol 50 MG TAB PO PRN ×2 (07:38→19:44)
[2018-03-28] MEDS: ALPRAZolam 1 MG TAB PO PRN ×2 (07:56→20:03)
[2018-03-28] MEDS: ROSUVASTATIN CALCIUM 10 MG TAB PO SCH (08:02)
[2018-03-28] MEDS: ASPIRIN 81 MG CHEWABLE TAB PO SCH (08:02)
[2018-03-28] MEDS: APIXABAN 2.5 MG TAB PO SCH ×2 (08:02→19:43)
[2018-03-28] MEDS: AMIODARONE HCL 200 MG TAB PO SCH ×2 (08:02→19:43)
[2018-03-28] MEDS: PANTOPRAZOLE SODIUM 40 MG TAB PO SCH (08:02)
[2018-03-28] MEDS: SENNOSIDES/DOCUSATE SODIUM TAB PO SCH ×2 (08:02→20:04)
[2018-03-28] MEDS ORDERED: POTASSIUM CL 20 MEQ TAB PO ONE (08:13)
[2018-03-28] MEDS ORDERED: NS 500 ML IV ONE (08:16)
[2018-03-28] MEDS ORDERED: METOPROLOL TARTRATE 50 MG TAB PO SCH (09:00)
[2018-03-28] MEDS: METOPROLOL TARTRATE 50 MG TAB PO SCH ×2 (09:04→19:43)
[2018-03-28] MEDS: methylPREDNISolone 4 MG TAB PO SCH ×4 (09:18→22:25)
[2018-03-28] MEDS: FLUTICASONE/SALMETER 250/50MCG DISKUS IH SCH ×2 (11:14→20:43)
[2018-03-28] MEDS: DILTIAZEM 60 MG TAB PO SCH ×2 (11:43→18:41)
--- NOTE | 2018-03-28 16:40 | ASMTCMCOM ---
CM Note CM Note Notes: Guardianship paperwork obtained from [facility] and it is currently in pts chart. CM provided KIMBERLY Berumen w/ phone number for the medical imaging specialist at [facility]. Ata will contact the medical imaging specialist tomorrow if pt is medically stable to d/c. Pt is currently in afib. CM met w/ Kwasi, guardian and Carmen, daughter today. CM to follow. Plan: Most likely return back to [place] [facility] Date Signed: 03/28/2018 04:40 PM Electronically Signed By:NAUN Tompkins
[2018-03-28] MEDS ORDERED: NS BOLUS 500 ML (Wide open) IV ONE (17:00)
[2018-03-28] MEDS ORDERED: AMIODARONE HCL 100 ML IV ONE (17:00)
[2018-03-28] MEDS: MELATONIN 3 MG TAB PO SCH (19:43)
[2018-03-29] MEDS: DILTIAZEM 60 MG TAB PO SCH ×2 (00:02→07:08)
[2018-03-29] MEDS: ALPRAZolam 1 MG TAB PO PRN ×2 (03:44→10:05)
[2018-03-29] MEDS: traMADol 50 MG TAB PO PRN ×2 (03:45→10:04)
[2018-03-29] MEDS ORDERED: methylPREDNISolone 4 MG TAB PO SCH ×2 (07:30→21:00)
--- NOTE | 2018-03-29 07:51 | SOAPPROG ---
SOAP Progress Note Assessment/Plan: POD #10: Urgent CABGx3 (OSUNA-LAD, SV-LCX, SV-RCA), EVH LLE, pulmonary vein isolation w bipolar RF, suture ligation of left atrial appendage Severe CAD/ISR RCA with preserved LV systolic fx s/p CABGx3 - Secondary prevention with ASA, BB, and statin PAF s/p PVI ablation - [id number] - Eliquis started - AF prophylaxis with BB, amiodarone, and CCB Acute pulmonary insufficiency with h/o current tobacco abuse - Stable on nasal cannula 3-4 l/min nasal cannula - Continue steroids per pulmonology, ABX stopped Acute blood loss anemia on chronic anemia - 3 units PRBCs transfused with stable H/H VTE prophylaxis - SCDs/Eliquis Disposition - SNF today pending approval Subjective: 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 Happy staying in hospital. Objective: Vital Signs Temp Pulse Resp BP Pulse Ox 36.3 C 64 20 114/58 L 91 L 03/29/18 07:36 03/29/18 07:36 03/29/18 07:36 03/29/18 07:36 03/29/18 07:36 Laboratory Results 03/28/18 07:30 03/29/18 03:53 03/28/18 03/29/18 03/30/18 05:59 05:59 05:59 Intake Total 1950 1970 Output Total 200 400 Balance 1750 1570 PT 13.8 SEC (12.0-15.0) 03/20/18 04:00 INR 1.04 (0.83-1.16) 03/20/18 04:00 Physical Exam - Physical Exam General Appearance: WD/WN, alert, no apparent distress EENT: No scleral icterus (R), No scleral icterus (L) Neck: normal inspection Respiratory: No respiratory distress Cardiac/Chest: regular rate, rhythm Abdomen: non-tender, soft, No distended Skin: normal color, warm/dry Extremities: No pedal edema Neuro/Psych: no motor/sensory deficits, alert, normal mood/affect, cognition abnormalities ICD10 Worksheet Patient Problems: Problems Problem Status Onset Acute blood loss anemia Acute CAD, multiple vessel Acute Chest pain Acute S/P CABG x 3 Acute ~09/11/18 Status post circumferential ablation of pulmonary vein Acute ~03/19/18 chronic disease mgmt/transitional care Acute Acute chest pain Acute Atrial fibrillation with RVR Acute
[2018-03-29] MEDS ORDERED: DILTIAZEM CD 120 MG CAP PO SCH (09:00)
[2018-03-29] MEDS: FLUTICASONE/SALMETER 250/50MCG DISKUS IH SCH (09:10)
[2018-03-29] MEDS: APIXABAN 2.5 MG TAB PO SCH (09:30)
[2018-03-29] MEDS: PANTOPRAZOLE SODIUM 40 MG TAB PO SCH (09:30)
[2018-03-29] MEDS: SENNOSIDES/DOCUSATE SODIUM TAB PO SCH (09:30)
[2018-03-29] MEDS: ASPIRIN 81 MG CHEWABLE TAB PO SCH (09:31)
[2018-03-29] MEDS: METOPROLOL TARTRATE 50 MG TAB PO SCH (09:31)
[2018-03-29] MEDS: AMIODARONE HCL 200 MG TAB PO SCH (09:31)
[2018-03-29] MEDS: ROSUVASTATIN CALCIUM 10 MG TAB PO SCH (09:32)
--- NOTE | 2018-03-29 10:06 | PDIAF ---
- Diagnosis Diagnosis: s/p CABG, PVI ablation Code Status: Full Code - Medication Management Discharge Medications: Medications to Continue on Transfer Acetaminophen [Tylenol ES 500 mg (*)] 1,000 mg PO TID PRN 11/13/16 [Last Taken 11/13/16 05:00] Metoprolol Tartrate [Lopressor 50 mg (*)] 50 mg PO BID 11/13/16 [Last Taken 02/22] guaiFENesin [Cough Syrup] 200 mg PO Q6HRS PRN 11/13/16 [Last Taken Unknown] Cholecalciferol Vit D3 [Vitamin D3 (*)] 50,000 unit PO Q30D 03/18/18 [Last Taken Unknown] Fluticasone/Salmeter 250/50Mcg [Advair 250/50 (*)] 1 puffs IH BID 03/18/18 [ Last Taken Unknown] Loratadine [Claritin 10 mg] 10 mg PO DAILY PRN 03/18/18 [Last Taken Unknown] ALPRAZolam [Xanax 0.5 MG (*)] 0.5 mg PO TID PRN tab 03/27/18 [Last Taken Unknown] Amiodarone HCl [Pacerone (*)] 200 mg PO BID tab 03/27/18 [Last Taken Unknown] Apixaban [Eliquis] 2.5 mg PO BID tab 03/27/18 [Last Taken Unknown] Aspirin [Aspirin 81mg (*)] 81 mg PO DAILY tab.chew 03/27/18 [Last Taken Unknown ] Melatonin [Melatonin 3 MG (*)] 10 mg PO HS tab 03/27/18 [Last Taken Unknown] Rosuvastatin Calcium [Crestor] 10 mg PO DAILY tab 03/27/18 [Last Taken Unknown] Diltiazem Cd [Cardizem ER 120 MG (*)] 240 mg PO DAILY cap 03/29/18 [Last Taken Unknown] methylPREDNISolone [Medrol Dose Valentino] 1 each PO AD #1 ea 03/29/18 [Last Taken Unknown] traMADol [Ultram 50 mg (*)] 25 - 50 mg PO Q6HRS PRN tab 03/29/18 [Last Taken Unknown] Discharge Medications: Refer to the Discharge Home Medication list for PRN reason. PICC Care - Routine: N/A - Orders Services needed: Registered Nurse, Certified Label Stitcher, Master Produce Service Team Member , Physical Therapy, Occupational Therapy Oxygen: 3 l/min nasal cannula, continuous Diet Recommendation: cardiac -low fat low salt, fluid restriction (use comment for amount) Diet Texture: Regular Texture Diet, Thin Liquids, Meds Whole w/Liquids Weigh Patient: daily Espinoza: No Additional Instructions: Discharge Instructions: Call [facility] cardiac rehab to enroll in phase 2 classes if not already arranged. Sternal precautions x 4 weeks. Avoid lifting > 10lbs with an outstretched arm. Avoid push/pull activities. No driving until cleared by surgery. Elevate low legs at rest. Avoid prolonged standing or dangling. Cleanse wounds once daily with soap and water. Avoid immersion (pool, hot tub, bath) until scabs off. Ok to leave all wounds open to air. Avoid creams or ointments until scabs fall off. Log daily vital signs once home: weight, heart rate, blood pressure, and pulse oximetry if on oxygen. Call [place] for overnight weight gain > 2lbs, weekly gain > 5lbs or worsening leg swelling. Call [place] for resting heart rate consistently > 120 OR for systolic blood pressure consistently < 90 or > 140. Target oxygen saturation > 89%. Ok to use [id number] medications for bowel function. Chest x-ray Instructions: Please obtain a chest xray prior to surgical appointment. Chest x-rays dont require an appointment. Come to the Emergency Room entrance at the [facility] location. Sign in at the computer kiosk in the entryway. You will be given a number and may sit in the waiting area until called. You will be registered and directed to the Imaging desk on the 1st floor. This process can take up to an hour. Make sure you allow enough time before your appointment to have your x-ray taken. - Follow Up Care Current Providers and Referrals: Delta Mack DO [Doctor of Osteopathy] - 04/02/18 9:30 am [facility] SARKAR [Primary Care Provider] - As per Instructions
--- NOTE | 2018-03-29 10:18 | PDDCSUM ---
Discharge Summary Discharge Summary: ADMISSION DATE: 03/18/18 DISCHARGE DATE: 03/29/18 DISCHARGE DIAGNOSES 1. Unstable angina 2. Severe three vessel coronary atherosclerotic disease 3. Paroxysmal atrial fibrillation with rapid ventricular rate 4. Acute blood loss anemia 5. Tobacco abuse with probable COPD acute and post-op pulmonary insufficiency 6. Anxiety PROCEDURES 03/19/18, Delta Mack: 1. Urgent CABGx3 (OSUNA-LAD, SVG-lat circ, SVG-RCA) 2. Ligation left atrial appendage 3. Bilateral pulmonary vein ablation 4. Endoscopic vein harvest left leg HPI 72F with unstable angina and severe 3-vessel CAD with h/o prior PCI and active tobacco abuse. HOSPITAL COURSE BY PROBLEM LIST 1. Unstable angina with severe 3-vessel CAD and preserved LV function - s/p CABGx3. Beta-keira, ASA, and statin prescribed for secondary prevention. 2. Paroxysmal atrial fibrillation with RVR - s/p bilateral pulmonary vein ablation with closure of left atrial appendage. Eliquis for anticoagulation. Metoprolol, Cardizem, and Amiodarone for rate and rhythm control. 3. Acute blood loss anemia - stable HCT s/p 3 units of PRBCs transfused. 4. Tobacco abuse with probable COPD and acute post-op pulmonary insufficiency - slowly weaned to nasal cannula. Short course of IV antibiotics administered. Steroids and prn albuterol prescribed by pulmonology. Advair continued. 5. Anxiety - prn Xanax prescribed. CONDITION Good DISPOSITION [facility] ACTIVITY Pt was instructed on sternal precautions, activity limitations, and which problems to call [facility] with. Please see Discharge Plan and Interagency Discharge Form in chart for specifics. DISCHARGE MEDICATIONS Acetaminophen [Tylenol ES 500 mg (*)] 1,000 mg PO TID PRN Metoprolol Tartrate [Lopressor 50 mg (*)] 50 mg PO BID guaiFENesin [Cough Syrup] 200 mg PO Q6HRS PRN Cholecalciferol Vit D3 [Vitamin D3 (*)] 50,000 unit PO Q30D Fluticasone/Salmeter 250/50Mcg [Advair 250/50 (*)] 1 puffs IH BID Loratadine [Claritin 10 mg] 10 mg PO DAILY PRN ALPRAZolam [Xanax 0.5 MG (*)] 0.5 mg PO TID PRN Amiodarone HCl [Pacerone (*)] 200 mg PO BID (twice daily for 7 days then once daily for 21 days) Apixaban [Eliquis] 2.5 mg PO BID Aspirin [Aspirin 81mg (*)] 81 mg PO DAILY Melatonin [Melatonin 3 MG (*)] 10 mg PO HS Rosuvastatin Calcium [Crestor] 10 mg PO DAILY Albuterol [Proventil Inhaler HFA (*)] 1 - 2 puffs IH Q4H PRN Diltiazem Cd [Cardizem ER 120 MG (*)] 240 mg PO DAILY methylPREDNISolone [Medrol Dose Valentino] 1 each PO AD #1 traMADol [Ultram 50 mg (*)] 25 - 50 mg PO Q6HRS PRN Discontinue: Amlodipine, Lisinopril PENDING STUDIES/LABS 1. CXR prior to surgical follow-up FOLLOW-UP 1. Delta Mack (cardiac surgery), 03/26/18, 10:00 AM 2. Theodore Parker (cardiology), TBD 3. Antony Murillo (pulmonology), TBD
--- NOTE | 2018-03-29 10:37 | PDIAF ---
- Diagnosis Diagnosis: s/p CABG, PVI ablation Code Status: Full Code - Medication Management Discharge Medications: Medications to Continue on Transfer Acetaminophen [Tylenol ES 500 mg (*)] 1,000 mg PO TID PRN 11/13/16 [Last Taken 11/13/16 05:00] Metoprolol Tartrate [Lopressor 50 mg (*)] 50 mg PO BID 11/13/16 [Last Taken 02/22] guaiFENesin [Cough Syrup] 200 mg PO Q6HRS PRN 11/13/16 [Last Taken Unknown] Cholecalciferol Vit D3 [Vitamin D3 (*)] 50,000 unit PO Q30D 03/18/18 [Last Taken Unknown] Fluticasone/Salmeter 250/50Mcg [Advair 250/50 (*)] 1 puffs IH BID 03/18/18 [ Last Taken Unknown] Loratadine [Claritin 10 mg] 10 mg PO DAILY PRN 03/18/18 [Last Taken Unknown] ALPRAZolam [Xanax 0.5 MG (*)] 0.5 mg PO TID PRN tab 03/27/18 [Last Taken Unknown] Amiodarone HCl [Pacerone (*)] 200 mg PO BID tab 03/27/18 [Last Taken Unknown] Apixaban [Eliquis] 2.5 mg PO BID tab 03/27/18 [Last Taken Unknown] Aspirin [Aspirin 81mg (*)] 81 mg PO DAILY tab.chew 03/27/18 [Last Taken Unknown ] Melatonin [Melatonin 3 MG (*)] 10 mg PO HS tab 03/27/18 [Last Taken Unknown] Rosuvastatin Calcium [Crestor] 10 mg PO DAILY tab 03/27/18 [Last Taken Unknown] Albuterol [Proventil Inhaler HFA (*)] 1 - 2 puffs IH Q4H PRN #1 mdi 03/29/18 [ Last Taken Unknown] Diltiazem Cd [Cardizem ER 120 MG (*)] 240 mg PO DAILY cap 03/29/18 [Last Taken Unknown] methylPREDNISolone [Medrol Dose Valentino] 1 each PO AD #1 ea 03/29/18 [Last Taken Unknown] traMADol [Ultram 50 mg (*)] 25 - 50 mg PO Q6HRS PRN tab 03/29/18 [Last Taken Unknown] Discharge Medications: Refer to the Discharge Home Medication list for PRN reason. PICC Care - Routine: N/A - Orders Services needed: Registered Nurse, Certified On Site Soil Evaluator, Master Online Content Coordinator , Physical Therapy, Occupational Therapy Oxygen: 3 l/min nasal cannula, continuous Diet Recommendation: cardiac -low fat low salt, fluid restriction (use comment for amount) Diet Texture: Regular Texture Diet, Thin Liquids, Meds Whole w/Liquids Weigh Patient: daily Espinoza: No Additional Instructions: Discharge Instructions: Call [facility] cardiac rehab to enroll in phase 2 classes if not already arranged. Sternal precautions x 4 weeks. Avoid lifting > 10lbs with an outstretched arm. Avoid push/pull activities. No driving until cleared by surgery. Elevate low legs at rest. Avoid prolonged standing or dangling. Cleanse wounds once daily with soap and water. Avoid immersion (pool, hot tub, bath) until scabs off. Ok to leave all wounds open to air. Avoid creams or ointments until scabs fall off. Log daily vital signs once home: weight, heart rate, blood pressure, and pulse oximetry if on oxygen. Call [facility] for overnight weight gain > 2lbs, weekly gain > 5lbs or worsening leg swelling. Call [employer] for resting heart rate consistently > 120 OR for systolic blood pressure consistently < 90 or > 140. Target oxygen saturation > 89%. Ok to use [id number] medications for bowel function. Chest x-ray Instructions: Please obtain a chest xray prior to surgical appointment. Chest x-rays dont require an appointment. Come to the Emergency Room entrance at the [facility] location. Sign in at the computer kiosk in the entryway. You will be given a number and may sit in the waiting area until called. You will be registered and directed to the Imaging desk on the 1st floor. This process can take up to an hour. Make sure you allow enough time before your appointment to have your x-ray taken. - Follow Up Care Current Providers and Referrals: Theodore Parker MD [Medical Doctor] - (will be arranged after surgical f/u) Delta Mack DO [Doctor of Osteopathy] - 04/02/18 9:30 am [facility] SARK[facility] [Primary Care Provider] - As per Instructions Antony Murillo MD [Medical Doctor] - (to be arranged at surgical f/u)
[2018-03-29 10:44] VITALS: BP 98/51
--- NOTE | 2018-03-29 11:43 | ASMTDCNOTE ---
Case Management Discharge Discharge Order Complete? Answers: Yes Patient to Obtain Answers: Other Notes: [facility] Medications Transportation Arranged Answers: [facility] will Pick (Date 03/29/2018 11:30 AM & Time) Case Management Transport Answers: Yes Form Complete Faxed Final Orders Answers: Yes Agency/Facility Transfer Answers: Yes Report Printed & Faxed to Receiving Agency Discharge Comments Notes: 03/29/2018 Case Management Note Ata Ernandez spoke with medical service representative at [facility] who accepted pt. Arranged transport with [facility] stretcher d/t need for O2 monitoring and pt impulsive behaviors. Faxed final orders. RN called report. Date Signed: 03/29/2018 11:42 AM Electronically Signed By:Shaina Banda RN
--- NOTE | 2018-03-29 11:44 | ASDISCHSUM ---
Discharge Information Plan Status:SNF Medically Cleared to Leave:03/29/2018 Discharge Date:03/29/2018 11:33 AM CM D/C Disposition:Half-Way Facility ADT D/C Disposition:Half-Way Facility Projected Discharge Date:03/28/2018 11:00 AM Transportation at D/C:ALS/BLS Discharge Delay Reason: Follow-Up Date:03/28/2018 11:00 AM Discharge Slot: Final Diagnosis: Placement Information Referral Type:*Fpc/SNF Referral ID:[id number] Provider Name:Duyen Dillonulder Address 1:[address] Address 2: City:[place] Selection Factors: State:[place] Patient Contact Information Contact Name:DAVID Relationship:Daughter Address:[address] City:[place] Alternate Phone: State/Zip Code:[place] [address] Email: Financial Information Financial Class:Medicare Primary Plan Desc:MEDICARE INPATIENT Primary Plan Number:[id number] Secondary Plan Desc:MED[place] Secondary Plan Number:[id number] Assessment Information LACE LACE Length of stay for Answers: 7-13 days current admission Acuity / Level of Answers: Yes Care: Did the patient have an inpatient admission? Comorbidities - select Answers: Cerebrovascular disease all that apply (CVA, TIA, aneurysms, vasc ular dementia) Coronary Artery Disease Dementia Opioid dependence / Chronic pain Previous myocardial infarction Other Notes: AFib; HTN; GERD # of Emergency department Answers: 1-2 visits in the last 6 months Score: 21 Date Signed: 03/29/2018 11:42 AM Electronically Signed By:Shaina Banda RN [facility] JESSICA Progress Note CM Note CM Note Notes: 03/18/2018 Case Management Note Reviewed chart and discussed with Abad at [facility]. 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 Staff at [facility] transported pt to [facility] for evaluation d/t pt complaint of radiating chest pain. Faxed updates to Abad at [facility]. Case Management d/c poc: return to [facility] Case Management to follow. Date Signed: 03/18/2018 12:21 PM Electronically Signed By:Shaina Banda RN [facility] CM Progress Note CM Note CM Note Notes: 03/19/2018 Case Management Note Pt transfer to ICU after open heart surgery. Case Management d/c poc: return to [facility]. Date Signed: 03/19/2018 10:22 AM Electronically Signed By:Shaina Banda RN [facility] CM Progress Note CM Note CM Note Notes: Patient resides at [facility]. PT/OT are recommending SNF rehab. Patient will return to [facility] for her rehab there. CM will follow. Date Signed: 03/22/2018 09:20 AM Electronically Signed By:Natalee Quach LCSW [facility] CM Progress Note CM Note CM Note Notes: Sent [facility] updated pt info. Continues to be in Afib. Date Signed: 03/25/2018 05:01 PM Electronically Signed By:Mary Peraza LCSW [facility] CM Progress Note CM Note CM Note Notes: Pts case discussed w/ KIMBERLY Berumen and MARCI Miles. Dr. Mack and KIMBERLY Berumen reports that pt is medically stable to d/c. Pt wants to appeal her d/c. Pt is reports feeling short of breath after a shower. Sarah from case management will be working with pt to appeal her d/c. CM notified Abad at [facility]. CM to follow. Plan: [facility] Date Signed: 03/27/2018 11:57 AM Electronically Signed By:NAUN Tompkins [facility] CM Progress Note CM Note CM Note Notes: Abad from [facility] reports that they are unable to meet pts level of care. CM involved [place]onia and Milagros Holder. Milagros is requesting that pt has an ethics consult. CM communicated this to KIMBERLY Berumen. CM spoke to pts daughter Carmen and she reports that pts MDPOA is her son Kwasi Izaguirre. Carmen reports that Kwasi is currently in [place] and does not have any services. Carmen reports that if CM needs to get in contact w/ Kwasi to have her contact him directly. Carmen does not have the MDPOA paperwork. She reports that her sister Edilma has it. CM left a msg for Edilma (P# [phone]). CM to follow. Plan: TBD Date Signed: 03/27/2018 03:08 PM Electronically Signed By:NAUN Tompkins [facility] JESSICA Progress Note CM Note CM Note Notes: CM spoke to Edilma, daughter for dispo planning. Edilma reports that Kwasi Izaguirre, her nephew is pts guardian. Edilma reports that she does not have any of the guardianship paperwork. Edilma provided CM w/ Kwasi's phone number (P#: [phone]). CM called and left a msg. CM left a msg w/ Abad from [facility] requesting guardianship paperwork sent to [facility]. CM provided Abad w/ the fax number for 2w. JESSICA to follow. Date Signed: 03/27/2018 04:00 PM Electronically Signed By:NAUN Tompkins [facility] JESSICA Progress Note CM Note JESSICA Note Notes: Milagros Holder and myself have spoken with the DON at [facility] this evening. She wants to ensure patient is medically stable and that they are able to handle the precautions/recommendations. I have sent updated medical notes from today via [employer]. CM will contact the guardian to ensure he understands the expectations/plan on . DON also requesting a handoff from Dr. Mack or perhaps one of his PAs to their medical provider - Dr. Bullard. Will obtain that contact information on and speak with Dr. Mack's team about the possibility of doing this. CM will continue to follow case. Plan: Likely return to [facility] Date Signed: 03/27/2018 05:34 PM Electronically Signed By:Latonia Garland RN [facility] Progress Note CM Note CM Note Notes: Guardianship paperwork obtained from [facility] and it is currently in pts chart. CM provided KIMBERLY Berumen w/ phone number for the medical staff director at [facility]. Ata will contact the medical staff director tomorrow if pt is medically stable to d/c. Pt is currently in afib. CM met w/ chance Villalpando and Carmen, daughter today. CM to follow. Plan: Most likely return back to [facility] Date Signed: 03/28/2018 04:40 PM Electronically Signed By:NAUN Tompkins Case Management Discharge Plan Note Case Management Discharge Discharge Order Complete? Answers: Yes Patient to Obtain Answers: Other Notes: [facility] Medic[facility] Transportation Arranged Answers: [facility] Transport will Pick (Date 03/29/2018 11:30 AM & Time) Case Management Transport Answers: Yes Form Complete Faxed Final Orders Answers: Yes Agency/Facility Transfer Answers: Yes Report Printed & Faxed to Receiving Agency Discharge Comments Notes: 03/29/2018 Case Management Note Ata Ernandez spoke with medical staff director at [facility] who accepted pt. Arranged transport with [facility] villagraner d/t need for O2 monitoring and pt impulsive behaviors. Faxed final orders. RN called report. Date Signed: 03/29/2018 11:42 AM Electronically Signed By:Shaina Banda RN Intervention Information Intervention Type:*VARGAS-Signed Date of Service:03/18/2018 11:17 AM Patient Type:Observation Staff Member:Sarah Silva Hours: Discipline: Severity: Comment: Intervention Type:*IM-Signed Date of Service:03/27/2018 12:15 PM Patient Type:Inpatient Staff Member:Sarah Silva Hours: Discipline: Severity: Comment:Patient is appealing her discharge. Sh e stated that she became short of breath after getting out of the shower and does not feel that she is able to care for herself. Patient stated she was unable to dial the [facility] number. Using the room phone, I dialed [facility] for her and then briefed her on the appeal process steps. I explained that [facility] will let her know of their decision within 24 hours. I left my number with the patient for any additional questions.
[2018-03-30] MEDS ORDERED: methylPREDNISolone 4 MG TAB PO SCH (07:30)
[2018-03-31] MEDS ORDERED: methylPREDNISolone 4 MG TAB PO SCH (07:30)
[2018-04-01] MEDS ORDERED: methylPREDNISolone 4 MG TAB PO SCH (07:30)
[2018-04-02] MEDS ORDERED: methylPREDNISolone 4 MG TAB PO SCH (07:30)
== END 2018-03-29 11:33 | DRG 234 ==
LOC: EDUNIT# → F2W 03-18 01:54 → OBSVTOIN 03-18 16:49 → F2N 03-19 10:26 → F2W 03-26 16:30
PROVIDERS: ADMIT Student in an Organized Health Care Education/Training Program; ATTEND Thoracic Surgery (Cardiothoracic Vascular Surgery)
PROC: 4A023N7 Measurement of Cardiac Sampling and Pressure, Left Heart, Percutaneous Approach (ICD-10-PCS; 2018-03-18)
PROC: B2111ZZ Fluoroscopy of Multiple Coronary Arteries using Low Osmolar Contrast (ICD-10-PCS; 2018-03-18)
PROC: B2151ZZ Fluoroscopy of Left Heart using Low Osmolar Contrast (ICD-10-PCS; 2018-03-18)
PROC: 02100Z9 Bypass Coronary Artery, One Artery from Left Internal Mammary, Open Approach (ICD-10-PCS; principal; 2018-03-19 09:00)
PROC: 06BQ4ZZ Excision of Left Saphenous Vein, Percutaneous Endoscopic Approach (ICD-10-PCS; principal; 2018-03-19 09:00)
PROC: 5A1223Z Performance of Cardiac Pacing, Continuous (ICD-10-PCS; principal; 2018-03-19 09:00)
PROC: 021109W Bypass Coronary Artery, Two Arteries from Aorta with Autologous Venous Tissue, Open Approach (ICD-10-PCS; principal; 2018-03-19 09:00)
PROC: 02L70CK Occlusion of Left Atrial Appendage with Extraluminal Device, Open Approach (ICD-10-PCS; principal; 2018-03-19 09:00)
PROC: 30233N1 Transfusion of Nonautologous Red Blood Cells into Peripheral Vein, Percutaneous Approach (ICD-10-PCS; 2018-03-19 09:00)
DX: I25.110 Atherosclerotic heart disease of native coronary artery with unstable angina pectoris (principal); D62 Acute posthemorrhagic anemia; J98.4 Other disorders of lung; I48.0 Paroxysmal atrial fibrillation; J44.9 Chronic obstructive pulmonary disease, unspecified; F41.9 Anxiety disorder, unspecified; I25.2 Old myocardial infarction; F03.90 Unspecified dementia, unspecified severity, without behavioral disturbance, psychotic disturbance, mood disturbance, and anxiety; E78.5 Hyperlipidemia, unspecified; I10 Essential (primary) hypertension; Z23 Encounter for immunization; Z72.0 Tobacco use; Z95.5 Presence of coronary angioplasty implant and graft; Z79.01 Long term (current) use of anticoagulants
CPT/HCPCS: 82435-PO; 82565-PO; 82947-PO; 84132-PO; 84295-PO; 84484-PO; 84520-PO; 85014-PO; 97110-GP; 97116-GP; 97162-GP; 97166-GO; 97530-GO; 97530-GP; 97535-GO; G0008; G8978-GP-CK; G8979-GP-CJ; G8987-GO-CL; G8988-GO-CI; J0153; J0282; J0583; J0690; J1265; J1644; J1650; J1815; J1885; J1940; J1956; J2001; J2150; J2250; J2260; J2270; J2370; J2405; J2440; J2704; J2720; J2765; J2920; J2930; J3010; J3370; J3475; J3480; J7060; J7512; J7608; P9016; P9041; Q9967